=== PATIENT | male | born 1985 | race Caucasian/White ===

== ENCOUNTER 2016-09-17 16:21 | Inpatient (IN) | payer OTHER ==
[2016-09-17] MEDS ORDERED: VANCOMYCIN HCL/NORMAL SALINE 250 ML IV ONE ×2 (18:03→22:00)
[2016-09-17] MEDS ORDERED: MICAFUNGIN NA 100 MG in NS 100 ML IV ONE (18:10)
[2016-09-17 18:12] LABS: % IMMATURE GRANULYOCYTES 0.8 % (0.0-1.1); ABSOLUTE IMMATURE GRANULOCYTES 0.12 10^3/uL (0.00-0.10); ADD DIFF? NO; ADD MORPH? NO; ADD SCAN? NO; ATYPICAL LYMPHOCYTE FLAG 0 (0-99); FRAGMENT RBC FLAG 0 (0-99); HEMATOCRIT 44.4 % (40.0-51.0); HEMOGLOBIN 14.7 g/dL (13.7-17.5); LEFT SHIFT FLG 10 (0-99); LIPEMIA HEMOLYSIS FLAG 80 (0-99); MEAN CELL HEMOGLOBIN 29.1 pg (27.9-34.1); MEAN CELL HEMOGLOBIN CONCENTR. 33.1 g/dL (32.4-36.7); MEAN CELL VOLUME 87.9 fL (81.5-99.8); MEAN PLATELET VOLUME 9.8 fL (8.7-11.7); PLATELET CLUMPS FLAG 0 (0-99); PLATELET COUNT 392 10^3/uL (150-400); RED BLOOD CELL COUNT 5.05 10^6/uL (4.40-6.38); RED CELL DISTRIBUTION WIDTH 12.9 % (11.5-15.2)
[2016-09-17] MEDS ORDERED: GADOBUTROL 10 ML VIAL IVP ONE (18:25)
[2016-09-17 18:27] LABS: ANION GAP 16 mEq/L (8-16); CALCIUM 9.6 mg/dL (8.5-10.4); CARBON DIOXIDE 20 mEq/l (22-31); CHLORIDE 100 mEq/L (97-110); GLOMERULAR FILTRATION RATE > 60; GLUCOSE 87 mg/dL (70-100); POTASSIUM 4.5 mEq/L (3.5-5.2); SODIUM 136 mEq/L (134-144)
[2016-09-17] MEDS ORDERED: NS 1,000 ML IV SCH (19:00)
[2016-09-17 19:09] LABS: ALBUMIN 4.1 g/dL (3.5-5.0); BILIRUBIN,TOTAL 0.8 mg/dL (0.1-1.4); BILIRUBIN-CONJUGATED 0.7 mg/dL (0.0-0.5); BILIRUBIN-UNCONJUGATED 0.1 mg/dL (0.0-1.1); TOTAL PROTEIN 6.9 g/dL (6.3-8.2)
[2016-09-17] MEDS ORDERED: DIAZEPAM 5 MG TAB PO PRN (20:43)
[2016-09-17] MEDS ORDERED: oxyCODONE IR 5 MG TAB PO PRN (20:43)
[2016-09-17] MEDS ORDERED: POLYETHYLENE GLYCOL 3350 17 GM PKT PO PRN (20:44)
[2016-09-17] MEDS ORDERED: BISACODYL 10 MG SUPP PR PRN (20:44)
[2016-09-17 21:12] LABS: SEDIMENTATION RATE 25 MM/HR (0-15)
--- NOTE | 2016-09-17 21:45 | GCON ---
[f rep st] CONSULTATION TIME OF DAY OF CONSULTATION: In the emergency room is 5 p.m. on 09/17/2016. HOSPITAL COURSE/HISTORY/MAJOR MEDICAL FINDINGS: The patient is a 30-year-old gentleman, who on July 10, 2016, underwent a bilateral hemilaminotomy and diskectomy by Dr. Ellis. He initially did okay postoperatively but then developed acute leg pain and back pain approximately 1 month ago. He came to [place] emergency room, underwent MRI, which demonstrated edema and possible infectious changes at the L4-5 disk space. He was taken to the operating room by Dr. Ellis last week for redo decompression and washout. There was some free fluid there and some vancomycin powder was placed at that time. Initial Gram stain was negative. However, over the weekend his cultures came back positive for Aspergillus. Because of that, Infectious Disease with Dr. Gibbons was remotely consulted. As his cultures came back positive with Aspergillus, voriconazole was called in for him and the patient has started this medication p.o. The patient contacted our office over the weekend because he was having worsening hip pain. He then called our office again today because his hip pain was becoming acute. He was unable to bear weight on his leg and his knee was starting to hurt. When he left the hospital, from [facility], he was on Tylenol only and ambulating well. Because of this acute change, we recommended that he come to [facility] emergency room for further evaluation and treatment. Upon examining the patient in the emergency room today, he states that his greatest pain is over his right hip, on the side and the back, and the center in his groin. His , who is with him, states that they had recently gone camping about 3 or 4 weeks ago, and of note, prior to surgery he did have a yeasty rash in his groin. He denies any loss of function or weakness in his legs and denies any loss of bowel or bladder control. PAST MEDICAL HISTORY: Is significant for the recent diskectomy with redo decompression last week at the L4-5 disk space. SOCIAL HISTORY: The patient is here with his . She is . He does not drink any alcohol, smoke, or do illicit drugs. FAMILY HISTORY: Noncontributory. ALLERGIES: No known drug allergies. HOME MEDICATIONS: Include Tylenol as well as the voriconazole. PHYSICAL EXAM: VITALS: BP is 133/87, heart rate is 115, respiratory rate is 18 , he is 96% on room air, temp is 36.5. GENERAL: The patient is in no acute distress. He is alert and oriented x3, answers all questions appropriately. His affect is appropriate for given situation. NEUROLOGIC: Cranial nerves 2- 12 grossly intact. EOMI, PERRLA. The patient is a 5/5 and equal in his bilateral upper and bilateral lower extremities, including his deltoids, triceps , biceps, wrist flexors, extensors, interossei, intrinsic medical billing specialist, iliopsoas, hamstrings, quadriceps, plantar flexion, dorsiflexion, EHL. Sensation is intact in bilateral upper and bilateral lower extremities. Incision is clean, dry, intact without any swelling, erythema, or discharge. ASSESSMENT AND PLAN: The patient is a 30-year-old gentleman, who recently underwent an L4-5 microdiskectomy with washout. Cultures came back positive for Aspergillus and he was started on voriconazole. He has had worsening pain in his hip and his knee in the last 48 hours. At this point in time, we have asked the ER to repeat imaging of the lumbar spine as well as to get a new MRI of the hip and an x-ray of the lungs, given his recent diagnosis. We will have him admitted to Medicine for full workup as well as Infectious Disease consulted. Would recommend q.4 hour neuro checks. Optimization of pain management. If the patient has any change in neurologic or motor exam, please notify Neurosurgery. The patient was seen in the ER with Dr Ellis and he also discussed the plan with the patient and his , who were in agreement with the plan. /[id number]/MODL MTDD
--- NOTE | 2016-09-17 22:00 | GHP ---
[f rep st] HISTORY AND PHYSICAL DATE OF ADMISSION: 09/17/2016 CHIEF COMPLAINT: Back pain. Aspergillus back infection. HISTORY OF PRESENT ILLNESS: The patient is a pleasant 30-year-old male with history of lumbar back pain who underwent L4-5 micro diskectomy on July [address] Teo Wood. Reason for procedure was progressive back pain and inability to ambulate normally and increased "nerve pain in his left leg". Back pain initially started in 2013 as spasms without overt trauma or injury. Six weeks after his surgery he started physical therapy and developed increased pain and twitching in lumbar region. He then had "spasm attack" and went to ER in [place] and was treated for pain and discharged home. Last week, the pain became so bad that he went went back to [place] and underwent decompression and washout. He worked with PT on Saturday and was discharged on Keflex. Cultures resulted 09/15/16 positive for Aspergillus and ID prescribed Voriconazole. At home that night, he could not get ouf of bed or apply any pressure on his legs. The pain in back had radiated to right hip before, but has progressed this weekend without redness or warmth; pain worse with standing. Has had intermittent chills and subjective fevers. No nausea, vomiting, or diarrhea; has been constipated. Pain controlled with minimal narcotics at home. Denies recurrent GI, respiratory infections a child. No prior joint infections. Has asthma and would have "yearly URI" due to that. Camped in [place] for 3 nights in August, [place] in July and stayed in hotel. Lives in a town home built in the that has been renovated in [place]. His neighbors recently gutted their home to rebuild. Denies any IV drug use. Has been on prednisone recently, but for only 10 days. REVIEW OF SYSTEMS: SKIN: complained of small blisters along the edge of his fingers recently in which his PCP called eczema blisters. I completed a 10-point review of systems, negative except as noted in HPI. PAST MEDICAL HISTORY: Lumbar back pain. PAST SURGICAL HISTORY: 1. [place] teeth. 2. Microdiskectomy July 10 and then recent washout and decompression. FAMILY HISTORY: Father with heart disease. Paternal grandmother with diabetes , asthma SOCIAL HISTORY: Lives in [place] with his who is with their first child. A cigar 1-2 times a year. Rare alcohol. No IV drug use. ALLERGIES: Cats. HOME MEDICATIONS: See medication reconciliation. PHYSICAL EXAMINATION: VITAL SIGNS: Temperature 37.4 blood pressure 128/74, heart rate 80s respiration 18, 96% on room air. GENERAL: Patient is lying in bed in no acute distress. Very pleasant. HEENT: PERRLA. EOMI. Oropharynx is clear. No exudate or lesions. CV: Regular rate and rhythm. No murmurs, gallops, or rubs. LUNGS: Clear to auscultation bilaterally. ABDOMEN: Soft, nontender, nondistended. Positive bowel sounds. : No suprapubic tenderness. Mild inguinal rash which appears to be a mild heat rash. MUSCULOSKELETAL: 5/5 upper extremity strength bilaterally. Right hip joint with no reproducible pain, no overlying erythema or warmth. ABDOMEN: Decreased plantar dorsiflexion bilateral lower extremities. No point tenderness over the spine. His surgical incision is clean, dry, intact. No surrounding erythema or signs of infection. NEURO: Normal sensation to touch. PSYCH: Alert and oriented x3 next. LABS: WBC 14, hemoglobin 14, hematocrit 44, platelets 392. Sodium 136, potassium 4.5, carbon dioxide 100, chloride 100, carbon dioxide 20, BUN 20, creatinine 1, glucose 87, calcium 9.6, total bilirubin 0.6, AST 32, ALT 47. CRP is 64. Total protein is 6.9, albumin is 4.1. Immunoglobulin and complement levels are pending. HIV is negative. Chest x-ray, reviewed by me, no opacity or cavitary lesions. Lumbar spine MRI: Postoperative changes at L4-L5 with residual abnormal signal intensity in the disk space as well as continuous endplates of L4-L5 consistent with a history of Aspergillus infection. There has been a posterior decompression laminectomy L4-L5. Soft tissue component eccentric toward the left of the operative level showed an enhancement that may reflect postoperative inflammatory tissue. Lower extremity MRI is pending. ASSESSMENT AND PLAN: 1. Aspergillus lumbar discitis: Unclear etiology; not known to be immunocompromised. HIV negative. Check immunoglobulins and complement levels. Denies any recurrent infections as a child. I spoke with Dr. Luz with Infectious Disease and will treat with Micafungin and Vancomycin. NSGY evaluated and recommended repeat lumbar and hip MRI. Blood cultures pending. Obtain [place] records. 2. Right hip pain: not completely new for him. MRI is pending; if any evidence of fluid, sampling would be warranted. 3. Leukocytosis: Likely secondary to #1 versus stress response. Afebrile currently. Blood cultures are pending. Chest x-ray is negative. 4. Acute on chronic back pain: pain controlled on minimal oxycodone and Valium. 5. Constipation:bowel regimen. 6. Mild acute kidney injury: Cr is 1. IVFs 7. DVT prophylaxis. Lovenox. DISPOSITION: Patient warrants inpatient admission given Aspergillus infection warranting IV antifungal and antibiotics and ID evaluation. /[id number]/MODL MTDD
[2016-09-17] MEDS: SENNOSIDES/DOCUSATE SODIUM TAB PO SCH (22:39)
[2016-09-17] MEDS: ACETAMINOPHEN 325 MG TAB PO PRN (22:41)
--- NOTE | 2016-09-17 23:33 | EDPHY ---
H & P Stated Complaint: Laminectomy , increased pain to right leg Time Seen by Provider: 09/17/16 16:37 HPI/ROS: CHIEF COMPLAINT: Back and left leg pain HISTORY OF PRESENT ILLNESS: This is a 30-year-old immunocompetent male who underwent bilateral hemilaminotomy and diskectomy at L4-5 on July 10 of this year. This surgery was performed by Dr. Ellis (at [facility]). His initial postoperative course was unremarkable but toward the end of July he developed back and leg pain. An MRI scan performed at that time showed changes at the L4- 5 disc space suggestive of infection. On Saturday of last week he return to the operating room for repeat decompression and washout. Cultures obtained during that surgery are positive for Aspergillus. In consultation with Infectious Disease, Dr. Gibbons, he was started on voriconazole. He has taken 3 voriconazole pills. He was discharged from the hospital on Saturday, 3 days ago, and has had progressively worsening hip and leg pain since returning home. He has been unable to bear weight because of pain. He feels as if his muscles are not engaging. He has been using a walker for the last few days. Both legs feel weak. He has not had bowel or bladder changes but does report constipation (not new). REVIEW OF SYSTEMS: A ten point review of systems was performed and is negative with the exception of the items mentioned in the HPI. He states that he has had a groin rash for the past few months. He describes bumps bilateral groin area. No drainage, no fever. Source: Patient, Family, Old records Exam Limitations: No limitations - Personal History Current Tetanus Diphtheria and Acellular Pertussis (TDAP): Yes - Medical/Surgical History PMH: 1. L4-5 bilateral hemilaminotomy and diskectomy on July 10, 2016 2. September 12, 2016 repeat lumbar decompression with washout 3. Environmental asthma Hx Asthma: Yes Hx Chronic Respiratory Disease: No Hx Diabetes: No Hx Cardiac Disease: No Hx Renal Disease: No Hx Cirrhosis: No Hx Alcoholism: No Hx HIV/AIDS: No Hx Splenectomy or Spleen Trauma: No - Social History Smoking Status: Never smoked Additional Social History: He works as a software engineer intern. He is ; he and his are expecting their 1st child later this summer. He he occasionally smokes a cigar. He drinks alcohol socially. No illicit drugs. - Physical Exam Exam: General Appearance: Alert. Vital signs reviewed. Blood pressure 133/87, heart rate 115 at triage. Eyes: Pupils equal and round, no conjunctival injection, no discharge. Anicteric. ENT, Mouth: Mucous membranes are moist, no oropharyngeal erythema or edema. Neck: No lymphadenopathy, supple. Respiratory: Lungs are clear to auscultation; no wheezes, rales, or rhonchi. Cardiovascular: Tachycardic; no murmur, rub, or gallop. Gastrointestinal: Abdomen is soft and nontender, no masses or organomegaly, bowel sounds normal. Groin: Papular rash in the inguinal creases bilaterally. No surrounding erythema. No purulence. Skin: Warm and dry, no rashes on exposed skin, normal color. Back: Surgical incision is clean and dry. No drainage. Extremities: No lower extremity edema, no calf tenderness or swelling. Full active and passive range of motion of his left hip, knee, and ankle. Neurological: Alert and oriented. Moving all four extremities easily and equally. Lower extremity strength is 5/5 with testing of major motor groups. Sensation is intact to light touch over both lower extremities. Deep tendon reflexes are 2+ in the knees, 1+ in the ankles. There are 2 beats of clonus bilaterally. Psychiatric: Normal affect. Constitutional: Initial Vital Signs Temperature (C) 36.5 C 09/17/16 16:22 Heart Rate 115 H 09/17/16 16:22 Respiratory Rate 18 09/17/16 16:22 Blood Pressure 133/87 H 09/17/16 16:22 O2 Sat (%) 96 09/17/16 16:22 O2 Delivery Mode Room Air Allergies/Adverse Reactions: No Known Allergies Allergy (Verified 09/17/16 20:07) Home Medications: Medication Instructions Recorded Baclofen [Baclofen 10 mg (*)] 10 mg PO Q8H PRN 09/17/16 Cephalexin [Keflex (*)] 500 mg PO QID 09/17/16 Diazepam [Valium 5 MG (*)] 5 mg PO DAILY PRN 09/17/16 Lactulose 5 - 10 ml PO Q6H 09/17/16 Omeprazole 40 mg PO DAILY 09/17/16 Voriconazole 200 mg PO BID 09/17/16 oxyCODONE IR [Oxycodone Ir (*)] 5 - 10 mg PO Q4H PRN 09/17/16 Medical Decision Making - Diagnostics Imaging Results: Imaging Impressions Lumbar Spine MRI 09/17/16 17:27 Impression: 1. Postoperative changes at L4-L5, with residual abnormal signal intensity in the disk space as well as the contiguous endplates of L4 and L5, consistent with the history of Aspergillus infection. 2. There has been a posterior decompressive laminectomy at L4-L5. There is an element of central canal stenosis and possible arachnoiditis at the L4-L5 level. 3. Soft tissue component eccentrically towards the left at the operative level showing enhancement that may reflect postoperative/inflammatory tissue. 4. See above report for additional findings. Chest X-Ray 09/17/16 17:33 Impression: Chest negative for acute disease. ED Course/Re-evaluation: 30-year-old male with an apparent fungal infection following lumbar diskectomy. He has had oral antifungal medication. He presents with worsening pain, making it difficult for him to weightbear. He was seen in the emergency department by the neurosurgical service. Infectious Disease has been consulted. He is being admitted to the hospitalist service. MRI of the lumbar spine and the left hip ordered. Chest x-ray also ordered to rule out infection involving the chest cavity. I reviewed his labs. White blood cell count is elevated at almost 15,000. CRP and sed rate are also elevated. Does not appear septic. HIV pending. Micofungin and vancomycin ordered as per Infectious Disease recommendation. Differential Diagnosis: Likely post operative fungal infection but possibility of bacterial infection also exists. Other possibilities include recurrent disc herniation, epidural hematoma, postoperative pain. - Data Points Medications Given: Discontinued Medications Micafungin Sodium 100 mg/ (Sodium Chloride) 100 mls @ 100 mls/hr IV EDNOW ONE Stop: 09/17/16 19:09 Last Admin: 09/17/16 20:07 Dose: 100 mls Vancomycin/Sodium Chloride (Vancomycin 1 Gm (Premix)) 250 mls @ 250 mls/hr IV EDNOW ONE PRN Reason: Protocol Stop: 09/17/16 22:59 Last Admin: 09/17/16 22:04 Dose: 250 mls Departure - Departure Disposition: [facility] Inpatient Acute Clinical Impression: Fungal infection lumbar Condition: Good
[2016-09-18] MEDS: ONDANSETRON 4 MG/2 ML VIAL IVP PRN (04:59)
[2016-09-18 05:04] LABS: % IMMATURE GRANULYOCYTES 0.9 % (0.0-1.1); ABSOLUTE IMMATURE GRANULOCYTES 0.11 10^3/uL (0.00-0.10); ADD DIFF? NO; ADD MORPH? NO; ADD SCAN? NO; ATYPICAL LYMPHOCYTE FLAG 0 (0-99); FRAGMENT RBC FLAG 0 (0-99); HEMATOCRIT 41.7 % (40.0-51.0); LEFT SHIFT FLG 10 (0-99); LIPEMIA HEMOLYSIS FLAG 80 (0-99); MEAN CELL HEMOGLOBIN 28.8 pg (27.9-34.1); MEAN CELL HEMOGLOBIN CONCENTR. 33.6 g/dL (32.4-36.7); MEAN CELL VOLUME 85.8 fL (81.5-99.8); MEAN PLATELET VOLUME 9.4 fL (8.7-11.7); PLATELET CLUMPS FLAG 0 (0-99); PLATELET COUNT 376 10^3/uL (150-400); RED BLOOD CELL COUNT 4.86 10^6/uL (4.40-6.38); RED CELL DISTRIBUTION WIDTH 12.6 % (11.5-15.2)
[2016-09-18 05:32] LABS: ANION GAP 12 mEq/L (8-16); CALCIUM 9.6 mg/dL (8.5-10.4); CARBON DIOXIDE 21 mEq/l (22-31); CHLORIDE 104 mEq/L (97-110); CREATININE 0.9 mg/dL (0.7-1.3); GLOMERULAR FILTRATION RATE > 60; GLUCOSE 99 mg/dL (70-100); POTASSIUM 4.9 mEq/L (3.5-5.2); SODIUM 137 mEq/L (134-144)
--- NOTE | 2016-09-18 07:30 | NEUSURGPN ---
Assessment/Plan: 30y/o male with s/p L4/5 microdiscetomy/decmpression in June 2016 and then redo decompression adn washout on 09/12/16 at [facility] found to Aspergillios infection - will consult IR for percutaneous drain placement today -Hip MRI results pending -Optimize pain management -Appreciate ID recommendations and consultation -Please notify NS with any change in neuro/motor exam Subjective: Hip and low back pain Objective: NAD A&Ox3 MAEx4 5/5 and equal in BUE and BLE. Incision c/d/i - Physician Patient Seen by : [facility] Physical Exam - Vitals, I&O, Labs I and O 09/17/16 09/18/16 09/19/16 05:59 05:59 05:59 Intake Total 400 Output Total 725 Balance -325 Weight 86.183 kg Intake: Oral (ml) 400 Output: Urine (ml) 725 Urinal 725 Other: Number of Voids Urinal 2 Vital Signs Temp Pulse Resp BP Pulse Ox 36.7 C 86 16 119/73 95 09/18/16 04:23 09/18/16 04:23 09/18/16 04:23 09/18/16 04:23 09/18/16 04:23 Laboratory Results 09/18/16 04:55 09/18/16 04:55 ICD10 Worksheet Patient Problems: Problems Problem Status Onset Lumbar back pain Acute - ICD10 Problem Qualifiers (1) Lumbar back pain Qualifiers: Chronicity: C Back pain laterality: B Sciatica presence: S Sciatica laterality: S
[2016-09-18] MEDS: ENOXAPARIN 40 MG/0.4 ML SYR SC SCH (07:49)
[2016-09-18] MEDS ORDERED: PANTOPRAZOLE SODIUM 40 MG TAB PO SCH (09:00)
[2016-09-18] MEDS: MICAFUNGIN NA 100 MG in NS 100 ML IV SCH (09:05)
--- NOTE | 2016-09-18 10:00 | HOSPPROG ---
Hospitalist Progress Note Assessment/Plan: Patient is a 30-year-old male with a history of lumbar back pain who had a L4-5 microdiskectomy in June. Last week the pain became so bad he went to [place] and underwent a decompression and washout. He was discharged on Keflex. Cultures were obtained on 09/15/2016 which were positive for Aspergillus. At that time infections Disease prescribed for voriconazole. He presented to the emergency room with worsening back pain. Today is my 1st encounter with the patient. Chart reviewed. Discussed his care with Dr. Morrison. 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 on Micafungin & Voriconazole has interactions w Valium, oxy & Protonix/ will dc these and start iv Dilaudid pharmacy to evaluate other antispasmodic medications offered patient a PROOF CLERK if needed/ he wants to hold off for now *right hip pain MRI shows nothing acute suspect it is referred pain *Leukocytosis due to the above, will follow *Acute on chronic back pain will add prn Dilaudid *constipation bowel protocol *dvt prophylaxis: hold any medical treatment/ patient to get drain in, should be able to mobilize *Plan: increase fluids while NPO, start bowel regimen/ hasn't had a bowel movement in multiple days/ start iv Dilaudid Subjective: Devin is feeling his back is starting to have spasms. Objective: Vital Signs Temp Pulse Resp BP Pulse Ox 36.6 C 95 16 121/74 H 95 09/18/16 07:44 09/18/16 07:44 09/18/16 07:44 09/18/16 07:44 09/18/16 07:44 Laboratory Results 09/18/16 04:55 09/18/16 04:55 09/17/16 09/18/16 09/19/16 05:59 05:59 05:59 Intake Total 400 Output Total 725 250 Balance -325 -250 - Physical Exam Constitutional: appears nourished, uncomfortable, No not in pain Eyes: PERRL Ears, Nose, Mouth, Throat: hearing normal Cardiovascular: regular rate and rhythym Respiratory: no respiratory distress Gastrointestinal: normoactive bowel sounds Skin: warm, normal color Musculoskeletal: generalized weakness Neurologic: AAOx3, sensation intact bilaterally Psychiatric: interacting appropriately, not anxious ICD10 Worksheet Patient Problems: Problems Problem Status Onset Lumbar back pain Acute
[2016-09-18] MEDS: HYDROmorphONE/DILAUDID 1 MG/ML SYR IVP PRN ×3 (10:42→18:14)
[2016-09-18] MEDS: BACLOFEN 10 MG TAB PO PRN ×2 (10:58→20:32)
[2016-09-18] MEDS: VORICONAZOLE IV SCH ×2 (11:04→20:36)
[2016-09-18] MEDS: D5W IV SCH ×2 (11:04→20:36)
[2016-09-18] MEDS ORDERED: fentaNYL 100 MCG/2 ML INJ ONE (14:01)
[2016-09-18] MEDS ORDERED: MIDAZOLAM 2 MG/2 ML VIAL ONE (14:02)
--- NOTE | 2016-09-18 14:47 | POSTOPPROG ---
Post Op Note Date of Operation: 09/18/16 Surgeon: Ro Long Anesthesia: IV Sedation (fentanyl and versed) Pre-op Diagnosis: back pain Post-op Diagnosis: same Indication: post op fluid collection Procedure: lumbar drain placement Findings: 15cc of pus aspirated at L4-5 Inf/Abcess present in the surg proc area at time of surgery?: Yes Depth: Superfical (Skin SQ) EBL: Minimal Complications: none Drains: Other (8Fr pigtail)
[2016-09-18] MEDS ORDERED: HYDROmorphONE/DILAUDID 1 MG/ML SYR ONE (15:33)
--- NOTE | 2016-09-18 15:37 | GCON ---
[f rep st] CONSULTATION INFECTIOUS DISEASE CONSULTATION DATE OF CONSULTATION: 09/18/2016 REFERRING PHYSICIAN: Eder Ellis MD REASON FOR CONSULTATION: Postoperative lumbar back infection. CHIEF COMPLAINT: Worsening back pain and hip pain. HISTORY OF PRESENT ILLNESS: This is a 30-year-old male, with a past medical history significant for asthma and spinal stenosis, who underwent bilateral hemilaminotomy and microdiskectomy on July 10, 2016. This was done at [facility]. He states that he did well postoperatively without pain or drainage from his operative site. Just about 6 weeks after his surgery he started physical therapy about 1-2 times a week. After the first therapy, he did feel soreness in his back, which did not resolve, and with each continued therapy he had increasing back pain. He does state that he had a steroid epidural injection shot done about a month prior to his initial surgery, which did not alleviate his pain, thus the decision was made to proceed with surgery. Around August 25, he states that he did go camping, where he was sleeping in a tent in a sleeping bag. It had intermittently rained during that trip, but he states that within his tent and sleeping bag area it was not damp or wet. He states that about a week or so prior to his redo surgery and recent washout, he did get injections to the back with lidocaine, he thinks, by his primary care doctor. Due to ongoing increasing pain, he was [facility] and was taken to surgery on the 12 of September, where he underwent L4-L5 epidural mass resection plus abscess evacuation with a redo L4-L5 diskectomy. This surgery was done at [facility]. It is unclear as to whether they have had any ongoing construction work at either of these hospital. Operative note was reviewed and there appeared to be cloudy fluid collections and loculations involving the disk space. Operative cultures were reviewed on [facility] and 1 out of 3 sets of cultures showed growth of Aspergillus fumigatus in the regular cultures as well as the fungal culture. In that particular specimen, there were 5-10 PMNs with no organisms seen on the Gram stain. The other 2 sets of cultures with greater than 25 PMNs had no growth, and a third culture with less than 5 PMNs had no growth as well. The patient was placed on vancomycin while he was in [place] last week, and then was discharged on Keflex on the 14 of September. Operative cultures then grew out Aspergillus on Saturday, the . Dr. Gibbons, was contacted via phone over the weekend and she started him on voriconazole, and he is supposed to see her for the first time tomorrow for formal consult. Due to increasing back pain and hip pain, he came in yesterday for further evaluation. He underwent a lumbar spine MRI which showed postoperative changes at L4-L5, with residual abnormal signal intensity of the disk space, as well as contiguous endplates of L4-L5. Hip MRI is pending. Chest x-ray showed no evidence of pneumonia. Blood cultures x2 sets are pending and he was started on micafungin IV last night. Today, he states that he has increasing pain with headache today. He states that he has taken 3 doses of oral voriconazole and had some blurring of vision. Other related potential exposures over the past couple of months: He lives in a townhouse that was built in the 1970s and was remodeled prior to he and his moving into it. However, over the last couple of months his next unit over to him, which is attached by an adjoining wall, has undergone significant construction and remodeling. He states that occasionally when they were painting the unit he could smell the paint fumes from his ventilation system. REVIEW OF SYSTEMS: GENERAL: Only had low-grade fevers and mild chills this past 7-10 days prior to his recent surgery. HEENT: Head: Has a headache this morning. No blurring of vision today or pain in the eyes. MOUTH: No sore throat difficulty with swallowing. No ear pain or ear drainage. CARDIOVASCULAR : No chest pain, but did have some rapid heartbeats a couple of days ago. RESPIRATORY: Denies any shortness of breath, cough, or sputum production. ABDOMEN: No vomiting or abdominal pain. He is constipated. He has some mild nausea. No diarrhea. BACK: Ongoing lower back pain with some radiation to the hips, interestingly to the right hip as of the last couple of days. Denies any shooting pain down the legs or numbness and tingling down the legs. NEURO: Denies any shooting pain down the legs or numbness or tingling in the legs. : No dysuria. MUSCULOSKELETAL: Other than what is described above, denies any other joint pains. SKIN: No recent rashes. Rest of 10-point review of systems essentially negative except as above. PAST MEDICAL HISTORY: Significant for asthma and spinal stenosis. PAST SURGICAL HISTORY: Significant for recent bilateral hemilaminotomy and microdiskectomy on July 10, 2016, with a redo L4-L5 diskectomy and L4-L5 epidural mass resection and abscess evacuation on September 12, 2016. Other surgeries would be wisdom tooth removal. ALLERGIES: No known drug allergies. SOCIAL HISTORY: He does smoke cigarettes 1-2 times a year. Nonsmoker. Drinks alcohol socially. No illicit drugs. 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 His is with their first child. He has no pets. Travel to [place] in July, where he was staying in a hotel. As mentioned above, camping trip on August 25 for 3 nights in [place]. FAMILY HISTORY: Significant for father with heart disease, grandmother with diabetes. PHYSICAL EXAMINATION: VITAL SIGNS: Temperature current 36.7, blood pressure 119/73, pulse is 86, respiratory rate is 16, saturation 95% on room air. GENERAL: Patient is resting in bed flat on his back. Appears to be in pain. Eyes are sensitive to the light. HEENT: Head is normocephalic. Eyes with mild conjunctival injection and without petechia. Pupils are reactive to light , sensitive to the light as well. Oropharynx: Mild posterior pharyngeal erythema without evidence of oral candidiasis or oral ulcers. CARDIOVASCULAR: S1, S2. Regular rate and rhythm. No murmurs appreciated. RESPIRATORY: Clear to auscultate bilaterally. No obvious rhonchi appreciated, although this is a limited anterior exam. ABDOMEN: Positive bowel sounds in all 4 quadrants. Soft, not obviously distended, although has mild pain on palpation related to bloating. No hepatosplenomegaly appreciated. EXTREMITIES: No lower extremity edema. MUSCULOSKELETAL: No obvious joint effusions or pain on palpation of the joints, particularly of the knees or hips. BACK: Lower lumbar incision site is intact without significant acute erythema noted. There are some mild pigmentation changes noted. No significant tenderness on palpation. No obvious drainage. Motor strength in the lower extremities 4/5 bilaterally, and no loss of sensation. LABORATORY DATA: White blood cell count of 12.1, hemoglobin 14.0, platelets are 376, neutrophil count is 60%, ESR 25. Sodium 137, potassium 4.9, chloride 74, bicarb 21, BUN is 18, creatinine 0.9. LFTs checked yesterday; total bilirubin 0.8, AST 33, ALT 47, alk phos 83, C-reactive protein 64.9. Immunoglobins G, A, and M are pending. Complements C3, C4, CH50 are pending. HIV 1 and 2 antibody negative. Blood cultures x2 sets pending. Imaging results have all been reviewed by me and are stated above. 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 PLAN: The patient is to undergo drain placement today, which I agree with. Will recheck cultures with that. Continue with micafungin for now. We will also start him on voriconazole given extensive nature of infection. Recommend dual therapy for now. Side effects of the medications were discussed with the patient, including the visual side effects which are usually transient and usually improve with ongoing therapy. Reviewed potential durg drug interactions with his current medications and have coordinated care with hospitalist team to discontinue and find alternatives. Also discussed with the patient that this will be a prolonged course of therapy, likely in the order of around 8-12 weeks, if not longer. Check voriconazole trough in 5-7 days. Immunological workup is in progress, and we will continue to follow. I have also contacted [facility] department/[facility] department for help in potential source evaluations as outlined above. Recommend Ct chest to further evaluate for evidence of pulmonary disease,nodules,consolidation etc. Records reviewed in [facility] from [facility]. Time spent, >110 minutes in coordination of care with hospitalist team, [facility], record review and discussion with patient and care coordination with nursing staff. Thank you very much for allowing us to participate in the care of your patient in consultation. /[id number]/MODL MTDD
[2016-09-18] MEDS: METHOCARBAMOL 750 MG TAB PO PRN (17:29)
[2016-09-18] MEDS: MAGNESIUM HYDROXIDE 30 ML UDCUP PO PRN (17:29)
[2016-09-18 19:12] LABS: IMMUNOGLOBULIN A 193 mg/dL (61 - 356); IMMUNOGLOBULIN G 910 mg/dL (767 - 1590); IMMUNOGLOBULIN M 108 mg/dL (37 - 286)
[2016-09-18] MEDS: SENNOSIDES/DOCUSATE SODIUM TAB PO SCH (20:32)
[2016-09-18] MEDS: ACETAMINOPHEN 325 MG TAB PO PRN (23:45)
[2016-09-19] MEDS: METHOCARBAMOL 750 MG TAB PO PRN ×2 (02:04→20:04)
[2016-09-19] MEDS: HYDROmorphONE/DILAUDID 1 MG/ML SYR IVP PRN ×2 (04:29→04:55)
[2016-09-19] MEDS: BACLOFEN 10 MG TAB PO PRN ×2 (04:29→12:15)
--- NOTE | 2016-09-19 08:16 | NEUSURGPN ---
Date of Surgery: 09/12/16 Post Op Day: 7 Assessment/Plan: 30y/o male with s/p L4/5 microdiscetomy/decmpression in June 2016 and then redo decompression and washout on 09/12/16 at [facility] found to Aspergillios infection -IR perc drainage 09/18, cultures pending -Hip MRI normal, suggestive of diskitis and osteomyelitis L4-5 -Optimize pain management, will order oral Dilaudid -Appreciate ID recommendations and consultation -Please notify NS with any change in neuro/motor exam Subjective: Patient complains of lower back spasms Objective: NAD A&Ox3 MAEx4 07/27 and equal in BUE and BLE Incision c/d/i Neuro Check Frequency: per routine Urinary Catheter in Place: No Neurosurgery Physical Exam - Vitals, I&O, Labs I and O 09/18/16 09/19/16 09/20/16 05:59 05:59 05:59 Intake Total 400 900 Output Total 725 2090 Balance -325 -1190 Weight 86.183 kg Intake: Oral (ml) 400 800 IV Infused (ml) 100 Voriconazole 500 mg In 100 D5w 100 ml @ Per Protocol IV Q12HRS [facility] Rx#: [id number] Output: Urine (ml) 725 2000 Urinal 725 2000 MARQUISE Drain Output (ml) 90 Back 90 Other: Number of Voids Urinal 2 3 Microbiology 09/18/16 14:30 Gram Stain - Final Back - Aspirate Vital Signs Temp Pulse Resp BP Pulse Ox 37.2 C 75 14 118/73 95 09/19/16 07:44 09/19/16 07:44 09/19/16 07:44 09/19/16 07:44 09/19/16 07:44 Laboratory Results 09/18/16 04:55 09/18/16 04:55 ICD10 Worksheet Patient Problems: Problems Problem Status Onset Lumbar back pain Acute
[2016-09-19] MEDS: ENOXAPARIN 40 MG/0.4 ML SYR SC SCH (08:28)
[2016-09-19] MEDS: MICAFUNGIN NA 100 MG in NS 100 ML IV SCH (08:28)
[2016-09-19] MEDS: POLYETHYLENE GLYCOL 3350 17 GM PKT PO SCH (08:28)
--- NOTE | 2016-09-19 08:51 | HOSPPROG ---
Hospitalist Progress Note Assessment/Plan: Patient is a 30-year-old male with a history of lumbar back pain who had a L4-5 microdiskectomy in June. Last week the pain became so bad he went to [place] and underwent a decompression and washout. He was discharged on Keflex. Cultures were obtained on 09/15/2016 which were positive for Aspergillus. At that time infections Disease prescribed for voriconazole. He presented to the emergency room with worsening back pain. 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 on Micafungin & Voriconazole has interactions w Valium, oxy & Protonix/ will dc these and start iv Dilaudid s/p drain placement in lumbar area 09/18 *right hip pain MRI shows nothing acute suspect it is referred pain *Leukocytosis due to the above, will follow *Acute on chronic back pain will add prn Dilaudid *constipation bowel protocol *dvt prophylaxis: hold any medical treatment/ patient to get drain in, should be able to mobilize *Plan: i Objective: Vital Signs Temp Pulse Resp BP Pulse Ox 37.2 C 75 14 118/73 95 09/19/16 07:44 09/19/16 07:44 09/19/16 07:44 09/19/16 07:44 09/19/16 07:44 Microbiology 09/18/16 14:30 Gram Stain - Final Back - Aspirate Laboratory Results 09/18/16 04:55 09/18/16 04:55 09/18/16 09/19/16 09/20/16 05:59 05:59 05:59 Intake Total 400 900 Output Total 921 3351 Balance -325 1190 ICD10 Worksheet Patient Problems: Problems Problem Status Onset Lumbar back pain Acute
[2016-09-19] MEDS ORDERED: IOPAMIDOL (ISOVUE-300) 100 ML BTL ONE (09:10)
[2016-09-19 09:46] LABS: % IMMATURE GRANULYOCYTES 0.7 % (0.0-1.1); ABSOLUTE IMMATURE GRANULOCYTES 0.09 10^3/uL (0.00-0.10); ADD DIFF? NO; ADD MORPH? NO; ADD SCAN? NO; ATYPICAL LYMPHOCYTE FLAG 0 (0-99); FRAGMENT RBC FLAG 0 (0-99); HEMATOCRIT 43.2 % (40.0-51.0); HEMOGLOBIN 14.6 g/dL (13.7-17.5); LEFT SHIFT FLG 0 (0-99); LIPEMIA HEMOLYSIS FLAG 90 (0-99); MEAN CELL HEMOGLOBIN CONCENTR. 33.8 g/dL (32.4-36.7); MEAN CELL VOLUME 85.9 fL (81.5-99.8); MEAN PLATELET VOLUME 9.5 fL (8.7-11.7); PLATELET CLUMPS FLAG 0 (0-99); PLATELET COUNT 345 10^3/uL (150-400); RED BLOOD CELL COUNT 5.03 10^6/uL (4.40-6.38); RED CELL DISTRIBUTION WIDTH 12.7 % (11.5-15.2)
[2016-09-19] MEDS ORDERED: D5W IV SCH (10:00)
[2016-09-19] MEDS ORDERED: VORICONAZOLE IV SCH (10:00)
[2016-09-19 10:21] LABS: ALANINE AMINOTRANSFERASE 54 IU/L (21-72); ALKALINE PHOSPHATASE 90 IU/L (38-126); ANION GAP 15 mEq/L (8-16); ASPARTATE AMINOTRANSFERASE 37 IU/L (17-59); BILIRUBIN,TOTAL 0.8 mg/dL (0.1-1.4); CALCIUM 9.8 mg/dL (8.5-10.4); CARBON DIOXIDE 22 mEq/l (22-31); CHLORIDE 101 mEq/L (97-110); GLOMERULAR FILTRATION RATE > 60; GLUCOSE 123 mg/dL (70-100); POTASSIUM 4.6 mEq/L (3.5-5.2); SODIUM 138 mEq/L (134-144)
[2016-09-19] MEDS: HYDROmorphONE/DILAUDID 2 MG TAB PO PRN ×4 (13:40→21:05)
--- NOTE | 2016-09-19 15:59 | HOSPPROG ---
Hospitalist Progress Note Assessment/Plan: Patient is a 30-year-old male with a history of lumbar back pain who had a L4-5 microdiskectomy in June. Last week the pain became so bad he went to [place] and underwent a decompression and washout. He was discharged on Keflex. Cultures were obtained on 09/15/2016 which were positive for Aspergillus. At that time infections Disease prescribed for voriconazole. He presented to the emergency room with worsening back pain. Reviewed his care with Dr Luz. 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 on Micafungin & Voriconazole the Voriconazole has many interactions with other medications (Valium, Protonix, oxy)/ Dr Luz dc'd the Vori patient having severe spasms/ can not start the Valium until tomorrow at 10 a.m. s/p drain placement in lumbar area 09/18 *right hip pain MRI shows nothing acute suspect it is referred pain will order Lidoderm patch *Leukocytosis due to the above, will follow *Acute on chronic back pain will add prn Dilaudid *constipation bowel protocol *dvt prophylaxis: LMWH *Plan: start valium tomorrow at 10 a.m./ trial of lidoderm patch, needs aggressive bowel therapy, but can be addressed once back spasms are under control Subjective: Bob is c/o severe spasms/ pain tony in right hip area. Objective: Vital Signs Temp Pulse Resp BP Pulse Ox 36.6 C 78 14 121/80 H 92 09/19/16 11:44 09/19/16 11:44 09/19/16 11:44 09/19/16 11:44 09/19/16 11:44 Microbiology 09/18/16 14:30 Gram Stain - Final Back - Aspirate Laboratory Results 09/19/16 09:29 09/19/16 09:29 09/18/16 09/19/16 09/20/16 05:59 05:59 05:59 Intake Total 400 900 Output Total 725 2090 580 Balance -325 -4052 -580 - Physical Exam Constitutional: uncomfortable, No not in pain Eyes: PERRL Ears, Nose, Mouth, Throat: hearing normal Cardiovascular: regular rate and rhythym Respiratory: no respiratory distress Gastrointestinal: normoactive bowel sounds, No tenderness, No guarding, No rebound Skin: warm Musculoskeletal: muscular tenderness Neurologic: AAOx3 Psychiatric: interacting appropriately ICD10 Worksheet Patient Problems: Problems Problem Status Onset Lumbar back pain Acute
[2016-09-19 16:41] LABS: C3 COMPLEMENT COMPONENT 169 mg/dL (75 - 175); C4 COMPLEMENT COMPONENT 37 mg/dL (14 - 40)
[2016-09-19] MEDS: LIDOCAINE 5% 1 EA PATCH TD SCH (17:15)
--- NOTE | 2016-09-19 17:15 | PCMIDPN ---
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 Patient is currently on both micafungin and voriconazole. He is having some vision changes on voriconazole which is tolerable however given the interactions that voriconazole has with a variety of other medications he is unable to receive muscle relaxers, sedatives and some pain medications. Given this restriction we will discontinue the voriconazole and continue with micafungin monotherapy. The value of dual coverage in Aspergillus is seen in immunocompromised patients with pulmonary disease and some disseminated disease. Plan: 1. Discontinue voriconazole. 2. Continue micafungin 3. Follow most recent drainage cultures and his clinical course. 09/19/16 18:40 Subjective: Patient is resting in his hospital bed. Complains of severe muscle spasms around his drain site. Pain is not well controlled. No fevers or chills. Objective: Voriconazole # 1 Micafungin # 2 Vital Signs Temp Pulse Resp BP Pulse Ox 37.2 C 84 14 125/80 H 97 09/19/16 15:55 09/19/16 15:55 09/19/16 15:55 09/19/16 15:55 09/19/16 15:55 Microbiology 09/18/16 14:30 Gram Stain - Final Back - Aspirate Laboratory Results 09/19/16 09:29 09/19/16 09:29 09/18/16 09/19/16 09/20/16 05:59 05:59 05:59 Intake Total 400 900 Output Total 725 2090 730 Balance -325 -1190 -730 ESR 25 MM/HR (0-15) H 09/17/16 17:55 C-Reactive Protein 64.9 mg/L (<10.0) H 09/17/16 Unknown - Physical Exam General Appearance: WD/WN, alert, apparent distress (Secondary to back pain), non-toxic Respiratory: lungs clear, normal breath sounds, No respiratory distress Cardiac/Chest: regular rate, rhythm, No tachycardia Back: other (Drain in place) Skin: normal color, warm/dry, No rash Neuro/Psych: alert, normal mood/affect, oriented x 3 ICD10 Worksheet Patient Problems: Problems Problem Status Onset Lumbar back pain Acute
[2016-09-19] MEDS: SENNOSIDES/DOCUSATE SODIUM TAB PO SCH (20:04)
[2016-09-19] MEDS: MAGNESIUM HYDROXIDE 30 ML UDCUP PO PRN (20:10)
[2016-09-19] MEDS: PATCH REMOVAL 1 EA PATCH TD SCH (20:54)
[2016-09-20] MEDS: HYDROmorphONE/DILAUDID 2 MG TAB PO PRN ×2 (01:07→04:11)
[2016-09-20] MEDS: METHOCARBAMOL 750 MG TAB PO PRN (04:11)
--- NOTE | 2016-09-20 07:47 | NEUSURGPN ---
Date of Surgery: 09/12/16 Post Op Day: 8 Assessment/Plan: 30y/o male with s/p L4/5 microdiscetomy/decmpression in June 2016 and then redo decompression and washout on 09/12/16 at [facility] found to Aspergillios infection -IR perc drainage 09/18, cultures pending -Hip MRI normal, suggestive of diskitis and osteomyelitis L4-5 -Pain control improved today -Will add Valium for spasms when working with PT -Start gabapentin today to help with right leg radiculopathy -Leave MARQUISE in today -Consult for rehab, try to get to rehab today or tomorrow per PT/OT rec -Appreciate ID recommendations and consultation, will need recommendations for out-pt medications-rehab -Please notify NS with any change in neuro/motor exam Subjective: low back pain, right lateral thigh pain, feels improved from yesterday Objective: NAD A&Ox3 MAEx4 07/27 and equal in BUE and BLE Incision c/d/i MARQUISE in place Neuro Check Frequency: per routine Urinary Catheter in Place: No - Physician Discussed Patient with DrNorma: Rhonda Neurosurgery Physical Exam - Vitals, I&O, Labs I and O 09/19/16 09/20/16 09/21/16 05:59 05:59 05:59 Intake Total 900 450 Output Total 0 1225 Balance -1190 -775 Intake: Oral (ml) 800 350 IV Infused (ml) 100 100 Voriconazole 500 mg In 100 100 D5w 100 ml @ Per Protocol IV Q12HRS [facility]CLUDES [facility] Rx#: [id number] Output: Urine (ml) 1999 1180 Urinal 1999 1180 MARQUISE Drain Output (ml) 90 45 Back 90 45 Other: Number of Voids Urinal 3 1 Microbiology 09/18/16 14:30 Mycobacterial Smear (LIZBET) - Final Back - Aspirate 09/18/16 14:30 Gram Stain - Final Back - Aspirate Vital Signs Temp Pulse Resp BP Pulse Ox 37.1 C 89 18 122/75 H 93 09/19/16 23:41 09/19/16 23:41 09/19/16 23:41 09/19/16 23:41 09/19/16 23:41 Laboratory Results 09/19/16 09:29 09/19/16 09:29 ICD10 Worksheet Patient Problems: Problems Problem Status Onset Lumbar back pain Acute
[2016-09-20] MEDS: POLYETHYLENE GLYCOL 3350 17 GM PKT PO SCH (09:18)
[2016-09-20] MEDS: ACETAMINOPHEN 325 MG TAB PO PRN ×3 (09:18→20:22)
[2016-09-20] MEDS: ENOXAPARIN 40 MG/0.4 ML SYR SC SCH (09:18)
[2016-09-20] MEDS: LIDOCAINE 5% 1 EA PATCH TD SCH (09:18)
[2016-09-20] MEDS: MICAFUNGIN NA 100 MG in NS 100 ML IV SCH (09:19)
[2016-09-20] MEDS: DIAZEPAM 2 MG TAB PO PRN ×3 (10:59→23:07)
--- NOTE | 2016-09-20 15:07 | PCMIDPN ---
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 No evidence of pulmonary Aspergillus. 09/12/2016 patient under went washout down to epidural space with redo L4-L5 laminectomy. Epidural cultures are negative to date but tissue cultures are positive. Patient underwent repeat MRI with residual abnormal signal in the disc space and continuous end plates L4-L5 consistent with osteomyelitis/diskitis and abscess in the more superficial tissues. He underwent IR drainage 09/18/2016 and cultures already demonstrate Aspergillus, although he only received 2-3 days of antifungal prior --continue with micafungin, no evidence that dual therapy is needed --due to side effect of voriconazole, i.e. visual changes, if choose to change to p.o. therapy could use posaconazole --would recommend 8 weeks of therapy at minimum following last surgical intervention --reviewed need for PICC line placement for IV micafungin, likely need for additional debridement due to nature of infection from Aspergillus, reviewed negative CT scan, negative immunologic workup and negative HIV testing. Also showed patient abnormal MRI Subjective: Patient was initially started on voriconazole with significant visual changes including flashes and color change. This has resolved since voriconazole has been discontinued. In addition this allowed him to get appropriate muscle relaxers for his back pain. His pain is much improved today and he is able to ambulate with assistance. Objective: Vital Signs Temp Pulse Resp BP Pulse Ox 36.6 C 78 12 134/78 H 96 09/20/16 08:11 09/20/16 08:11 09/20/16 08:11 09/20/16 08:11 09/20/16 08:11 Microbiology 09/18/16 14:30 Gram Stain - Final Back - Aspirate 09/18/16 14:30 Mycobacterial Smear (LIZBET) - Final Back - Aspirate Laboratory Results 09/19/16 09:29 09/19/16 09:29 09/19/16 09/20/16 09/21/16 05:59 05:59 05:59 Intake Total 900 450 440 Output Total 2090 1225 600 Balance -1190 -775 -160 ESR 25 MM/HR (0-15) H 09/17/16 17:55 C-Reactive Protein 64.9 mg/L (<10.0) H 09/17/16 Unknown - Physical Exam General Appearance: alert, no apparent distress Respiratory: lungs clear, No accessory muscle use Neck: supple Cardiac/Chest: regular rate, rhythm Abdomen: non-tender, soft Neuro/Psych: no motor/sensory deficits, alert, normal mood/affect, oriented x 3 - Time Spent With Patient Time Spent with Patient: greater than 35 minutes Time Spent with Patient: Greater than 35 minutes spent on this patients care, greater than 50% of time spent counseling, educating, and coordinating care regarding the above mentioned plan. ICD10 Worksheet Patient Problems: Problems Problem Status Onset Lumbar back pain Acute
[2016-09-20] MEDS ORDERED: ALTEPLASE 2 MG VIAL IVP PRN (15:10)
--- NOTE | 2016-09-20 15:12 | HOSPPROG ---
Hospitalist Progress Note Assessment/Plan: Patient is a 30-year-old male with a history of lumbar back pain who had a L4-5 microdiskectomy in June. Last week the pain became so bad he went to [place] and underwent a decompression and washout. He was discharged on Keflex. Cultures were obtained on 09/15/2016 which were positive for Aspergillus. At that time infections Disease prescribed for voriconazole. He presented to the emergency room with worsening back pain. Reviewed his care with Dr Kinsey. 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 on Micafungin/Voriconazole dc on 09/19 s/p drain placement in lumbar area 09/18 pain is much improved with the valium/ was having significant spasms yesterday will likely need 6 weeks of abx *right hip pain/possibly piriformis area/more gluteal MRI shows nothing acute suspect it is referred pain will order Lidoderm patch *Leukocytosis due to the above, will follow *Acute on chronic back pain better today *constipation bowel protocol *dvt prophylaxis: LMWH Subjective: Bob said his back spasms are much better/ he's hungry. Objective: Vital Signs Temp Pulse Resp BP Pulse Ox 36.6 C 78 12 134/78 H 96 09/20/16 08:11 09/20/16 08:11 09/20/16 08:11 09/20/16 08:11 09/20/16 08:11 Microbiology 09/18/16 14:30 Gram Stain - Final Back - Aspirate 09/18/16 14:30 Mycobacterial Smear (LIZBET) - Final Back - Aspirate Laboratory Results 09/19/16 09:29 09/19/16 09:29 09/19/16 09/20/16 09/21/16 05:59 05:59 05:59 Intake Total 900 450 440 Output Total 2090 1225 600 Balance -1190 -775 -160 - Physical Exam Constitutional: no apparent distress, appears nourished Eyes: PERRL Ears, Nose, Mouth, Throat: hearing normal Respiratory: no respiratory distress Skin: warm Musculoskeletal: muscular tenderness, generalized weakness Neurologic: AAOx3 Psychiatric: interacting appropriately, not anxious ICD10 Worksheet Patient Problems: Problems Problem Status Onset Lumbar back pain Acute
[2016-09-20] MEDS: GABAPENTIN 100 MG CAP PO SCH (20:21)
[2016-09-20] MEDS: SENNOSIDES/DOCUSATE SODIUM TAB PO SCH (20:22)
[2016-09-20] MEDS: PATCH REMOVAL 1 EA PATCH TD SCH (20:23)
[2016-09-21] MEDS: ACETAMINOPHEN 325 MG TAB PO PRN ×4 (04:10→16:36)
[2016-09-21] MEDS: DIAZEPAM 2 MG TAB PO PRN ×4 (04:59→20:51)
[2016-09-21] MEDS: POLYETHYLENE GLYCOL 3350 17 GM PKT PO SCH (08:50)
[2016-09-21] MEDS: GABAPENTIN 100 MG CAP PO SCH (08:51)
[2016-09-21] MEDS: ENOXAPARIN 40 MG/0.4 ML SYR SC SCH (08:53)
[2016-09-21] MEDS: MAGNESIUM HYDROXIDE 30 ML UDCUP PO PRN (08:54)
[2016-09-21] MEDS: MICAFUNGIN NA 100 MG in NS 100 ML IV SCH (08:55)
[2016-09-21] MEDS: LACTULOSE 20 GM/30 ML UDCUP PO PRN (09:06)
--- NOTE | 2016-09-21 09:43 | NEUSURGPN ---
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 -Pain control improved with Valium -Leave MARQUISE in for now -Consult for rehab -Will continue to monitor patient over the weekend -Plan for new MRI lumbar spine with/without Saturday -If patients symptoms increase, will take to OR for another I&D with Dr Ellis -Please notify NS with any change in neuro/motor exam Subjective: Pain improved with Valium Objective: NAD A&Ox3 MAEx4 07/27 and equal in BUE and BLE Incision c/d/i MARQUISE in place Neuro Check Frequency: per routine Urinary Catheter in Place: No - Physician Discussed Patient with : Rhonda Neurosurgery Physical Exam - Vitals, I&O, Labs I and O 09/20/16 09/21/16 09/22/16 05:59 05:59 05:59 Intake Total 450 2240 Output Total 1225 2000 Balance -775 240 Intake: Oral (ml) 350 2140 IV Infused (ml) 100 100 Micafungin Na 100 mg In 100 Ns 100 ml @ 100 mls/hr IV DAILY [facility] Rx#:[id number] Voriconazole 500 mg In 100 D5w 100 ml @ Per Protocol IV Q12HRS [facility] Rx#: [id number] Output: Urine (ml) 1180 2000 Urinal 1180 2000 MARQUISE Drain Output (ml) 45 Back 45 Other: Intake Quantity Yes Sufficient Number of Voids Urinal 1 2 Microbiology 09/18/16 14:30 Gram Stain - Final Back - Aspirate Vital Signs Temp Pulse Resp BP Pulse Ox 36.7 C 71 16 109/60 94 09/21/16 08:00 09/21/16 08:00 09/21/16 08:00 09/21/16 08:00 09/21/16 08:00 Laboratory Results 09/19/16 09:29 09/19/16 09:29 ICD10 Worksheet Patient Problems: Problems Problem Status Onset Lumbar back pain Acute
--- NOTE | 2016-09-21 10:49 | PCMIDPN ---
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 No evidence of pulmonary Aspergillus or immune dysfunction. 09/12/2016 patient under went washout down to epidural space with redo L4-L5 laminectomy. Epidural cultures are negative to date but tissue cultures are positive. Concern that patient will need repeat debridement as MRI with residual abnormal signal in the disc space and continuous end plates L4-L5 consistent with osteomyelitis/diskitis and abscess in the more superficial tissues and IR drainage 09/18/2016cultures already demonstrate Aspergillus - although he only received 2-3 days of antifungal prior. MARQUISE with minimal output total is 135cc purulent material but non recorded today so far Recommendations: --continue with micafungin, no evidence that dual therapy is needed, discussed with mycoses expert at [facility] --due to side effect of voriconazole, i.e. visual changes, if choose to change to p.o. therapy at some point could use posaconazole --would recommend 8 weeks of therapy at minimum following last surgical intervention --PICC line placement --plan repeat MRI Saturday or Saturday for reassessment of need for repeat debridement or earlier if back symptoms worsen . Based on prior experience with past similar cases typically requires multiple debridements --CBC in AM --will check aspergillus An, if positive, could monitor serially to confirm response to therapy --CD4/CD8 levels pending medications Micafungin 100 mg IV daily, #4 Care was coordinated with Dr Ellis Subjective: patient with a bit of back discomfort but relates to increased activity yesterday Objective: Vital Signs Temp Pulse Resp BP Pulse Ox 36.7 C 71 16 109/60 94 09/21/16 08:00 09/21/16 08:00 09/21/16 08:00 09/21/16 08:00 09/21/16 08:00 Microbiology 09/18/16 14:30 Gram Stain - Final Back - Aspirate Laboratory Results 09/19/16 09:29 09/19/16 09:29 09/20/16 09/21/16 09/22/16 05:59 05:59 05:59 Intake Total 450 2240 Output Total 1225 2000 Balance -775 240 ESR 25 MM/HR (0-15) H 09/17/16 17:55 C-Reactive Protein 64.9 mg/L (<10.0) H 09/17/16 Unknown - Physical Exam General Appearance: alert, no apparent distress Respiratory: lungs clear, No accessory muscle use Neck: supple Cardiac/Chest: regular rate, rhythm Extremities: No pedal edema Abdomen: non-tender, soft Male Genitalia: No morales Skin: No rash Neuro/Psych: no motor/sensory deficits, alert, normal mood/affect, oriented x 3 - Time Spent With Patient Time Spent with Patient: greater than 35 minutes Time Spent with Patient: Greater than 35 minutes spent on this patients care, greater than 50% of time spent counseling, educating, and coordinating care regarding the above mentioned plan. ICD10 Worksheet Patient Problems: Problems Problem Status Onset Lumbar back pain Acute
--- NOTE | 2016-09-21 11:20 | HOSPPROG ---
Hospitalist Progress Note Assessment/Plan: Patient is a 30-year-old male with a history of lumbar back pain who had a L4-5 microdiskectomy in June. Last week the pain became so bad he went to [place] and underwent a decompression and washout. He was discharged on Keflex. Cultures were obtained on 09/15/2016 which were positive for Aspergillus. At that time infections Disease prescribed for voriconazole. He presented to the emergency room with worsening back pain. Reviewed his care with Dr Kinsey. 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 on Micafungin 100mg daily #4/ Voriconazole dc on 09/19 (dual therapy is not needed) s/p drain placement in lumbar area 09/18 pain is much improved with the Valium/ was having significant spasms yesterday will likely need 8 weeks of abx repeat MRI on Saturday or Saturday/ may need further debridement to get PICC line *right hip pain/possibly piriformis area/more gluteal MRI shows nothing acute suspect it is referred pain Lidoderm patch *Leukocytosis due to the above, will follow *Acute on chronic back pain better today *constipation bowel protocol resolved *dvt prophylaxis: LMWH Subjective: Bob is feeling better today/ concerned about when he gets discharged and has many steps in his home. Objective: Vital Signs Temp Pulse Resp BP Pulse Ox 36.7 C 71 16 109/60 94 09/21/16 08:00 09/21/16 08:00 09/21/16 08:00 09/21/16 08:00 09/21/16 08:00 Microbiology 09/18/16 14:30 Gram Stain - Final Back - Aspirate Laboratory Results 09/19/16 09:29 09/19/16 09:29 09/20/16 09/21/16 09/22/16 05:59 05:59 05:59 Intake Total 450 2240 Output Total 1225 2000 Balance -775 240 - Physical Exam Constitutional: uncomfortable Eyes: PERRL, other (wears glasses) Ears, Nose, Mouth, Throat: hearing normal Cardiovascular: regular rate and rhythym Respiratory: no respiratory distress Gastrointestinal: normoactive bowel sounds Skin: warm Musculoskeletal: muscular tenderness, generalized weakness Neurologic: AAOx3, sensation intact bilaterally Psychiatric: interacting appropriately, not anxious ICD10 Worksheet Patient Problems: Problems Problem Status Onset Lumbar back pain Acute
[2016-09-21] MEDS: LIDOCAINE 5% 1 EA PATCH TD SCH (12:26)
[2016-09-21] MEDS: PATCH REMOVAL 1 EA PATCH TD SCH (20:52)
[2016-09-21] MEDS: SENNOSIDES/DOCUSATE SODIUM TAB PO SCH (20:52)
[2016-09-21] MEDS: traMADol 50 MG TAB PO PRN (21:58)
[2016-09-22] MEDS: DIAZEPAM 2 MG TAB PO PRN ×5 (00:16→20:32)
[2016-09-22] MEDS: ACETAMINOPHEN 325 MG TAB PO PRN (00:16)
[2016-09-22 04:37] LABS: % IMMATURE GRANULYOCYTES 0.4 % (0.0-1.1); ABSOLUTE IMMATURE GRANULOCYTES 0.04 10^3/uL (0.00-0.10); ADD DIFF? NO; ADD MORPH? NO; ADD SCAN? NO; ATYPICAL LYMPHOCYTE FLAG 10 (0-99); FRAGMENT RBC FLAG 0 (0-99); HEMATOCRIT 41.3 % (40.0-51.0); HEMOGLOBIN 13.8 g/dL (13.7-17.5); LEFT SHIFT FLG 0 (0-99); LIPEMIA HEMOLYSIS FLAG 80 (0-99); MEAN CELL HEMOGLOBIN 29.1 pg (27.9-34.1); MEAN CELL HEMOGLOBIN CONCENTR. 33.4 g/dL (32.4-36.7); MEAN CELL VOLUME 86.9 fL (81.5-99.8); MEAN PLATELET VOLUME 9.4 fL (8.7-11.7); PLATELET CLUMPS FLAG 0 (0-99); PLATELET COUNT 388 10^3/uL (150-400); RED BLOOD CELL COUNT 4.75 10^6/uL (4.40-6.38); RED CELL DISTRIBUTION WIDTH 12.5 % (11.5-15.2)
[2016-09-22] MEDS: HYDROmorphONE/DILAUDID 2 MG TAB PO PRN (05:36)
[2016-09-22] MEDS: MICAFUNGIN NA 100 MG in NS 100 ML IV SCH (09:05)
[2016-09-22] MEDS: ENOXAPARIN 40 MG/0.4 ML SYR SC SCH (09:12)
[2016-09-22] MEDS: GABAPENTIN 100 MG CAP PO SCH ×3 (09:14→21:49)
[2016-09-22] MEDS: POLYETHYLENE GLYCOL 3350 17 GM PKT PO SCH (09:17)
[2016-09-22] MEDS ORDERED: ACETAMINOPHEN 500 MG TAB PO PRN (09:40)
--- NOTE | 2016-09-22 09:46 | NEUSURGPN ---
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 I have asked them to discuss these further with ID rounding physician Subjective: low back pain, right hip, lateral leg pain 05/04. Increased after increased activity yesterday Objective: NAD A&Ox3 MAEx4 07/27 and equal in BUE and BLE. Incision c/d/i. MARQUISE drain output pink tinged. - Physician Discussed Patient with Dr.: Ellis Neurosurgery Physical Exam - Vitals, I&O, Labs I and O 09/21/16 09/22/16 09/23/16 05:59 05:59 05:59 Intake Total 2240 1250 Output Total 2000 645 Balance 240 605 Intake: Oral (ml) 2140 1250 IV Infused (ml) 100 Micafungin Na 100 mg In 100 Ns 100 ml @ 100 mls/hr IV DAILY [facility] Rx#:[id number] Output: Urine (ml) 2000 600 Toilet 600 Urinal 2000 MARQIUSE Drain Output (ml) 45 Back 45 Other: Intake Quantity Yes Yes Sufficient Number of Voids Toilet 1 Urinal 2 2 Number of Stools Urinal 2 Microbiology 09/18/16 14:30 Gram Stain - Final Back - Aspirate Vital Signs Temp Pulse Resp BP Pulse Ox 36.2 C 98 16 126/81 H 93 09/22/16 08:00 09/22/16 08:00 09/22/16 08:00 09/22/16 08:00 09/22/16 08:00 Laboratory Results 09/22/16 04:30 09/19/16 09:29 ICD10 Worksheet Patient Problems: Problems Problem Status Onset Lumbar back pain Acute - ICD10 Problem Qualifiers (1) Lumbar back pain Qualifiers: Chronicity: C Back pain laterality: B Sciatica presence: S Sciatica laterality: S
[2016-09-22] MEDS: traMADol 50 MG TAB PO PRN (12:35)
[2016-09-22] MEDS: LIDOCAINE 5% 1 EA PATCH TD SCH (12:35)
--- NOTE | 2016-09-22 15:23 | HOSPPROG ---
Hospitalist Progress Note Assessment/Plan: Patient is a 30-year-old male with a history of lumbar back pain who had a L4-5 microdiskectomy in June. Last week the pain became so bad he went to [place] and underwent a decompression and washout. He was discharged on Keflex. Cultures were obtained on 09/15/2016 which were positive for Aspergillus. At that time infections Disease prescribed for voriconazole. He presented to the emergency room with worsening back pain. Reviewed his care with Dr Morrison. 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 on Micafungin 100mg daily #5/ Voriconazole dc on 09/19 (dual therapy is not needed) s/p drain placement in lumbar area 09/18 will likely need 8 weeks of abx repeat MRI on Saturday or Saturday/ may need further debridement/explained this to Bob and his to get PICC line *right hip pain/possibly piriformis area/more gluteal/ radiculopathy type pain in addition MRI shows nothing acute suspect it is referred pain Lidoderm patch scheduled Tylenol, prn Robaxin, increased gabapentin dose *Leukocytosis due to the above, will follow *Acute on chronic back pain better today *constipation bowel protocol resolved *dvt prophylaxis: LMWH Subjective: Bob is teary eyed about being in the hospital/ cont to have spasms at his left gluteal area radiating down his r leg. Objective: Vital Signs Temp Pulse Resp BP Pulse Ox 36.2 C 98 16 126/81 H 93 09/22/16 08:00 09/22/16 08:00 09/22/16 08:00 09/22/16 08:00 09/22/16 08:00 Microbiology 09/18/16 14:30 Gram Stain - Final Back - Aspirate Laboratory Results 09/22/16 04:30 09/19/16 09:29 09/21/16 09/22/16 09/23/16 05:59 05:59 05:59 Intake Total 2240 1250 Output Total 1999 645 100 Balance 240 605 -100 - Physical Exam Constitutional: uncomfortable Eyes: PERRL Ears, Nose, Mouth, Throat: hearing normal Cardiovascular: regular rate and rhythym Respiratory: no respiratory distress Gastrointestinal: normoactive bowel sounds Skin: warm, No normal color (pale) Musculoskeletal: muscular tenderness Neurologic: AAOx3 Psychiatric: interacting appropriately ICD10 Worksheet Patient Problems: Problems Problem Status Onset Lumbar back pain Acute
[2016-09-22] MEDS: ACETAMINOPHEN 500 MG TAB PO SCH ×2 (16:14→21:49)
--- NOTE | 2016-09-22 16:26 | PCMIDPN ---
Assessment/Plan: Assessment/Plan: 1. Postoperative back infection with possible L4/5 diskitis/osteomyelitis secondary to Asperigillus: - Hx of micro diskectomy and bilateral hemilaminotomy on 07/10/2016. On 2016 patient under went washout down to epidural space with redo L4-L5 laminectomy. - s/p drain placement on 09/18/16--- Cx with Aspergillus. iniital positive cx from [facility] on 09/12/16 - Currenlty on Micafungin therapy. -pain management per primary team -Recheck crp tomorrow. - Aspergillus Ag and CD4/8 profile pending -Consider MRI tomorrow if still having significant amount pain - Long discussion with patient, , mother at bedside. discussed plan of care , lab review, mri, principles behind additional wash outs/debridment to aid with response to medical therapy, Aspergillus in general, etc. -care coordinated with hospitalist team and RN. Medyvette micafungin 100mg daily- Subjective: afebrile. still in pain in the back and right hip. is having some pain involving the right testes and inguinal area intermittently as well. denies sob , sputum production, abd pian. had several loose stools yestrday, none today. was receiving laxatives yesterday. denies numbness/tingling down extremities. walking around and working with PT. drain in place with more clear to slightly yellow tinged fluid. per patient this is different than previous day.s it is thin appearing. not drinking much fluids today. urine dark Objective: Vital Signs Temp Pulse Resp BP Pulse Ox 36.2 C 98 16 126/81 H 93 09/22/16 08:00 09/22/16 08:00 09/22/16 08:00 09/22/16 08:00 09/22/16 08:00 Microbiology 09/18/16 14:30 Gram Stain - Final Back - Aspirate Laboratory Results 09/22/16 04:30 09/19/16 09:29 09/21/16 09/22/16 09/23/16 05:59 05:59 05:59 Intake Total 2240 1250 Output Total 2000 645 100 Balance 240 605 -100 ESR 25 MM/HR (0-15) H 09/17/16 17:55 C-Reactive Protein 64.9 mg/L (<10.0) H 09/17/16 Unknown - Physical Exam General Appearance: alert, other (uncomfortable) EENT: other (geographic tongue.), No thrush Respiratory: lungs clear Cardiac/Chest: regular rate, rhythm, No systolic murmur Extremities: No swelling Abdomen: normal bowel sounds, non-tender, soft, No distended Male Genitalia: other (mild tenderness on right testes.no swelling,no erythema, or induration noted.), No scrotal edema Skin: No erythema - Time Spent With Patient Time Spent with Patient: greater than 35 minutes Time Spent with Patient: Greater than 35 minutes spent on this patients care, greater than 50% of time spent counseling, educating, and coordinating care regarding the above mentioned plan. ICD10 Worksheet Patient Problems: Problems Problem Status Onset Lumbar back pain Acute
[2016-09-22] MEDS: SENNOSIDES/DOCUSATE SODIUM TAB PO SCH (20:32)
[2016-09-22] MEDS: METHOCARBAMOL 750 MG TAB PO PRN (21:49)
[2016-09-22] MEDS: PATCH REMOVAL 1 EA PATCH TD SCH (21:58)
[2016-09-22] MEDS ORDERED: ACETAMINOPHEN 500 MG TAB PO SCH (22:00)
[2016-09-23] MEDS: DIAZEPAM 2 MG TAB PO PRN ×5 (00:45→18:36)
[2016-09-23] MEDS: traMADol 50 MG TAB PO PRN ×3 (02:43→16:36)
[2016-09-23 05:23] LABS: % IMMATURE GRANULYOCYTES 0.6 % (0.0-1.1); ABSOLUTE IMMATURE GRANULOCYTES 0.06 10^3/uL (0.00-0.10); ADD DIFF? NO; ADD MORPH? NO; ADD SCAN? NO; ANION GAP 13 mEq/L (8-16); ATYPICAL LYMPHOCYTE FLAG 10 (0-99); C-REACTIVE PROTEIN 60.7 mg/L (<10.0); CALCIUM 9.8 mg/dL (8.5-10.4); CARBON DIOXIDE 25 mEq/l (22-31); CHLORIDE 102 mEq/L (97-110); CREATININE 0.9 mg/dL (0.7-1.3); FRAGMENT RBC FLAG 0 (0-99); GLOMERULAR FILTRATION RATE > 60; GLUCOSE 98 mg/dL (70-100); HEMATOCRIT 41.5 % (40.0-51.0); HEMOGLOBIN 13.6 g/dL (13.7-17.5); LEFT SHIFT FLG 0 (0-99); LIPEMIA HEMOLYSIS FLAG 80 (0-99); MEAN CELL HEMOGLOBIN 28.5 pg (27.9-34.1); MEAN CELL HEMOGLOBIN CONCENTR. 32.8 g/dL (32.4-36.7); MEAN CELL VOLUME 86.8 fL (81.5-99.8); MEAN PLATELET VOLUME 9.9 fL (8.7-11.7); PLATELET CLUMPS FLAG 0 (0-99); PLATELET COUNT 407 10^3/uL (150-400); POTASSIUM 4.5 mEq/L (3.5-5.2); RED BLOOD CELL COUNT 4.78 10^6/uL (4.40-6.38); RED CELL DISTRIBUTION WIDTH 12.5 % (11.5-15.2); SODIUM 140 mEq/L (134-144)
[2016-09-23] MEDS: ACETAMINOPHEN 500 MG TAB PO SCH ×2 (06:05→12:56)
--- NOTE | 2016-09-23 09:41 | PCMIDPN ---
Assessment/Plan: Assessment/Plan: 1. Postoperative back infection with possible L4/5 diskitis/osteomyelitis secondary to Asperigillus: - Hx of micro diskectomy and bilateral hemilaminotomy on 07/10/2016. On 2016 patient under went washout down to epidural space with redo L4-L5 laminectomy. - s/p drain placement on 09/18/16--- Cx with Aspergillus. initial positive cx from [facility] on 09/12/16 - Currently on Micafungin therapy. -pain management per primary team -Crp slightly trending down. Reviewed today's labs with patient/. Slight trend up but may be reactive to yesterday and recruiting internship events. - Aspergillus Ag and CD4/8 profile pending -MRI scheduled for Saturday morning. If pain worsens, has fever, clinically changes, then would check MRI today. - Reviewed plan of care with patient, . Meds micafungin 100mg daily- 09/17/16 Subjective: Afebrile. more comfortable at present. did have another period of intense spasms early this morning around 2am. Wasn't able to get back to sleep until around 4am. Blood drawn aound 4;30am. Pt notes more drainage from drain site that is slightly blood tinged but mostly serous. Denies numbness/tingling down extremities. Less pain into right testicle today. working on taking deep breaths and using IS. no diarrhea. Objective: Vital Signs Temp Pulse Resp BP Pulse Ox 36.6 C 86 16 112/71 93 09/23/16 07:42 09/23/16 07:42 09/23/16 07:42 09/23/16 07:42 09/23/16 07:42 Microbiology 09/17/16 19:55 Blood Culture - Final Blood 09/17/16 19:55 Blood Culture - Final Blood 09/18/16 14:30 Gram Stain - Final Back - Aspirate Laboratory Results 09/23/16 04:30 09/23/16 04:30 09/22/16 09/23/16 09/24/16 05:59 05:59 05:59 Intake Total 1250 1000 Output Total 645 1060 Balance 605 -60 ESR 25 MM/HR (0-15) H 09/17/16 17:55 C-Reactive Protein 60.7 mg/L (<10.0) H 09/23/16 04:30 - Physical Exam General Appearance: alert, no apparent distress Respiratory: lungs clear Cardiac/Chest: regular rate, rhythm, No systolic murmur Extremities: other (no pain on palpation of thighs or right hip.), No swelling Abdomen: normal bowel sounds, non-tender, soft, No distended Back: other (drain ) Skin: No erythema ICD10 Worksheet Patient Problems: Problems Problem Status Onset Lumbar back pain Acute
[2016-09-23] MEDS: POLYETHYLENE GLYCOL 3350 17 GM PKT PO SCH (10:00)
[2016-09-23] MEDS: ENOXAPARIN 40 MG/0.4 ML SYR SC SCH (10:00)
[2016-09-23] MEDS: GABAPENTIN 100 MG CAP PO SCH ×2 (10:01→14:40)
[2016-09-23] MEDS: LIDOCAINE 5% 1 EA PATCH TD SCH ×3 (10:04→18:11)
[2016-09-23] MEDS: MICAFUNGIN NA 100 MG in NS 100 ML IV SCH (10:06)
--- NOTE | 2016-09-23 11:33 | NEUSURGPN ---
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 Some increased pain after PT but patient is feeling overall stable -Leave MARQUISE in for now -Will continue to monitor patient over the weekend -Plan for new MRI lumbar spine with/without tomorrow -If patients symptoms increase, will take to OR for another I&D with Dr Ellis -Please notify NS with any change in neuro/motor exam -Discussed with Dr. Ellis Subjective: Hip pain slightly increased after working with PT. Objective: NAD A&Ox3 MAEx4 5/ and equal in BUE and BLE. - Physician Discussed Patient with Dr.: Ellis Neurosurgery Physical Exam - Vitals, I&O, Labs I and O 09/22/16 09/23/16 09/24/16 05:59 05:59 05:59 Intake Total 1250 1000 Output Total 645 1060 Balance 605 -60 Intake: Oral (ml) 1250 1000 Output: Urine (ml) 600 675 Toilet 600 Urinal 675 MARQUISE Drain Output (ml) 45 385 Back 45 385 Other: Intake Quantity Yes Sufficient Number of Voids Toilet 1 Urinal 2 1 Number of Stools Urinal 2 Microbiology 09/17/16 19:55 Blood Culture - Final Blood 09/17/16 19:55 Blood Culture - Final Blood 09/18/16 14:30 Gram Stain - Final Back - Aspirate Vital Signs Temp Pulse Resp BP Pulse Ox 36.6 C 86 16 112/71 93 09/23/16 07:42 09/23/16 07:42 09/23/16 07:42 09/23/16 07:42 09/23/16 07:42 Laboratory Results 09/23/16 04:30 09/23/16 04:30 ICD10 Worksheet Patient Problems: Problems Problem Status Onset Lumbar back pain Acute - ICD10 Problem Qualifiers (1) Lumbar back pain Qualifiers: Chronicity: C Back pain laterality: B Sciatica presence: S Sciatica laterality: S
--- NOTE | 2016-09-23 12:57 | HOSPPROG ---
Hospitalist Progress Note Assessment/Plan: Patient is a 30-year-old male with a history of lumbar back pain who had a L4-5 microdiskectomy in June. Last week the pain became so bad he went to [place] and underwent a decompression and washout. He was discharged on Keflex. Cultures were obtained on 09/15/2016 which were positive for Aspergillus. At that time infections Disease prescribed for voriconazole. He presented to the emergency room with worsening back pain. Reviewed his care with Dr Morrison. This is my first encounter, chart reviewed. 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 on Micafungin 100mg daily #6/ Voriconazole dc on 09/19 (dual therapy is not needed) s/p drain placement in lumbar area 09/18 will likely need 8 weeks of abx repeat MRI on Saturday/ may need further debridement/ to get PICC line *right hip pain/possibly piriformis area/more gluteal/ radiculopathy type pain in addition MRI shows nothing acute suspect it is referred pain Lidoderm patch scheduled Tylenol, prn Robaxin, increased gabapentin dose *Leukocytosis due to the above, will follow *Acute on chronic back pain better today *constipation bowel protocol resolved *dvt prophylaxis: LMWH Subjective: Still having some spasm. No specific concerns. Objective: Vital Signs Temp Pulse Resp BP Pulse Ox 36.6 C 86 16 112/71 93 09/23/16 07:42 09/23/16 07:42 09/23/16 07:42 09/23/16 07:42 09/23/16 07:42 Microbiology 09/17/16 19:55 Blood Culture - Final Blood 09/17/16 19:55 Blood Culture - Final Blood 09/18/16 14:30 Gram Stain - Final Back - Aspirate Laboratory Results 09/23/16 04:30 09/23/16 04:30 09/22/16 09/23/16 09/24/16 05:59 05:59 05:59 Intake Total 1250 1000 Output Total 645 1060 Balance 605 -60 - Physical Exam Constitutional: no apparent distress, appears nourished, uncomfortable Eyes: PERRL, anicteric sclera, EOMI Ears, Nose, Mouth, Throat: moist mucous membranes, hearing normal, ears appear normal Cardiovascular: regular rate and rhythym, No JVD, No edema Respiratory: no respiratory distress, no rales or rhonchi, reduced air movement Gastrointestinal: normoactive bowel sounds, soft, non-tender abdomen, No ascites Skin: warm, normal color, No erythema Musculoskeletal: pain with ROM, muscular tenderness, generalized weakness Neurologic: AAOx3 Psychiatric: interacting appropriately, not anxious, not encephalopathic ICD10 Worksheet Patient Problems: Problems Problem Status Onset Lumbar back pain Acute
[2016-09-23] MEDS: HYDROmorphONE/DILAUDID 2 MG TAB PO PRN ×2 (18:38→20:01)
[2016-09-23] MEDS: ONDANSETRON 4 MG/2 ML VIAL IVP PRN (20:01)
[2016-09-23] MEDS ORDERED: DIAZEPAM 10 MG/2 ML SYR IVP ONE (20:45)
[2016-09-23] MEDS ORDERED: GADOBUTROL 10 ML VIAL IVP ONE (21:10)
[2016-09-23] MEDS ORDERED: THROMBIN (BOVINE) 5,000 UNIT VIAL TP ONE (21:19)
[2016-09-23] MEDS ORDERED: BUPIVACAINE 0.25% 30 ML SDV ONE (21:19)
[2016-09-23] MEDS ORDERED: BUPIVACAINE/EPI 0.25% 30 ML SDV ONE (21:20)
[2016-09-23] MEDS ORDERED: BACITRACIN 50,000 UNITS/10 ML SYR IRR ONE (21:20)
[2016-09-23] MEDS ORDERED: AVITENE POWDER 1 GM JAR TP ONE (21:21)
[2016-09-23] MEDS ORDERED: ceFAZolin 2 GM/DEXTROSE 100 ML IV ONE (21:46)
[2016-09-23] MEDS ORDERED: CEFAZOLIN 2 GM/DEXTROSE/100 ML BAG IV ONE (21:47)
[2016-09-23] MEDS ORDERED: fentaNYL 100 MCG/2 ML INJ ONE ×5 (21:49→23:21)
[2016-09-23] MEDS ORDERED: PROPOFOL/EMULSION 500 MG/50 ML BOTTLE IV ONE (21:51)
[2016-09-23] MEDS ORDERED: DIAZEPAM 2 MG TAB PO PRN (21:52)
--- NOTE | 2016-09-23 22:15 | PDANEPAE ---
ANE History of Present Illness here for lumbar I and D. new neuro changes, emergent case per surgery ANE Past Medical History - Cardiovascular History Hx Hypertension: No Hx Arrhythmias: No Hx Chest Pain: No Hx Coronary Artery / Peripheral Vascular Disease: No Hx Palpitations: No - Pulmonary History Hx COPD: No Hx Asthma/Reactive Airway Disease: Yes Hx Recent Upper Respiratory Infection: No Hx Oxygen in Use at Home: No Hx Sleep Apnea: No - Endocrine History Hx Diabetes: No Hypothyroid: No Hyperthyroid: No - Renal History Hx Renal Disorders: No - Neurological & Psychiatric Hx Hx Neurological and Psychiatric Disorders: No - Cancer History Hx Cancer: No - Congenital Disorder History Hx Congenital Disorders: No - GI History Hx Gastrointestinal Disorders: No - Surgical History Prior Surgeries: lumbar spine ANE Patient History - Allergies Allergies/Adverse Reactions: No Known Allergies Allergy (Verified 09/17/16 20:07) - Home Medications Home medications: home medication list seen and reviewed Home Medications: Baclofen [Baclofen 10 mg (*)] 10 mg PO Q8H PRN 09/17/16 [Last Taken Unknown] Cephalexin [Keflex (*)] 500 mg PO QID 09/17/16 [Last Taken 09/17/16 2 CAPS] Diazepam [Valium 5 MG (*)] 5 mg PO DAILY PRN 09/17/16 [Last Taken Unknown] Lactulose 5 - 10 ml PO Q6H 09/17/16 [Last Taken 09/17/16] Omeprazole 40 mg PO DAILY 09/17/16 [Last Taken 09/17/16] Voriconazole 200 mg PO BID 09/17/16 [Last Taken 09/17/16 1 TAB] oxyCODONE IR [Oxycodone Ir (*)] 5 - 10 mg PO Q4H PRN 09/17/16 [Last Taken Unknown] - NPO status NPO Since - Solids (Date): 09/23/16 NPO Since - Solids (Time): 04:00 - Anes Hx Anes Hx: no prior problems - Smoking Hx Smoking Status: Never smoked ANE Labs/Vital Signs - Labs Result Diagrams: 09/23/16 04:30 09/23/16 04:30 - Vital Signs Blood Pressure: 128/80 Heart Rate: 88 Respiratory Rate: 16 O2 Sat (%): 93 Height: 175.26 cm Weight: 86.183 kg ANE Physical Exam - Airway Neck exam: FROM Mallampati Score: Class 1 Mouth exam: normal dental/mouth exam - Cardiovascular Cardiovascular: regular rate and rhythym - ASA Status ASA Status: II, E ANE Anesthesia Plan Anesthesia Plan: general endotracheal anesthesia (RSI) Urgent/Emergent Case: Ifeoma barry completed preop but documented later for safe timely pt care
[2016-09-23] MEDS ORDERED: PROMETHAZINE HCL 25 MG/ML INJ IVP PRN (22:17)
[2016-09-23] MEDS ORDERED: NALOXONE HCL 0.4 MG/ML INJ IVP PRN (22:17)
[2016-09-23] MEDS ORDERED: VANCOMYCIN 1 GM VIAL ONE (22:19)
[2016-09-23] MEDS ORDERED: FLUCONAZOLE/NaCl 200 ML IV ONE (22:30)
--- NOTE | 2016-09-23 23:02 | POSTOPPROG ---
Post Op Note Date of Operation: 09/23/16 Surgeon: Oneil Roy Logistics Lead: SEAN Martin PAC Anesthesia: GET(General Endotracheal) Pre-op Diagnosis: Aspergillosis discitis, worsen low back pain, increase in purlence of drain Post-op Diagnosis: Aspergillosis discitis, worsen low back pain, increase in purlence of drain Indication: Aspergillosis discitis, worsen low back pain, increase in purlence of drain Procedure: Aspergillosis discitis, worsen low back pain, increase in purlence of drain Inf/Abcess present in the surg proc area at time of surgery?: Yes Depth: Deep Incisional (Fascial) EBL: 5cc Drains: Basilio CALABRESE Addendum - Addendum .: S: Resting comfortably O: NAD A&Ox3 MAEx4 A/P 30y/o male with L4/5 Aspergillosis discitis, worsen low back pain, increase in purlence of drain. now s/p lumbar spine washout -New MARQUISE drain to thumb print suction -Flat x3 days due to patulous appearance of the dura -Optimize pain management -Advance diet as tolerated -DVT prophx: Okay to resume evening of 09/24 -Please notify NS with any change in neuro/motor exam
--- NOTE | 2016-09-23 23:05 | POSTANESTH ---
Post Anesthetic Evaluation Cardiovascular Status: Normal, Stable Respiratory Status: Normal, Stable Level of Consciousness/Mental Status: Can Participate in Eval Pain Control: Adequate, Prn Tx Ordered Nausea/Vomiting Control: Adequate, Prn Tx Ordered Complications Possibly Related to Anesthesia: None Noted
[2016-09-23] MEDS ORDERED: HYDROmorphONE/DILAUDID 1 MG/ML SYR ONE (23:11)
[2016-09-23] MEDS: fentaNYL 100 MCG/2 ML INJ IVP PRN ×4 (23:12→23:39)
[2016-09-23] MEDS: HYDROmorphONE/DILAUDID 1 MG/ML SYR IVP PRN ×3 (23:13→23:35)
[2016-09-23] MEDS ORDERED: PROMETHAZINE HCL 25 MG/ML INJ ONE (23:57)
[2016-09-24] MEDS: ACETAMINOPHEN 500 MG TAB PO SCH ×4 (00:58→22:14)
[2016-09-24] MEDS: GABAPENTIN 100 MG CAP PO SCH ×4 (00:59→22:14)
[2016-09-24] MEDS: PATCH REMOVAL 1 EA PATCH TD SCH ×2 (01:03→22:18)
[2016-09-24] MEDS: SENNOSIDES/DOCUSATE SODIUM TAB PO SCH ×2 (01:03→22:15)
[2016-09-24] MEDS: DIAZEPAM 5 MG TAB PO PRN ×5 (01:48→22:15)
[2016-09-24] MEDS: HYDROmorphONE/DILAUDID 1 MG/ML SYR IVP PRN ×2 (01:49→04:26)
[2016-09-24] MEDS: HYDROmorphONE/DILAUDID 2 MG TAB PO PRN ×4 (01:49→22:13)
[2016-09-24] MEDS: traMADol 50 MG TAB PO PRN (06:16)
--- NOTE | 2016-09-24 08:07 | SOAPPROG ---
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 Plan: neuro: stable, leg pain improved today thin dura, keep HOB flat/bedrest for 3 days scd/abbey/lovenox for dvt prophylaxis aspergillosis infection, on micofungin per ID please call with neuro changes discussed with Dr Ellis 09/24/16 07:59 Subjective: continued incisional pain, no leg pain, right leg feels generally weak. no headaches. Objective: Vital Signs Temp Pulse Resp BP Pulse Ox 36.9 C 74 16 123/70 H 95 09/24/16 07:42 09/24/16 07:42 09/24/16 07:42 09/24/16 07:42 09/24/16 07:42 Microbiology 09/17/16 19:55 Blood Culture - Final Blood 09/17/16 19:55 Blood Culture - Final Blood Laboratory Results 09/23/16 04:30 09/23/16 04:30 09/23/16 09/24/16 09/25/16 05:59 05:59 05:59 Intake Total 1000 1160 Output Total 1060 1100 150 Balance -60 60 -150 AAOX4, +FC PERRL, EOMI, no facial droop 5/5 + light touch C/D/I ICD10 Worksheet Patient Problems: Problems Problem Status Onset Lumbar back pain Acute
[2016-09-24] MEDS: POLYETHYLENE GLYCOL 3350 17 GM PKT PO SCH (08:45)
[2016-09-24] MEDS: LIDOCAINE 5% 1 EA PATCH TD SCH (08:46)
[2016-09-24] MEDS: MICAFUNGIN NA 100 MG in NS 100 ML IV SCH (08:47)
--- NOTE | 2016-09-24 12:24 | HOSPPROG ---
Hospitalist Progress Note Assessment/Plan: Patient is a 30-year-old male with a history of lumbar back pain who had a L4-5 microdiskectomy in June. Last week the pain became so bad he went to [place] and underwent a decompression and washout. He was discharged on Keflex. Cultures were obtained on 09/15/2016 which were positive for Aspergillus. At that time infections Disease prescribed for voriconazole. He presented to the emergency room with worsening back pain. 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 #1 wash out on Micafungin 100mg daily #7/ Voriconazole dc on 09/19 (dual therapy is not needed) s/p drain placement in lumbar area 09/18 will likely need 8 weeks of abx *right hip pain/possibly piriformis area/more gluteal/ radiculopathy type pain in addition MRI shows nothing acute suspect it is referred pain Lidoderm patch scheduled Tylenol, prn Robaxin, increased gabapentin dose muscle twitching conts *Leukocytosis due to the above, will follow *Acute on chronic back pain better today *constipation bowel protocol resolved *dvt prophylaxis: LMWH lay flat for 3 days Subjective: Very tired today. Questions answered. Still having muscle spasm. Pain controlled. Objective: Vital Signs Temp Pulse Resp BP Pulse Ox 36.9 C 74 16 123/70 H 95 09/24/16 07:42 09/24/16 07:42 09/24/16 07:42 09/24/16 07:42 09/24/16 07:42 Microbiology 09/17/16 19:55 Blood Culture - Final Blood 09/17/16 19:55 Blood Culture - Final Blood Laboratory Results 09/23/16 04:30 09/23/16 04:30 09/23/16 09/24/16 09/25/16 05:59 05:59 05:59 Intake Total 1000 1160 Output Total 1060 1100 150 Balance -60 60 -150 - Physical Exam Constitutional: appears nourished, uncomfortable Eyes: PERRL, anicteric sclera Ears, Nose, Mouth, Throat: moist mucous membranes, hearing normal Cardiovascular: No JVD, No edema Respiratory: no respiratory distress, reduced air movement Gastrointestinal: No tenderness, No ascites Skin: warm, normal color Musculoskeletal: normal joint ROM, muscular tenderness, generalized weakness Neurologic: AAOx3, weakness Psychiatric: interacting appropriately, not anxious, not encephalopathic ICD10 Worksheet Patient Problems: Problems Problem Status Onset Lumbar back pain Acute
--- NOTE | 2016-09-24 16:04 | PCMIDPN ---
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 Patient is currently on monotherapy with micafungin. In general he feels better than a few days ago. Had his most recent debridement yesterday. Drain continues to collect serosanguineous fluid. Plan: 1. Continue micafungin. Suspect 8 week total course of treatment. 2. Follow output from MARQUISE drain. Follow neuro surgical plan for repeat debridement if needed. Subjective: Patient is resting in his hospital bed. In general his pain is close to 0 at baseline but the muscle spasms around the operative area are excruciating when they do occur. He has no fevers or chills. Tolerating micafungin without issue. Objective: Micafungin # 7 Vital Signs Temp Pulse Resp BP Pulse Ox 36.9 C 74 16 123/70 H 95 09/24/16 07:42 09/24/16 07:42 09/24/16 07:42 09/24/16 07:42 09/24/16 07:42 Laboratory Results 09/23/16 04:30 09/23/16 04:30 09/23/16 09/24/16 09/25/16 05:59 05:59 05:59 Intake Total 1000 1160 Output Total 1060 1100 150 Balance -60 60 -150 ESR 25 MM/HR (0-15) H 09/17/16 17:55 C-Reactive Protein 60.7 mg/L (<10.0) H 09/23/16 04:30 - Physical Exam General Appearance: WD/WN, alert, no apparent distress, non-toxic Respiratory: lungs clear, normal breath sounds, No respiratory distress Cardiac/Chest: regular rate, rhythm, No tachycardia Extremities: non-tender, normal inspection Back: spine tenderness, No normal inspection (MARQUISE drain from lower thoracic area. Serosanguineous fluid. Bulb not to suction per Neurosurgery.) Neuro/Psych: alert, normal mood/affect, oriented x 3 ICD10 Worksheet Patient Problems: Problems Problem Status Onset Lumbar back pain Acute
[2016-09-24 18:17] LABS: LYMPHOCYTES, ABSOLUTE 1700 /uL (850-3900)
[2016-09-24 18:18] LABS: ABSOLUTE CD4 521 /uL (490-1740); CD4/CD8 RATIO 1.8 RATIO (0.86-5.00)
[2016-09-24] MEDS ORDERED: ALBUTEROL 3 ML DEYVIAL IH PRN (20:10)
[2016-09-24] MEDS: METHOCARBAMOL 750 MG TAB PO PRN (22:15)
[2016-09-24] MEDS: ENOXAPARIN 40 MG/0.4 ML SYR SC SCH (22:35)
[2016-09-25] MEDS: HYDROmorphONE/DILAUDID 2 MG TAB PO PRN ×3 (02:02→19:57)
[2016-09-25] MEDS: DIAZEPAM 5 MG TAB PO PRN ×7 (02:02→23:36)
--- NOTE | 2016-09-25 08:56 | NEUSURGPN ---
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 Plan: neuro: stable, leg pain improved today with addition of gabapentin thin dura- was flat- may start to rais HOB by 10 degrees per hour starting at 0900. STOP and lay flat if develops headache scd/abbey/lovenox for dvt prophylaxis aspergillosis infection, on micofungin per ID please call with neuro changes discussed with Dr Ellis and seen by Dr. Ellis this morning as well S: Patient states that he is doing ok. Pain is well controlled on medications and right leg pain better today. Has mostly tight spasms in back near operative site. Denies fever, chills. Objective: NAD, VSS BLE 5/5= Sensation intact to lt touch Arvin X 1- no suction- minimal blood in bulb incision c/d/i - Physician Discussed Patient with Dr.: Ellis Patient Seen by Dr.: Ellis Neurosurgery Physical Exam - Vitals, I&O, Labs I and O 09/24/16 09/25/16 09/26/16 05:59 05:59 05:59 Intake Total 1160 450 Output Total 1100 1460 Balance 60 -1010 Weight 86.183 kg Intake: Oral (ml) 310 350 IV Intake (ml) 850 IV Infused (ml) 100 Micafungin Na 100 mg In 100 Ns 100 ml @ 100 mls/hr IV DAILY [facility] Rx#:[id number] Output: Urine (ml) 900 1450 Toilet 800 Urinal 100 1450 Estimated Blood Loss (ml) 10 Emesis (ml) 0 ARVIN Drain Output (ml) 190 10 Back 110 Back Basilio Quiñonez 80 10 Other: Intake Quantity Yes Yes Sufficient Output Comment Urinal in pre-op before surgery Number of Voids Toilet 1 Urinal 1 1 Microbiology 09/18/16 14:30 Gram Stain - Final Back - Aspirate 09/18/16 14:30 Mycobacterial Smear (LIZBET) - Final Back - Aspirate Vital Signs Temp Pulse Resp BP Pulse Ox 37.0 C 87 14 111/67 93 09/25/16 08:14 09/25/16 08:14 09/25/16 08:14 09/25/16 08:14 09/25/16 08:14 Laboratory Results 09/23/16 04:30 09/23/16 04:30 ICD10 Worksheet Patient Problems: Problems Problem Status Onset Lumbar back pain Acute <Eder Ellis - Last Filed: 09/25/16 09:23> Assessment/Plan: I met with the patient and his this morning. He denies any headaches and is having back spasms/pain at the incision site. Will try to raise his HOB slowly today and watch for any spinal headaches. If he tolerates being upright , then we can get his activity ad nai. Discussed clinical course with both and answered all questions. No surgical or imaging plans indicated at this time and will defer to ID and Medicine on course of treatment Appreciate their management in this very difficult case. Neurosurgery Physical Exam - Vitals, I&O, Labs I and O 09/24/16 09/25/16 09/26/16 05:59 05:59 05:59 Intake Total 1160 450 Output Total 1100 1460 Balance 60 -1010 Weight 86.183 kg Intake: Oral (ml) 310 350 IV Intake (ml) 850 IV Infused (ml) 100 Micafungin Na 100 mg In 100 Ns 100 ml @ 100 mls/hr IV DAILY [facility] Rx#:[id number] Output: Urine (ml) 900 1450 Toilet 800 Urinal 100 1450 Estimated Blood Loss (ml) 10 Emesis (ml) 0 ARVIN Drain Output (ml) 190 10 Back 110 Back Basilio Quiñonez 80 10 Other: Intake Quantity Yes Yes Sufficient Output Comment Urinal in pre-op before surgery Number of Voids Toilet 1 Urinal 1 1 Microbiology 09/18/16 14:30 Gram Stain - Final Back - Aspirate 09/18/16 14:30 Mycobacterial Smear (LIZBET) - Final Back - Aspirate Vital Signs Temp Pulse Resp BP Pulse Ox 37.0 C 87 14 111/67 93 09/25/16 08:14 09/25/16 08:14 09/25/16 08:14 09/25/16 08:14 09/25/16 08:14 Laboratory Results 09/23/16 04:30 09/23/16 04:30
[2016-09-25] MEDS: ACETAMINOPHEN 500 MG TAB PO SCH ×3 (09:13→22:07)
[2016-09-25] MEDS: METHOCARBAMOL 750 MG TAB PO PRN (09:13)
[2016-09-25] MEDS: POLYETHYLENE GLYCOL 3350 17 GM PKT PO SCH (09:14)
[2016-09-25] MEDS: LIDOCAINE 5% 1 EA PATCH TD SCH (09:14)
[2016-09-25] MEDS: GABAPENTIN 100 MG CAP PO SCH ×3 (09:14→22:07)
[2016-09-25] MEDS: ENOXAPARIN 40 MG/0.4 ML SYR SC SCH (09:14)
[2016-09-25] MEDS: MICAFUNGIN NA 100 MG in NS 100 ML IV SCH (09:23)
--- NOTE | 2016-09-25 10:37 | PCMIDPN ---
Assessment/Plan: Assessment/Plan: 1. Postoperative back infection with possible L4/5 diskitis/osteomyelitis secondary to Aspergillus: - Hx of micro diskectomy and bilateral hemilaminotomy on 07/10/2016. -On 09/12/2016 patient under went washout down to epidural space with redo L4-L5 laminectomy. - s/p drain placement on 09/18/16--- Cx with Aspergillus. initial positive cx from [facility] on 09/12/16 - Currently on Micafungin therapy. - s/p f/u mri on 09/23/16 noted with subsequent wash out also on 09/23/16. -pain management per primary team -Crp slightly trending down. - Aspergillus Ag negative. and CD4/8 noted -Recheck labs in Am to follow. - Reviewed plan of care with patient, . -Questions answered. Meds micafungin 100mg daily- 09/17/16 Subjective: Afebrile. Had more pain last night but is better today so far. Less radiating pain down right leg and into groin comparatively. Continue with pain around the back. Drain in place. Denies sob or diarrhea. Objective: Vital Signs Temp Pulse Resp BP Pulse Ox 37.0 C 87 14 111/67 93 09/25/16 08:14 09/25/16 08:14 09/25/16 08:14 09/25/16 08:14 09/25/16 08:14 Microbiology 09/18/16 14:30 Gram Stain - Final Back - Aspirate 09/18/16 14:30 Mycobacterial Smear (LIZBET) - Final Back - Aspirate Laboratory Results 09/23/16 04:30 09/23/16 04:30 09/24/16 09/25/16 09/26/16 05:59 05:59 05:59 Intake Total 1160 450 Output Total 1100 1460 Balance 60 -1010 ESR 25 MM/HR (0-15) H 09/17/16 17:55 C-Reactive Protein 60.7 mg/L (<10.0) H 09/23/16 04:30 - Physical Exam General Appearance: alert Respiratory: lungs clear Cardiac/Chest: regular rate, rhythm Extremities: No swelling Abdomen: normal bowel sounds, non-tender, soft, No distended Back: other (drain) Skin: No erythema - Time Spent With Patient Time Spent with Patient: greater than 35 minutes Time Spent with Patient: Greater than 35 minutes spent on this patients care, greater than 50% of time spent counseling, educating, and coordinating care regarding the above mentioned plan. ICD10 Worksheet Patient Problems: Problems Problem Status Onset Lumbar back pain Acute
--- NOTE | 2016-09-25 13:35 | HOSPPROG ---
Hospitalist Progress Note Assessment/Plan: Patient is a 30-year-old male with a history of lumbar back pain who had a L4-5 microdiskectomy in June. Last week the pain became so bad he went to [place] and underwent a decompression and washout. He was discharged on Keflex. Cultures were obtained on 09/15/2016 which were positive for Aspergillus. At that time infections Disease prescribed for voriconazole. He presented to the emergency room with worsening back pain. 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 #2 wash out on Micafungin 100mg daily #8/ Voriconazole dc on 09/19 (dual therapy is not needed) s/p drain placement in lumbar area 09/18 will likely need 8 weeks of abx *right hip pain/possibly piriformis area/more gluteal/ radiculopathy type pain in addition MRI shows nothing acute suspect it is referred pain Lidoderm patch scheduled Tylenol, prn Robaxin, increased gabapentin dose muscle twitching conts *Leukocytosis due to the above, will follow *Acute on chronic back pain better today *constipation bowel protocol resolved *dvt prophylaxis: LMWH lay flat for 3 days dural tear Subjective: Feeling tired today. Still some pain. No other concerns. Objective: Vital Signs Temp Pulse Resp BP Pulse Ox 37.0 C 87 14 111/67 93 09/25/16 08:14 09/25/16 08:14 09/25/16 08:14 09/25/16 08:14 09/25/16 08:14 Microbiology 09/18/16 14:30 Gram Stain - Final Back - Aspirate 09/18/16 14:30 Mycobacterial Smear (LIZBET) - Final Back - Aspirate Laboratory Results 09/23/16 04:30 09/23/16 04:30 09/24/16 09/25/16 09/26/16 05:59 05:59 05:59 Intake Total 1160 450 Output Total 1100 1460 Balance 60 -1010 - Physical Exam Constitutional: appears nourished, uncomfortable Eyes: PERRL, anicteric sclera Ears, Nose, Mouth, Throat: moist mucous membranes, hearing normal Cardiovascular: regular rate and rhythym, diastolic murmur, No JVD Respiratory: no respiratory distress, reduced air movement Gastrointestinal: normoactive bowel sounds, No ascites Skin: warm, normal color Musculoskeletal: no joint effusions, generalized weakness Neurologic: AAOx3, weakness Psychiatric: interacting appropriately, not anxious, not encephalopathic ICD10 Worksheet Patient Problems: Problems Problem Status Onset Lumbar back pain Acute
[2016-09-25] MEDS: traMADol 50 MG TAB PO PRN ×2 (15:58→23:36)
[2016-09-25] MEDS ORDERED: ALBUTEROL IH PRN (16:56)
[2016-09-25] MEDS ORDERED: MDI IH PRN (16:56)
[2016-09-25] MEDS: SENNOSIDES/DOCUSATE SODIUM TAB PO SCH (19:43)
[2016-09-25] MEDS: PATCH REMOVAL 1 EA PATCH TD SCH (19:44)
[2016-09-26] MEDS: HYDROmorphONE/DILAUDID 2 MG TAB PO PRN ×2 (02:41→14:16)
[2016-09-26 03:18] LABS: % IMMATURE GRANULYOCYTES 0.5 % (0.0-1.1); ABSOLUTE IMMATURE GRANULOCYTES 0.04 10^3/uL (0.00-0.10); ADD DIFF? NO; ADD MORPH? NO; ADD SCAN? NO; ATYPICAL LYMPHOCYTE FLAG 30 (0-99); FRAGMENT RBC FLAG 0 (0-99); HEMATOCRIT 38.5 % (40.0-51.0); HEMOGLOBIN 12.7 g/dL (13.7-17.5); LEFT SHIFT FLG 0 (0-99); LIPEMIA HEMOLYSIS FLAG 80 (0-99); MEAN CELL HEMOGLOBIN 28.9 pg (27.9-34.1); MEAN CELL VOLUME 87.5 fL (81.5-99.8); MEAN PLATELET VOLUME 9.3 fL (8.7-11.7); PLATELET CLUMPS FLAG 10 (0-99); PLATELET COUNT 355 10^3/uL (150-400); RED CELL DISTRIBUTION WIDTH 12.2 % (11.5-15.2)
[2016-09-26 03:40] LABS: ALANINE AMINOTRANSFERASE 113 IU/L (21-72); ALBUMIN 3.4 g/dL (3.5-5.0); ALKALINE PHOSPHATASE 111 IU/L (38-126); ANION GAP 10 mEq/L (8-16); ASPARTATE AMINOTRANSFERASE 66 IU/L (17-59); BILIRUBIN,TOTAL 0.8 mg/dL (0.1-1.4); CALCIUM 9.5 mg/dL (8.5-10.4); CARBON DIOXIDE 27 mEq/l (22-31); CHLORIDE 101 mEq/L (97-110); CREATININE 0.9 mg/dL (0.7-1.3); GLOMERULAR FILTRATION RATE > 60; GLUCOSE 100 mg/dL (70-100); POTASSIUM 4.7 mEq/L (3.5-5.2); SODIUM 138 mEq/L (134-144); TOTAL PROTEIN 6.5 g/dL (6.3-8.2)
[2016-09-26] MEDS: DIAZEPAM 5 MG TAB PO PRN ×2 (04:14→08:16)
[2016-09-26] MEDS: METHOCARBAMOL 750 MG TAB PO PRN (06:28)
[2016-09-26] MEDS: HYDROmorphONE/DILAUDID 1 MG/ML SYR IVP PRN (06:28)
[2016-09-26] MEDS ORDERED: oxyCODONE IR 5 MG TAB PO PRN (08:00)
[2016-09-26] MEDS: ACETAMINOPHEN 500 MG TAB PO SCH ×3 (08:15→21:52)
--- NOTE | 2016-09-26 08:15 | NEUSURGPN ---
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 Plan: neuro: stable, increased right lower back, right quad/ham/groin pain this am will add long acting oxycontin to help with pain control thin dura- was flat- may start to raise HOB by 10 degrees per hour to 50 degrees , then may get oob if tolerates with no headache hob raised to 17 degrees yesterday without headache but patient had increased low back pain with elevation scd/abbey/lovenox for dvt prophylaxis aspergillosis infection, on micofungin per ID please call with neuro changes discussed with Dr Ellis Subjective: patient complaining of increased right lower back spasm and right leg spasm Objective: NAD, VSS BLE 5/5= Sensation intact to lt touch Marquise X 1- no suction- minimal blood in bulb incision c/d/i Neuro Check Frequency: per routine Urinary Catheter in Place: No - Physician Discussed Patient with Dr.: Ellis Neurosurgery Physical Exam - Vitals, I&O, Labs I and O 09/25/16 09/26/16 09/27/16 05:59 05:59 05:59 Intake Total 450 1000 Output Total 1460 550 Balance -1010 450 Intake: Oral (ml) 350 1000 IV Infused (ml) 100 Micafungin Na 100 mg In 100 Ns 100 ml @ 100 mls/hr IV DAILY [facility] Rx#:[id number] Output: Urine (ml) 1450 550 Toilet 250 Urinal 1450 300 MARQUISE Drain Output (ml) 10 Back Basilio Quiñonez 10 Other: Intake Quantity Yes Yes Sufficient Number of Voids Urinal 1 1 Microbiology 09/18/16 14:30 Gram Stain - Final Back - Aspirate Vital Signs Temp Pulse Resp BP Pulse Ox 37.0 C 92 16 111/68 93 09/26/16 00:00 09/26/16 00:00 09/26/16 00:00 09/26/16 00:00 09/26/16 00:00 Laboratory Results 09/26/16 02:50 09/26/16 02:50 ICD10 Worksheet Patient Problems: Problems Problem Status Onset Lumbar back pain Acute
[2016-09-26] MEDS: GABAPENTIN 100 MG CAP PO SCH ×3 (08:16→21:53)
[2016-09-26] MEDS: ENOXAPARIN 40 MG/0.4 ML SYR SC SCH (08:18)
[2016-09-26] MEDS: MICAFUNGIN NA 100 MG in NS 100 ML IV SCH (08:21)
[2016-09-26] MEDS: POLYETHYLENE GLYCOL 3350 17 GM PKT PO SCH (08:22)
--- NOTE | 2016-09-26 08:31 | HOSPPROG ---
Hospitalist Progress Note Assessment/Plan: Patient is a 30-year-old male with a history of lumbar back pain who had a L4-5 microdiskectomy in June. Last week the pain became so bad he went to [place] and underwent a decompression and washout. He was discharged on Keflex. Cultures were obtained on 09/15/2016 which were positive for Aspergillus. At that time infections Disease prescribed for voriconazole. He presented to the emergency room with worsening back pain. 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 #2 on Micafungin 100mg daily #9/ Voriconazole dc on 09/19 (dual therapy is not needed) s/p drain placement in lumbar area 09/18 will likely need 8 weeks of abx *poss dural tear hob up slowly, no headaches neurosurgery having nursing advance HOB up slowly *right hip pain/possibly piriformis area/more gluteal/ radiculopathy type pain w associated spasms MRI shows nothing acute suspect it is referred pain Lidoderm patch scheduled Tylenol, scheduled Robaxin, Gabapentin, and added iv Valium for spasms muscle twitching conts *Leukocytosis due to the above, will follow *Acute on chronic back pain *constipation bowel protocol resolved *dvt prophylaxis: LMWH *Plan: Increased Valium IV and scheduled Robaxin Subjective: Bob is c/o spasms at right hip area. Pain is well managed. Objective: Vital Signs Temp Pulse Resp BP Pulse Ox 37.0 C 92 16 111/68 93 09/26/16 00:00 09/26/16 00:00 09/26/16 00:00 09/26/16 00:00 09/26/16 00:00 Microbiology 09/18/16 14:30 Gram Stain - Final Back - Aspirate Laboratory Results 09/26/16 02:50 09/26/16 02:50 09/25/16 09/26/16 09/27/16 05:59 05:59 05:59 Intake Total 450 1000 Output Total 1460 550 Balance -1010 450 - Physical Exam Constitutional: uncomfortable Eyes: PERRL, other (glasses) Ears, Nose, Mouth, Throat: hearing normal Cardiovascular: regular rate and rhythym Respiratory: no respiratory distress Gastrointestinal: normoactive bowel sounds, distension (slight) Skin: warm Musculoskeletal: muscular tenderness, generalized weakness Neurologic: AAOx3 Psychiatric: interacting appropriately ICD10 Worksheet Patient Problems: Problems Problem Status Onset Lumbar back pain Acute
[2016-09-26] MEDS: LIDOCAINE 5% 1 EA PATCH TD SCH (09:42)
[2016-09-26] MEDS ORDERED: DIAZEPAM 10 MG/2 ML SYR IVP PRN (10:21)
[2016-09-26] MEDS: DIAZEPAM 10 MG/2 ML SYR IVP PRN ×2 (13:48→14:17)
--- NOTE | 2016-09-26 14:45 | PCMIDPN ---
Assessment/Plan: # Aspergillus wound infection and possible L4-L5 osteomyelitis/diskitis following micro diskectomy and bilateral hemilaminotomy on 07/10/2016. No evidence of pulmonary Aspergillus or immune dysfunction. CD4 on lower side of normal likely due to infection. Washout 09/12/2016 & 09/23/16. Last MRI showed improvement but had R leg symptoms . WBC normal today. --report with intra-op findings not available --no cx from OR, will collect cx from MARQUISE bulb --continue micafungin --sensi's on aspergillus ordered today # Elevated LFTs --micafungin elevates LFTs at rate 5% --re-check LFTs medications Micafungin 100 mg IV daily, #9 Care was coordinated with Dr Ellis Subjective: back spasms severe today still with R leg Objective: Vital Signs Temp Pulse Resp BP Pulse Ox 37.3 C 88 16 125/74 H 95 09/26/16 08:34 09/26/16 08:34 09/26/16 08:34 09/26/16 08:34 09/26/16 08:34 Microbiology 09/18/16 14:30 Gram Stain - Final Back - Aspirate 09/18/16 14:30 Mycobacterial Smear (LIZBET) - Final Back - Aspirate Laboratory Results 09/26/16 02:50 09/26/16 02:50 09/25/16 09/26/16 09/27/16 05:59 05:59 05:59 Intake Total 450 1000 Output Total 1460 550 375 Balance -1010 450 -375 ESR 25 MM/HR (0-15) H 09/17/16 17:55 C-Reactive Protein 60.7 mg/L (<10.0) H 09/23/16 04:30 - Physical Exam General Appearance: alert, no apparent distress EENT: No scleral icterus Respiratory: No accessory muscle use Neck: supple Back: other (MARQUISE drain with blood ) Neuro/Psych: other (sleepy s/p valium but answers questions appropriately) - Line/s RUE PICC Lines: No drainage, No erythema - Time Spent With Patient Time Spent with Patient: greater than 25 minutes Time Spent with Patient: Greater than 25 minutes spent on this patients care, greater than 50% of time spent counseling, educating, and coordinating care regarding the above mentioned plan. ICD10 Worksheet Patient Problems: Problems Problem Status Onset Lumbar back pain Acute
[2016-09-26] MEDS: METHOCARBAMOL 750 MG TAB PO SCH ×2 (16:18→21:52)
[2016-09-26] MEDS: SENNOSIDES/DOCUSATE SODIUM TAB PO SCH (21:53)
[2016-09-27] MEDS: HYDROmorphONE/DILAUDID 2 MG TAB PO PRN ×2 (03:18→12:23)
[2016-09-27 04:18] LABS: ALBUMIN 3.5 g/dL (3.5-5.0); BILIRUBIN,TOTAL 0.7 mg/dL (0.1-1.4); BILIRUBIN-CONJUGATED 0.5 mg/dL (0.0-0.5); BILIRUBIN-UNCONJUGATED 0.2 mg/dL (0.0-1.1); TOTAL PROTEIN 6.4 g/dL (6.3-8.2)
[2016-09-27] MEDS: DIAZEPAM 10 MG/2 ML SYR IVP PRN ×3 (04:51→22:21)
--- NOTE | 2016-09-27 08:17 | NEUSURGPN ---
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 Plan: neuro: stable, right flank "spasm", right leg pain improved patient sat at edge of bed yesterday without headache, fit with lumbar brace encourage ambulation with PT/OT today scd/abbey/lovenox for dvt prophylaxis aspergillosis infection, on micofungin per ID please call with neuro changes discussed with Dr Ellis Subjective: patient complains of right flank spasm, feels pain has improved with starting oxycontin yesterday Objective: NAD, VSS BLE 5/5= Sensation intact to lt touch Arvin X 1- no suction- minimal blood in bulb incision c/d/i Neuro Check Frequency: per routine Urinary Catheter in Place: No - Physician Discussed Patient with Dr.: Ellis Neurosurgery Physical Exam - Vitals, I&O, Labs I and O 09/26/16 09/27/16 09/28/16 05:59 05:59 05:59 Intake Total 1000 2100 Output Total 550 2285 175 Balance 450 -185 -175 Intake: Oral (ml) 1000 2000 IV Infused (ml) 100 Micafungin Na 100 mg In 100 Ns 100 ml @ 100 mls/hr IV DAILY [facility] Rx#:[id number] Output: Urine (ml) 550 2275 175 Toilet 250 Urinal 300 2275 175 ARVIN Drain Output (ml) 10 Back Basilio Quiñonez 10 Other: Intake Quantity Yes Yes Sufficient Number of Voids Urinal 1 1 Microbiology 09/26/16 16:35 Gram Stain - Final Back - Aspirate 09/18/16 14:30 Gram Stain - Final Back - Aspirate 09/18/16 14:30 Mycobacterial Smear (LIZBET) - Final Back - Aspirate Vital Signs Temp Pulse Resp BP Pulse Ox 37.1 C 80 16 119/80 90 L 09/27/16 07:30 09/27/16 07:30 09/27/16 07:30 09/27/16 07:30 09/27/16 07:30 Laboratory Results 09/26/16 02:50 09/26/16 02:50 ICD10 Worksheet Patient Problems: Problems Problem Status Onset Lumbar back pain Acute
[2016-09-27] MEDS: ACETAMINOPHEN 500 MG TAB PO SCH ×3 (09:18→21:09)
[2016-09-27] MEDS: METHOCARBAMOL 750 MG TAB PO SCH ×3 (09:19→21:11)
[2016-09-27] MEDS: GABAPENTIN 100 MG CAP PO SCH ×3 (09:19→21:11)
[2016-09-27] MEDS: MICAFUNGIN NA 100 MG in NS 100 ML IV SCH (09:20)
[2016-09-27] MEDS: POLYETHYLENE GLYCOL 3350 17 GM PKT PO SCH (09:21)
--- NOTE | 2016-09-27 10:14 | HOSPPROG ---
Hospitalist Progress Note Assessment/Plan: Patient is a 30-year-old male with a history of lumbar back pain who had a L4-5 microdiskectomy in June. Last week the pain became so bad he went to [place] and underwent a decompression and washout. He was discharged on Keflex. Cultures were obtained on 09/15/2016 which were positive for Aspergillus. At that time infections Disease prescribed for voriconazole. He presented to the emergency room with worsening back pain. 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 #2 on Micafungin 100mg daily #10/ Voriconazole dc on 09/19 (dual therapy is not needed) s/p drain placement in lumbar area 09/18 will likely need 8 weeks of abx *poss dural tear tolerating sitting up *right hip pain/possibly piriformis area/more gluteal/ radiculopathy type pain w associated spasms MRI shows nothing acute suspect it is referred pain Lidoderm patch dc /patient said it didn't help at all scheduled Tylenol, scheduled Robaxin, Gabapentin, and added iv Valium for spasms muscle twitching better *Leukocytosis due to the above, will follow *Acute on chronic back pain *constipation bowel protocol resolved *dvt prophylaxis: LMWH *Plan:explained to BOB he needs to get oob tid for all of his meals/ concerned he is getting too weak being in bed. Subjective: Bob is very anxious about getting OOB/ says spasms are better. Objective: Vital Signs Temp Pulse Resp BP Pulse Ox 37.1 C 80 16 119/80 90 L 09/27/16 07:30 09/27/16 07:30 09/27/16 07:30 09/27/16 07:30 09/27/16 07:30 Microbiology 09/18/16 14:30 Gram Stain - Final Back - Aspirate 09/26/16 16:35 Gram Stain - Final Back - Aspirate 09/18/16 14:30 Mycobacterial Smear (LIZBET) - Final Back - Aspirate Laboratory Results 09/26/16 02:50 09/26/16 02:50 09/26/16 09/27/16 09/28/16 05:59 05:59 05:59 Intake Total 1000 2100 Output Total 550 2285 175 Balance 450 -185 -175 - Physical Exam Constitutional: uncomfortable Eyes: PERRL Ears, Nose, Mouth, Throat: hearing normal Cardiovascular: regular rate and rhythym Respiratory: no respiratory distress Gastrointestinal: normoactive bowel sounds Skin: warm Musculoskeletal: muscular tenderness, generalized weakness Neurologic: AAOx3 Psychiatric: depressed ICD10 Worksheet Patient Problems: Problems Problem Status Onset Lumbar back pain Acute
[2016-09-27] MEDS: ENOXAPARIN 40 MG/0.4 ML SYR SC SCH (11:00)
--- NOTE | 2016-09-27 17:48 | PCMIDPN ---
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 Patient is currently on monotherapy with micafungin. continues to generally improve. sensitivities to antifungals sent to microbiology. Plan: 1. Continue micafungin. Suspect 8 week total course of treatment. 2. Follow output from MARQUISE drain. Follow neuro surgical plan for repeat debridement if needed. 09/27/16 19:02 Subjective: Patient is resting in his hospital bed trying to start PT therapy today. No fevers or chills. States that his pain is much better today than it has been the last couple of days. Objective: Micafungin # 10 Vital Signs Temp Pulse Resp BP Pulse Ox 37.0 C 96 16 131/79 H 94 09/27/16 16:00 09/27/16 16:00 09/27/16 16:00 09/27/16 16:00 09/27/16 16:00 Microbiology 09/26/16 16:35 Gram Stain - Final Back - Aspirate 09/18/16 14:30 Gram Stain - Final Back - Aspirate 09/18/16 14:30 Mycobacterial Smear (LIZBET) - Final Back - Aspirate Laboratory Results 09/26/16 02:50 09/26/16 02:50 09/26/16 09/27/16 09/28/16 05:59 05:59 05:59 Intake Total 1000 2100 1600 Output Total 550 2285 1525 Balance 450 -185 75 ESR 25 MM/HR (0-15) H 09/17/16 17:55 C-Reactive Protein 60.7 mg/L (<10.0) H 09/23/16 04:30 - Physical Exam General Appearance: WD/WN, alert, no apparent distress, non-toxic Respiratory: lungs clear, normal breath sounds, No respiratory distress Cardiac/Chest: regular rate, rhythm, No tachycardia Skin: normal color, warm/dry, No rash Neuro/Psych: alert, normal mood/affect, oriented x 3 ICD10 Worksheet Patient Problems: Problems Problem Status Onset Lumbar back pain Acute
--- NOTE | 2016-09-27 20:55 | GOP ---
[f rep st] OPERATIVE REPORT DATE OF OPERATION: 09/23/2016 SURGEON: Oneil Roy MD CUFF TURNER: Pablo Bateman PA-C ANESTHESIA: GETA. 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 PROCEDURE PERFORMED: Complex lumbar wound washout for A fungal infection. FINDINGS: Transparent and very thinned dura mater of the lumbar thecal sac with concerns for occult spinal fluid leak. SPECIMENS: None. ESTIMATED BLOOD LOSS: 50 cc. DESCRIPTION OF PROCEDURE: The patient was brought into the operating room and sign-in was performed. He was induced under general anesthesia and intubated without difficulty. Appropriate IV access was obtained. SCDs were placed to prevent DVT. Gram-positive antibiotic prophylaxis was administered IV. The patient was turned from the supine to prone position on an open Basilio table, and pressure points were padded. His lower back was washed with chlorhexidine shampoo and alcohol and then was allowed to dry. The wound was well healed. His pigtail drainage catheter was removed. ChloraPrep was used to sterilize the skin, and this was allowed to dry. A sterile field was created with blue towels, Ioban, and a sterile surgical drape. Prior to beginning the procedure, a time-in was performed where all members of surgery, anesthesia, and nursing went over the necessary check list items and agreed to proceed as one. 10 cc of 0.25% Marcaine with 1:200,000 parts of epinephrine was injected along both sides of the incision for hemostatic purposes. A #10 scalpel was used to incise the old incision and fascial layer. Muscle was opened by using Metzenbaum scissors and pickups to cut out all the old Vicryl sutures which were discarded. Once the incision was opened, placed a retractor and began gentle debridement and washout with antifungal irrigation, specifically normal saline with fluconazole mixture. We took a look at the dura as we were wanting to retract the dura so we could take a look at the L4-5 interspace and see if we could wash out some of that disk space with the antifungal-impregnated irrigation; however, the dura was paper thin, essentially completely transparent and looked almost like just a veil of arachnoid mater. The appearance was quite concerning, and I was quite worried that if we manipulated the dura too much we would create a durotomy and a CSF leak. I was not sure if there was already actually a small durotomy and CSF egress. I could not pinpoint a durotomy; however, the tissues were quite liquidy, and it was hard to tell if it was just venous/arterial oozing and serous fluid exuding from the tissues or if, in fact, there was a small amount of spinal fluid leak. Regardless, we decided not to manipulate the dura to prevent a larger durotomy should there already be a small one. We completed our debridement and irrigation, placed a #10 MARQUISE drain in the space, and tunneled it out the skin. It was hooked up to a drainage catheter to thumbprint suction only. The muscle and fascia were closed with 0 Vicryl suture in an interrupted fashion. The suprafascial compartment was irrigated once more. The dermis was closed with interrupted inverted 2-0 Vicryl suture. The skin approximated well. We ran 3- 0 nylon to close it. The skin was cleaned with a wet and dry sponge, and a sterile dressing was placed. Sterile drapes were removed, and the patient was returned from his prone supine position on a gurney, reversed from anesthesia, and extubated. All counts were correct, and there were no immediate surgical or anesthetic complications. Patient was taken to the recovery area and was found to be in stable medical and neurologic condition, with orders for flat bed rest overnight, and no more than thumbprint suction to his MARQUISE. I called his and gave her the updates. She was appreciative of the call. I also discussed the case before and after with my partner, Dr. Ellis. He was in favor of a washout, and since I was the on-call physician, ultimately it was my responsibility. He was appreciative of the team effort. IMPLANTS: None. COMPLICATIONS: None. INDICATIONS FOR PROCEDURE: The patient is a very unfortunate 30-year-old male, who was primarily under the care of my partner, Dr. Eder Ellis. He had diskectomy some months ago at L4-5 for radiculopathy and re-presented recently with worsening of his back and leg pain. Was found to have a ventral epidural fluid collection and an MRI concerning for diskitis osteomyelitis, as well as elevated inflammatory markers, and was taken back by my partner, Dr. Ellis several days at [facility]. He was found to have an L4-5 fungal diskitis with cultures consistent with aspergillosis. He was discharged and then readmitted to [facility] for an additional fluid collection. Drain was placed by IR. The infectious disease team has been following along. He has been on antifungal medication, and it is our understanding that this is a tenacious organism and often needs multiple washouts. The plan has been to repeat his imaging and return to the operating room for a washout should he have any change in his neurologic status or his neurologic exam. Earlier this evening he began complaining of 7/10 pain, whereas for the past several days pain has been quite well controlled at 2/10. An MRI was done, which showed some improvement, but the quality of his drainage output was particulate and quite concerning appearing; so we decided to take him back to surgery for a quick wound washout. /[id number]/MODL MTDD
[2016-09-27] MEDS: morphINE SR 15 MG TAB PO SCH (21:11)
[2016-09-27] MEDS: SENNOSIDES/DOCUSATE SODIUM TAB PO SCH (21:12)
[2016-09-28] MEDS: HYDROmorphONE/DILAUDID 2 MG TAB PO PRN ×2 (04:52→14:22)
--- NOTE | 2016-09-28 07:14 | NEUSURGPN ---
Date of Surgery: 09/23/16 Post Op Day: 5 Assessment/Plan: Assessment: 30 yo M POD #5 washout of L4/5 aspergillosis infection after previous L4/5 microdiscectomy. Plan: neuro: stable, right flank "spasm", right leg pain improved patient fit with brace, still not ambulating much due to back spasm encourage ambulation with PT/OT today scd/abbey/lovenox for dvt prophylaxis aspergillosis infection, on micofungin per ID please call with neuro changes will try to wean off long acting narcotics to help with ambulation and getting out of bed may try heat pack on right side for spasm ok for massage if available per Dr Ellis remove dressing 09/28/[address] Ellis Subjective: patient still having back spasms Objective: NAD, VSS BLE 5/5= Sensation intact to lt touch Arvin X 1- no suction- minimal blood in bulb incision c/d/i Neuro Check Frequency: per routine Urinary Catheter in Place: No - Physician Discussed Patient with Dr.: Ellis Neurosurgery Physical Exam - Vitals, I&O, Labs I and O 09/27/16 09/28/16 09/29/16 05:59 05:59 05:59 Intake Total 2100 1600 Output Total 2285 2175 Balance -185 -575 Intake: Oral (ml) 2000 1500 IV Infused (ml) 100 100 Micafungin Na 100 mg In 100 100 Ns 100 ml @ 100 mls/hr IV DAILY [facility] Rx#:[id number] Output: Urine (ml) 2275 2175 Toilet 300 Urinal 2275 1875 ARVIN Drain Output (ml) 10 Back Basilio Quiñonez 10 Other: Intake Quantity Yes Yes Sufficient Number of Voids Toilet 1 Urinal 1 2 Microbiology 09/18/16 14:30 Gram Stain - Final Back - Aspirate 09/26/16 16:35 Gram Stain - Final Back - Aspirate 09/18/16 14:30 Mycobacterial Smear (LIZBET) - Final Back - Aspirate Vital Signs Temp Pulse Resp BP Pulse Ox 37.5 C 91 16 120/78 94 09/27/16 23:25 09/27/16 23:25 09/27/16 23:25 09/27/16 23:25 09/27/16 23:25 Laboratory Results 09/26/16 02:50 09/26/16 02:50 ICD10 Worksheet Patient Problems: Problems Problem Status Onset Lumbar back pain Acute
[2016-09-28] MEDS: METHOCARBAMOL 750 MG TAB PO SCH ×3 (08:08→22:08)
[2016-09-28] MEDS: ACETAMINOPHEN 500 MG TAB PO SCH ×3 (08:08→22:06)
[2016-09-28] MEDS: GABAPENTIN 100 MG CAP PO SCH (08:08)
[2016-09-28] MEDS: morphINE SR 15 MG TAB PO SCH ×2 (08:08→22:08)
[2016-09-28] MEDS: ENOXAPARIN 40 MG/0.4 ML SYR SC SCH (08:09)
[2016-09-28] MEDS: POLYETHYLENE GLYCOL 3350 17 GM PKT PO SCH (08:09)
[2016-09-28] MEDS ORDERED: DIAZEPAM 5 MG TAB PO PRN (08:10)
[2016-09-28] MEDS ORDERED: HYDROmorphONE/DILAUDID 2 MG TAB PO PRN (08:11)
[2016-09-28] MEDS: MICAFUNGIN NA 100 MG in NS 100 ML IV SCH (09:26)
[2016-09-28] MEDS ORDERED: GABAPENTIN 100 MG CAP PO SCH (09:37)
--- NOTE | 2016-09-28 09:45 | HOSPPROG ---
Hospitalist Progress Note Assessment/Plan: Patient is a 30-year-old male with a history of lumbar back pain who had a L4-5 microdiskectomy in June. Last week the pain became so bad he went to [place] and underwent a decompression and washout. He was discharged on Keflex. Cultures were obtained on 09/15/2016 which were positive for Aspergillus. At that time infections Disease prescribed for voriconazole. He presented to the emergency room with worsening back pain. 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 #2 on Micafungin 100mg daily #11/ Voriconazole dc on 09/19 (dual therapy is not needed) s/p drain placement in lumbar area 09/18 will likely need 8 weeks of abx *poss dural tear tolerating sitting up *right hip pain/possibly piriformis area/more gluteal/ radiculopathy type pain w associated spasms MRI shows nothing acute suspect it is referred pain scheduled Tylenol, scheduled Robaxin, Gabapentin increased to 300 mg tid cutting back on oral Dilaudid/ long acting morphine has been added by neurosurgical team *Leukocytosis due to the above, will follow *Acute on chronic back pain *constipation bowel protocol resolved *dvt prophylaxis: LMWH *Plan: cont to need to get OOB minimal 3 x day/ Bob agrees that he gets very anxious about having pain and wants to be pre-medicated when getting oob/ this will be continued. He is agreeable to getting up and trying to cut back slowly on the narcotics. Spoke with Dr Kinsey to look at his MARQUISE drain output/ looks possibly more purulent. Subjective: Bob is not having any pain or spasms Objective: Vital Signs Temp Pulse Resp BP Pulse Ox 37.2 C 77 16 125/76 H 92 09/28/16 07:49 09/28/16 07:49 09/27/16 23:25 09/28/16 07:49 09/28/16 07:49 Microbiology 09/18/16 14:30 Gram Stain - Final Back - Aspirate 09/26/16 16:35 Gram Stain - Final Back - Aspirate 09/18/16 14:30 Mycobacterial Smear (LIZBET) - Final Back - Aspirate Laboratory Results 09/26/16 02:50 09/26/16 02:50 09/27/16 09/28/16 09/29/16 05:59 05:59 05:59 Intake Total 2100 1600 Output Total 3926 2802 Balance -185 -557 - Physical Exam Constitutional: no apparent distress, appears nourished Eyes: PERRL, other (glasses) Ears, Nose, Mouth, Throat: hearing normal Respiratory: no respiratory distress Skin: warm, other (drain with some bloody, brown colored drainage) Musculoskeletal: generalized weakness Neurologic: AAOx3 Psychiatric: interacting appropriately ICD10 Worksheet Patient Problems: Problems Problem Status Onset Lumbar back pain Acute
[2016-09-28] MEDS: BACLOFEN 10 MG TAB PO PRN (12:41)
[2016-09-28] MEDS: GABAPENTIN 300 MG CAP PO SCH ×3 (12:41→22:07)
[2016-09-28] MEDS: DIAZEPAM 5 MG TAB PO PRN (12:41)
--- NOTE | 2016-09-28 15:47 | PCMIDPN ---
Assessment/Plan: # Aspergillus wound infection and possible L4-L5 osteomyelitis/diskitis following micro diskectomy and bilateral hemilaminotomy on 07/10/2016 - NOT due to pulmonary infection or immune dysfunction. Washout 09/12/2016 & 09/23/16. Still will significant back spasm. MARQUISE drainage a bit more cloudy today, but primarily is bloody. --no cx sent from washout 09/23 so sent cx from MARQUISE 09/26. Did not want standard bacterial cx, so results should be ignored. Only meaningful results will be if cx grows aspergillus -- aspergillus sent for sensi's --1 colony of enterococcus not likely pertinent --monitor MARQUISE output # Elevated LFTs: better yesterday medications Micafungin 100 mg IV daily, #11 microbiology 09/18 IR drain: aspergillus and 1 colony enterococcus 09/26 Fungal Cx from MARQUISE drain Subjective: severe back spasms after worked with PT; R hip and R leg pain Objective: Vital Signs Temp Pulse Resp BP Pulse Ox 37.2 C 77 16 125/76 H 92 09/28/16 07:49 09/28/16 07:49 09/27/16 23:25 09/28/16 07:49 09/28/16 07:49 Microbiology 09/18/16 14:30 Gram Stain - Final Back - Aspirate 09/26/16 16:35 Gram Stain - Final Back - Aspirate 09/18/16 14:30 Mycobacterial Smear (LIZBET) - Final Back - Aspirate Laboratory Results 09/26/16 02:50 09/26/16 02:50 09/27/16 09/28/16 09/29/16 05:59 05:59 05:59 Intake Total 2100 1600 Output Total 2285 2485 Balance -185 -885 ESR 25 MM/HR (0-15) H 09/17/16 17:55 C-Reactive Protein 60.7 mg/L (<10.0) H 09/23/16 04:30 - Physical Exam General Appearance: apparent distress (secondary to pain) Respiratory: No accessory muscle use Extremities: No pedal edema Male Genitalia: No morales Back: other (MARQUISE drain with bloody, slightly cloudy output, 10cc/day) Skin: No rash Neuro/Psych: no motor/sensory deficits, alert, oriented x 3 - Line/s RUE PICC Lines: No drainage, No erythema ICD10 Worksheet Patient Problems: Problems Problem Status Onset Lumbar back pain Acute
[2016-09-28] MEDS: SENNOSIDES/DOCUSATE SODIUM TAB PO SCH (22:08)
[2016-09-29] MEDS: POLYETHYLENE GLYCOL 3350 17 GM PKT PO SCH (08:55)
[2016-09-29] MEDS: ENOXAPARIN 40 MG/0.4 ML SYR SC SCH (08:55)
[2016-09-29] MEDS: GABAPENTIN 300 MG CAP PO SCH ×3 (08:56→21:17)
[2016-09-29] MEDS: morphINE SR 15 MG TAB PO SCH ×2 (08:56→21:18)
[2016-09-29] MEDS: ACETAMINOPHEN 500 MG TAB PO SCH ×4 (08:56→21:16)
[2016-09-29] MEDS: METHOCARBAMOL 750 MG TAB PO SCH ×3 (08:56→21:18)
--- NOTE | 2016-09-29 09:13 | HOSPPROG ---
Hospitalist Progress Note Assessment/Plan: Patient is a 30-year-old male with a history of lumbar back pain who had a L4-5 microdiskectomy in June. Last week the pain became so bad he went to [place] and underwent a decompression and washout. He was discharged on Keflex. Cultures were obtained on 09/15/2016 which were positive for Aspergillus. At that time infections Disease prescribed for voriconazole. He presented to the emergency room with worsening back pain. 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 #2 on Micafungin 100mg daily #12/ Voriconazole dc on 09/19 (dual therapy is not needed) s/p drain placement in lumbar area 09/18 will likely need 8 weeks of abx *poss dural tear resolved *right hip pain/possibly piriformis area/more gluteal/ radiculopathy type pain w associated spasms MRI shows nothing acute suspect it is referred pain scheduled Tylenol, scheduled Robaxin, Gabapentin increased to 300 mg tid cutting back on oral Dilaudid/ long acting morphine has been added by neurosurgical team has no pain this morning the integrative team helped his pain significantly/appreciate their involvement *Leukocytosis resolved *Acute on chronic back pain see the above interventions *constipation bowel protocol resolved *dvt prophylaxis: LMWH *Plan:oob tid, Bob and I had a good discussion about the importance of getting oob/ he slept well. Will start weaning off Valium. Subjective: Bob has no c/o pain, slept all night/ realizes he is getting mentally down which is affecting him. Objective: Vital Signs Temp Pulse Resp BP Pulse Ox 36.9 C 93 16 127/82 H 91 L 09/28/16 22:56 09/28/16 22:56 09/28/16 22:56 09/28/16 22:56 09/28/16 22:56 Microbiology 09/26/16 16:35 Gram Stain - Final Back - Aspirate 09/18/16 14:30 Gram Stain - Final Back - Aspirate Laboratory Results 09/26/16 02:50 09/26/16 02:50 09/28/16 09/29/16 09/30/16 05:59 05:59 05:59 Intake Total 1600 400 Output Total 2485 1315 250 Balance -885 -915 -250 - Physical Exam Constitutional: no apparent distress, appears nourished, not in pain Eyes: PERRL Ears, Nose, Mouth, Throat: hearing normal Respiratory: no respiratory distress Skin: warm, other (drain with cloudy, min bloody drainage) Musculoskeletal: generalized weakness Neurologic: AAOx3 Psychiatric: interacting appropriately, depressed ICD10 Worksheet Patient Problems: Problems Problem Status Onset Lumbar back pain Acute
[2016-09-29] MEDS: MICAFUNGIN NA 100 MG in NS 100 ML IV SCH (11:00)
--- NOTE | 2016-09-29 11:41 | NEUSURGPN ---
Assessment/Plan: Assessment: 30 yo M POD #6 washout of L4/5 aspergillosis infection after previous L4/5 microdiscectomy. Plan: neuro: stable, right flank "spasm", right leg pain improved patient fit with brace, still not ambulating much due to back spasm but did get up more yesterday. Mostly has concerns about first getting up from lying down then better with walking encourage ambulation with PT/OT today scd/abbey/lovenox for dvt prophylaxis aspergillosis infection, on micofungin per ID please call with neuro changes will try to wean off long acting narcotics to help with ambulation and getting out of bed may try heat pack on right side for spasm Leave Arvin until bone dry discussed with Dr Ellis Subjective: patient feels somewhat better this morning. Did get up to chair and minimal walking yesterday that felt good but still worries about initial pain when getting up to side of bed. Objective: NAD, VSS BLE 5/5= Sensation intact to lt touch Arvin X 1- no suction- minimal blood in bulb incision c/d/i - Physician Discussed Patient with : Rhonda Neurosurgery Physical Exam - Vitals, I&O, Labs I and O 09/28/16 09/29/16 09/30/16 05:59 05:59 05:59 Intake Total 1600 400 Output Total 2485 1315 425 Balance -887 -918 -425 Intake: Oral (ml) 1500 400 IV Infused (ml) 100 Micafungin Na 100 mg In 100 Ns 100 ml @ 100 mls/hr IV DAILY [facility] Rx#:[id number] Output: Urine (ml) 2475 1300 425 Toilet 300 400 Urinal 2175 900 425 ARVIN Drain Output (ml) 10 15 Back Basilio Quiñonez 10 15 Other: Intake Quantity Yes Sufficient Number of Voids Toilet 1 2 Urinal 1 1 1 Microbiology 09/26/16 16:35 Gram Stain - Final Back - Aspirate 09/18/16 14:30 Gram Stain - Final Back - Aspirate Vital Signs Temp Pulse Resp BP Pulse Ox 37.0 C 81 13 118/61 94 09/29/16 08:00 09/29/16 08:00 09/29/16 08:00 09/29/16 08:00 09/29/16 08:00 Laboratory Results 09/26/16 02:50 09/26/16 02:50 ICD10 Worksheet Patient Problems: Problems Problem Status Onset Lumbar back pain Acute
[2016-09-29] MEDS: traMADol 50 MG TAB PO PRN (14:20)
--- NOTE | 2016-09-29 14:21 | PCMIDPN ---
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 Washout 09/12/2016 & 09/23/16. Generally better today. --no cx sent from washout 09/23 so sent cx from MARQUISE 09/26 and no growth so far --continue micafungin, plan 8 weeks of therapy --discuss timing repeat MRI with neurosurg tomorrow # Elevated LFTs: no new labs for couple days --check LFTs in AM medications Micafungin 100 mg IV daily, #12 microbiology 09/18 IR drain: aspergillus and 1 colony enterococcus (not pertinent) 09/26 Fungal Cx from MARQUISE drain: NGTD Subjective: feeling better today moving around more less back pain and spasm Objective: Vital Signs Temp Pulse Resp BP Pulse Ox 37.0 C 81 13 118/61 94 09/29/16 08:00 09/29/16 08:00 09/29/16 08:00 09/29/16 08:00 09/29/16 08:00 Microbiology 09/26/16 16:35 Gram Stain - Final Back - Aspirate 09/18/16 14:30 Gram Stain - Final Back - Aspirate Laboratory Results 09/26/16 02:50 09/26/16 02:50 09/28/16 09/29/16 09/30/16 05:59 05:59 05:59 Intake Total 1600 400 100 Output Total 2485 1315 975 Balance -885 -915 -875 ESR 25 MM/HR (0-15) H 09/17/16 17:55 C-Reactive Protein 60.7 mg/L (<10.0) H 09/23/16 04:30 - Physical Exam General Appearance: alert, no apparent distress EENT: No thrush Respiratory: lungs clear, No accessory muscle use Neck: supple Cardiac/Chest: regular rate, rhythm Back: other (incision healing well no erythema, no purulence, MARQUISE drain with serosang fluid) Skin: diaphoresis, No rash Neuro/Psych: alert, normal mood/affect, oriented x 3 - Line/s RUE PICC Lines: No drainage, No erythema - Time Spent With Patient Time Spent with Patient: greater than 35 minutes Time Spent with Patient: Greater than 35 minutes spent on this patients care, greater than 50% of time spent counseling, educating, and coordinating care regarding the above mentioned plan. ICD10 Worksheet Patient Problems: Problems Problem Status Onset Lumbar back pain Acute
[2016-09-29] MEDS: SENNOSIDES/DOCUSATE SODIUM TAB PO SCH (21:18)
[2016-09-30] MEDS: HYDROmorphONE/DILAUDID 2 MG TAB PO PRN (02:12)
[2016-09-30 04:48] LABS: % IMMATURE GRANULYOCYTES 0.8 % (0.0-1.1); ABSOLUTE IMMATURE GRANULOCYTES 0.06 10^3/uL (0.00-0.10); ADD DIFF? NO; ADD MORPH? NO; ADD SCAN? NO; ATYPICAL LYMPHOCYTE FLAG 10 (0-99); FRAGMENT RBC FLAG 0 (0-99); HEMATOCRIT 37.4 % (40.0-51.0); HEMOGLOBIN 12.3 g/dL (13.7-17.5); LEFT SHIFT FLG 0 (0-99); LIPEMIA HEMOLYSIS FLAG 80 (0-99); MEAN CELL HEMOGLOBIN 28.8 pg (27.9-34.1); MEAN CELL HEMOGLOBIN CONCENTR. 32.9 g/dL (32.4-36.7); MEAN CELL VOLUME 87.6 fL (81.5-99.8); MEAN PLATELET VOLUME 9.5 fL (8.7-11.7); PLATELET CLUMPS FLAG 0 (0-99); PLATELET COUNT 416 10^3/uL (150-400); RED BLOOD CELL COUNT 4.27 10^6/uL (4.40-6.38); RED CELL DISTRIBUTION WIDTH 12.6 % (11.5-15.2)
[2016-09-30 05:05] LABS: ALANINE AMINOTRANSFERASE 315 IU/L (21-72); ALBUMIN 3.5 g/dL (3.5-5.0); ALKALINE PHOSPHATASE 205 IU/L (38-126); ANION GAP 12 mEq/L (8-16); ASPARTATE AMINOTRANSFERASE 243 IU/L (17-59); BILIRUBIN,TOTAL 0.8 mg/dL (0.1-1.4); CALCIUM 9.5 mg/dL (8.5-10.4); CARBON DIOXIDE 26 mEq/l (22-31); CHLORIDE 102 mEq/L (97-110); CREATININE 0.9 mg/dL (0.7-1.3); GLOMERULAR FILTRATION RATE > 60; GLUCOSE 105 mg/dL (70-100); POTASSIUM 4.5 mEq/L (3.5-5.2); SODIUM 140 mEq/L (134-144); TOTAL PROTEIN 6.4 g/dL (6.3-8.2)
[2016-09-30] MEDS: POLYETHYLENE GLYCOL 3350 17 GM PKT PO SCH (07:57)
[2016-09-30] MEDS: ENOXAPARIN 40 MG/0.4 ML SYR SC SCH (07:58)
[2016-09-30] MEDS: ACETAMINOPHEN 500 MG TAB PO SCH (07:58)
[2016-09-30] MEDS: METHOCARBAMOL 750 MG TAB PO SCH ×3 (07:58→21:39)
[2016-09-30] MEDS: MAGNESIUM HYDROXIDE 30 ML UDCUP PO PRN (07:59)
[2016-09-30] MEDS: morphINE SR 15 MG TAB PO SCH ×2 (07:59→21:23)
[2016-09-30] MEDS: GABAPENTIN 300 MG CAP PO SCH ×3 (07:59→21:24)
--- NOTE | 2016-09-30 12:14 | PCMIDPN ---
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 Washout 09/12/2016 & 09/23/16. continues to be more active and show signs of improvement --tentatively plan liposomal ampho B 5mg/kg (400 mg) for 2-3 days until LFTs improve then transition to Posaconazole 300mg bid x 1 day then 300mg daily with food for the extension of treatment -- extensively reviewed the plan with patient and multiple family members including risks of amphotericin, posaconazole -- discussed plan with physician with additional expertise in treating and Aspergillus as well as pharmacy -- need to discuss timing of repeat MRI with neurosurg # Elevated LFTs: 4x elevated today - no other drugs attributable than micafungin --recheck labs to confirm abnormality then will proceed as above # Patient with intolerable visual changes to voriconazole previously medications Micafungin 100 mg IV daily, #12 (no dose today) microbiology 09/18 IR drain: aspergillus and 1 colony enterococcus (not pertinent) 09/26 Fungal Cx from MARQUISE drain: NGTD Subjective: patient is slowly improving less back pain Objective: Vital Signs Temp Pulse Resp BP Pulse Ox 36.6 C 87 16 125/78 H 92 09/30/16 08:30 09/30/16 08:30 09/30/16 08:30 09/30/16 08:30 09/30/16 08:30 Microbiology 09/26/16 16:35 Gram Stain - Final Back - Aspirate 09/18/16 14:30 Gram Stain - Final Back - Aspirate Laboratory Results 09/30/16 04:40 09/30/16 04:40 09/29/16 09/30/16 10/01/16 05:59 05:59 05:59 Intake Total 400 350 Output Total 1315 1640 350 Balance -915 -1290 -350 ESR 25 MM/HR (0-15) H 09/17/16 17:55 C-Reactive Protein 60.7 mg/L (<10.0) H 09/23/16 04:30 - Physical Exam General Appearance: WD/WN, alert, no apparent distress EENT: pale conjunctiva, No scleral icterus Respiratory: No accessory muscle use Extremities: No pedal edema Abdomen: normal bowel sounds, non-tender, soft, No hepatomegaly, No splenomegaly Back: other (MARQUISE with cloudy blood drainage; 15cc/day) Skin: No rash Neuro/Psych: no motor/sensory deficits, alert, normal mood/affect, oriented x 3 - Time Spent With Patient Time Spent with Patient: greater than 35 minutes (reviewed plan to give amphotericin for 2-3 days followed by posaconazole; reviewed side effects associated with amphotericin including infusion reaction, electrolyte disturbances and renal dysfunction) Time Spent with Patient: Greater than 35 minutes spent on this patients care, greater than 50% of time spent counseling, educating, and coordinating care regarding the above mentioned plan. ICD10 Worksheet Patient Problems: Problems Problem Status Onset Lumbar back pain Acute
[2016-09-30 13:32] LABS: ALBUMIN 3.6 g/dL (3.5-5.0); BILIRUBIN,TOTAL 0.6 mg/dL (0.1-1.4); BILIRUBIN-CONJUGATED 0.4 mg/dL (0.0-0.5); BILIRUBIN-UNCONJUGATED 0.2 mg/dL (0.0-1.1); TOTAL PROTEIN 6.8 g/dL (6.3-8.2)
--- NOTE | 2016-09-30 14:25 | HOSPPROG ---
Hospitalist Progress Note Assessment/Plan: Patient is a 30-year-old male with a history of lumbar back pain who had a L4-5 microdiskectomy in June. Last week the pain became so bad he went to [place] and underwent a decompression and washout. He was discharged on Keflex. Cultures were obtained on 09/15/2016 which were positive for Aspergillus. At that time infections Disease prescribed for voriconazole. He presented to the emergency room with worsening back pain. 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 #2 on Micafungin 100mg daily #12 on hold today due to increase LFT Dr Kinsey will likely start amphotericin s/p drain placement in lumbar area 09/18 will likely need 8 weeks of abx *elevated LFT holding micafungin and Tylenol *poss dural tear resolved *right hip pain/possibly piriformis area/more gluteal/ radiculopathy type pain w associated spasms MRI shows nothing acute suspect it is referred pain scheduled Robaxin, Gabapentin increased to 300 mg tid long acting morphine has been added by neurosurgical team has no pain this morning the integrative team helped his pain significantly/appreciate their involvement *Leukocytosis resolved *Acute on chronic back pain much better *constipation bowel protocol resolved *dvt prophylaxis: LMWH *Plan: dc Tylenol for now, Micafungin on hold/ will get daily labs Subjective: Bob is feeling well/ able to ambulate better today. Objective: Vital Signs Temp Pulse Resp BP Pulse Ox 36.6 C 87 16 125/78 H 92 09/30/16 08:30 09/30/16 08:30 09/30/16 08:30 09/30/16 08:30 09/30/16 08:30 Microbiology 09/26/16 16:35 Gram Stain - Final Back - Aspirate 09/18/16 14:30 Gram Stain - Final Back - Aspirate Laboratory Results 09/30/16 04:40 09/30/16 04:40 09/29/16 09/30/16 10/01/16 05:59 05:59 05:59 Intake Total 400 350 Output Total 1315 1640 350 Balance -915 -7660 -350 - Physical Exam Constitutional: no apparent distress, appears nourished, not in pain Eyes: PERRL Ears, Nose, Mouth, Throat: hearing normal Cardiovascular: regular rate and rhythym Respiratory: no respiratory distress Gastrointestinal: normoactive bowel sounds Skin: warm Musculoskeletal: generalized weakness Neurologic: AAOx3 Psychiatric: interacting appropriately ICD10 Worksheet Patient Problems: Problems Problem Status Onset Lumbar back pain Acute
[2016-09-30] MEDS ORDERED: AMPHOTERICIN B LIPOSOME IV SCH (15:00)
[2016-09-30] MEDS ORDERED: D5W IV SCH (15:00)
[2016-09-30] MEDS: traMADol 50 MG TAB PO PRN ×2 (15:11→21:23)
--- NOTE | 2016-09-30 17:26 | NEUSURGPN ---
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 Plan: neuro: stable, improved pain and ambulation yesterday and today. Still has "tight" muscles along lower back but improving patient with increased ambulation yesterday- up and walking in hallway for 15 minutes at a time encourage ambulation with PT/OT today- Up at least 4 times today 15 minutes walking in hallway scd/abbey/lovenox for dvt prophylaxis aspergillosis infection, on micofungin per ID Spoke with Dr. Kinsey and will obtain mew MRI lumbar tomorrow to evaluate infection please call with neuro changes will try to wean off long acting narcotics to help with ambulation and getting out of bed Leave Arvin until bone dry discussed with Dr Ellis Subjective: patient continues to improve in terms of ambulation. Feeling better in terms of back pain but still has "stretching/pain" along lower back that is worse after walking. Leg pain improved. Objective: NAD, VSS BLE 5/5= Sensation intact to lt touch Arvin X 1- no suction- minimal discharge in bulb this am incision c/d/i - Physician Discussed Patient with : [facility] Physical Exam - Vitals, I&O, Labs I and O 09/29/16 09/30/16 10/01/16 05:59 05:59 05:59 Intake Total 179 655 6735 Output Total 1315 1640 1305 Balance -915 -1290 -305 Intake: Oral (ml) 215 796 3807 IV Intake (ml) 100 Output: Urine (ml) 1300 1625 1300 Toilet 400 650 Urinal 355 000 5583 ARVIN Drain Output (ml) 15 15 5 Back Basilio Quiñonez 15 15 5 Other: Number of Voids Toilet 2 1 1 Urinal 1 1 1 Microbiology 09/26/16 16:35 Gram Stain - Final Back - Aspirate 09/18/16 14:30 Gram Stain - Final Back - Aspirate Vital Signs Temp Pulse Resp BP Pulse Ox 36.6 C 76 16 131/81 H 97 09/30/16 16:00 09/30/16 16:00 09/30/16 16:00 09/30/16 16:00 09/30/16 16:00 Laboratory Results 09/30/16 04:40 09/30/16 04:40 ICD10 Worksheet Patient Problems: Problems Problem Status Onset Lumbar back pain Acute
[2016-09-30] MEDS: DIAZEPAM 5 MG TAB PO PRN (21:23)
[2016-09-30] MEDS: SENNOSIDES/DOCUSATE SODIUM TAB PO SCH (21:24)
[2016-10-01] MEDS: traMADol 50 MG TAB PO PRN (04:47)
[2016-10-01 07:18] LABS: % IMMATURE GRANULYOCYTES 1.7 % (0.0-1.1); ABSOLUTE IMMATURE GRANULOCYTES 0.12 10^3/uL (0.00-0.10); ADD DIFF? NO; ADD MORPH? NO; ADD SCAN? NO; ATYPICAL LYMPHOCYTE FLAG 20 (0-99); FRAGMENT RBC FLAG 0 (0-99); HEMATOCRIT 37.9 % (40.0-51.0); HEMOGLOBIN 12.4 g/dL (13.7-17.5); LEFT SHIFT FLG 10 (0-99); LIPEMIA HEMOLYSIS FLAG 80 (0-99); MEAN CELL HEMOGLOBIN 28.6 pg (27.9-34.1); MEAN CELL HEMOGLOBIN CONCENTR. 32.7 g/dL (32.4-36.7); MEAN CELL VOLUME 87.5 fL (81.5-99.8); MEAN PLATELET VOLUME 9.7 fL (8.7-11.7); PLATELET CLUMPS FLAG 0 (0-99); PLATELET COUNT 443 10^3/uL (150-400); RED BLOOD CELL COUNT 4.33 10^6/uL (4.40-6.38); RED CELL DISTRIBUTION WIDTH 12.6 % (11.5-15.2)
[2016-10-01] MEDS: ONDANSETRON DISINTEGRATING 4 MG TAB PO PRN ×2 (07:25→11:31)
[2016-10-01 07:41] LABS: ALANINE AMINOTRANSFERASE 303 IU/L (21-72); ALBUMIN 3.4 g/dL (3.5-5.0); ALKALINE PHOSPHATASE 205 IU/L (38-126); ANION GAP 12 mEq/L (8-16); ASPARTATE AMINOTRANSFERASE 147 IU/L (17-59); BILIRUBIN,TOTAL 0.6 mg/dL (0.1-1.4); CARBON DIOXIDE 26 mEq/l (22-31); CHLORIDE 101 mEq/L (97-110); CREATININE 1.5 mg/dL (0.7-1.3); GLOMERULAR FILTRATION RATE 54; GLUCOSE 94 mg/dL (70-100); MAGNESIUM 2.3 mg/dL (1.6-2.3); POTASSIUM 4.7 mEq/L (3.5-5.2); SODIUM 139 mEq/L (134-144); TOTAL PROTEIN 6.5 g/dL (6.3-8.2)
--- NOTE | 2016-10-01 08:40 | HOSPPROG ---
Hospitalist Progress Note Assessment/Plan: Patient is a 30-year-old male with a history of lumbar back pain who had a L4-5 microdiskectomy in June. Last week the pain became so bad he went to [place] and underwent a decompression and washout. He was discharged on Keflex. Cultures were obtained on 09/15/2016 which were positive for Aspergillus. At that time infections Disease prescribed for voriconazole. He presented to the emergency room with worsening back pain. 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 #2 on Micafungin 100mg daily #12 on hold today due to increase LFT Dr Kinsey will likely start amphotericin s/p drain placement in lumbar area 09/18 will likely need 8 weeks of abx MRI pending *renal insuff likely r/t amphotericin will hydrate w 250 ml of saline prior to receiving this medication stop any nephrotoxic medications *elevated LFT holding micafungin and Tylenol *poss dural tear resolved *right hip pain/possibly piriformis area/more gluteal/ radiculopathy type pain w associated spasms scheduled Robaxin, Gabapentin increased to 300 mg tid long acting morphine has been added by neurosurgical team the integrative team helped his pain *Leukocytosis resolved *Acute on chronic back pain ongoing/this varies day to day *constipation bowel protocol patient said he hasn't had a bowel movement in multiple days *dvt prophylaxis: LMWH/if creat cont to rise /will need to change to heparin tid *Plan: fluids prior to Amphotericin, ask nursing staff to bladder scan prn/ he feels he may not be emptying his bladder. Spoke with Areli Reeves and she will see Bob today or tomorrow/ I am concerned he is getting depressed. Subjective: Bob is feeling low today/ frustrated that he is having ongoing pain. Objective: Vital Signs Temp Pulse Resp BP Pulse Ox 36.6 C 84 16 128/80 H 94 09/30/16 23:26 09/30/16 23:26 09/30/16 23:26 09/30/16 23:26 09/30/16 23:26 Microbiology 09/26/16 16:35 Gram Stain - Final Back - Aspirate 09/18/16 14:30 Gram Stain - Final Back - Aspirate Laboratory Results 10/01/16 06:40 10/01/16 06:40 0710/01/16 10/02/16 05:59 05:59 05:59 Intake Total 350 1725 Output Total 1640 1640 Balance -1290 85 - Physical Exam Constitutional: uncomfortable Eyes: PERRL Ears, Nose, Mouth, Throat: hearing normal Cardiovascular: regular rate and rhythym Respiratory: no respiratory distress Gastrointestinal: normoactive bowel sounds Skin: warm Musculoskeletal: muscular tenderness, generalized weakness Neurologic: AAOx3 Psychiatric: depressed ICD10 Worksheet Patient Problems: Problems Problem Status Onset Lumbar back pain Acute
[2016-10-01] MEDS: GABAPENTIN 300 MG CAP PO SCH ×3 (09:19→20:57)
[2016-10-01] MEDS: POLYETHYLENE GLYCOL 3350 17 GM PKT PO SCH ×2 (09:19→09:20)
[2016-10-01] MEDS: METHOCARBAMOL 750 MG TAB PO SCH ×3 (09:19→20:58)
[2016-10-01] MEDS: morphINE SR 15 MG TAB PO SCH ×2 (09:19→20:57)
[2016-10-01] MEDS: ENOXAPARIN 40 MG/0.4 ML SYR SC SCH (09:19)
[2016-10-01 10:28] LABS: ANION GAP 16 mEq/L (8-16); CALCIUM 10.1 mg/dL (8.5-10.4); CARBON DIOXIDE 22 mEq/l (22-31); CHLORIDE 100 mEq/L (97-110); CREATININE 1.6 mg/dL (0.7-1.3); GLOMERULAR FILTRATION RATE 50; GLUCOSE 104 mg/dL (70-100); POTASSIUM 4.4 mEq/L (3.5-5.2); SODIUM 138 mEq/L (134-144)
[2016-10-01] MEDS: HYDROmorphONE/DILAUDID 2 MG TAB PO PRN ×2 (11:28→22:20)
[2016-10-01] MEDS ORDERED: GADOBUTROL 10 ML VIAL IVP ONE (11:54)
--- NOTE | 2016-10-01 12:55 | NEUSURGPN ---
Assessment/Plan: 30y/o male with s/p L4/5 microdiscetomy/decompression in June 2016 and then redo decompression and washout on 09/12/16 at [facility] found to Aspergillios infection -Optimize pain management -Leave MARQUISE in for now -Will continue to monitor patient over the weekend -MRI lumbar spine with/without pending -Continue PT/OT, discussed isometric, in chair/bed exercise. Ambulate 3x per day -Please notify NS with any change in neuro/motor exam -Discussed with Dr. Ellis -Dispo planning once cleared by ID and if MRI okay. Subjective: Pain tolerable with medication. LSO brace does help when OOB Objective: NAD A&Ox3 MAEx4 5/5 and equal in BUE and BLE. Incision c/d/i - Physician Discussed Patient with : Rh[facility] Physical Exam - Vitals, I&O, Labs I and O 09/30/16 10/01/16 10/02/16 05:59 05:59 05:59 Intake Total 350 1725 Output Total 1640 1640 Balance -1290 85 Intake: Oral (ml) 250 1400 IV Intake (ml) 100 IV Infused (ml) 325 Amphotericin B Liposome 325 400 mg In D5w 272 ml @ 132.857 mls/hr IV DAILY@ 1500 [facility] Rx#:[id number] Output: Urine (ml) 1625 1625 Toilet 650 Urinal 975 1625 MARQUISE Drain Output (ml) 15 15 Back Basilio Quiñonez 15 15 Other: Number of Voids Toilet 1 1 Urinal 1 1 Microbiology 09/26/16 16:35 Gram Stain - Final Back - Aspirate 09/18/16 14:30 Gram Stain - Final Back - Aspirate Vital Signs Temp Pulse Resp BP Pulse Ox 36.8 C 75 16 120/79 90 L 10/01/16 08:00 10/01/16 08:00 10/01/16 08:00 10/01/16 08:00 10/01/16 08:00 Laboratory Results 10/01/16 06:40 10/01/16 10:00 ICD10 Worksheet Patient Problems: Problems Problem Status Onset Lumbar back pain Acute - ICD10 Problem Qualifiers (1) Lumbar back pain Qualifiers: Chronicity: C Back pain laterality: B Sciatica presence: S Sciatica laterality: S
[2016-10-01] MEDS: LACTULOSE 20 GM/30 ML UDCUP PO PRN (13:24)
[2016-10-01] MEDS ORDERED: NS 250 ML IV SCH ×2 (14:00→14:30)
--- NOTE | 2016-10-01 15:27 | PCMIDPN ---
Assessment/Plan: Assessment/Plan: * Aspergillus wound infection/L4-L5 diskitis with probable osteomyelitis post microdiskectomy status post incision and drainage: Started on liposomal amphotericin B given increase in liver function tests while on micafungin. Creatinine now has increased to 1.6 today after 1st dose of amphotericin B. concerned this will continue to rise with continued amphotericin B. Will hold additional doses pending repeat creatinine in a.m. and follow up of liver function tests in a.m.. If LFTs stable or improved, consider beginning posaconazole versus repeat trial of voriconazole as he feels that he may be able to tolerate visual side effects at this point in his course. 10/01/16 15:19 Subjective: Patient complains of musculoskeletal pain. About to get up and walk. Eager to transition to rehab. Started on liposomal amphotericin B yesterday given increased liver function tests with micafungin. Objective: Vital Signs Temp Pulse Resp BP Pulse Ox 36.8 C 75 16 120/79 90 L 10/01/16 08:00 10/01/16 09:15 10/01/16 08:00 10/01/16 08:00 10/01/16 09:15 Microbiology 09/26/16 16:35 Gram Stain - Final Back - Aspirate 09/18/16 14:30 Gram Stain - Final Back - Aspirate Laboratory Results 10/01/16 06:40 10/01/16 10:00 09/30/16 10/01/16 10/02/16 05:59 05:59 05:59 Intake Total 350 1725 Output Total 1640 1640 Balance -1290 85 ESR 25 MM/HR (0-15) H 09/17/16 17:55 C-Reactive Protein 60.7 mg/L (<10.0) H 09/23/16 04:30 Liposomal amphotericin B #1 - Physical Exam General Appearance: alert, no apparent distress EENT: No scleral icterus Back: other (Back incision intact without erythema or drainage) ICD10 Worksheet Patient Problems: Problems Problem Status Onset Lumbar back pain Acute
[2016-10-01] MEDS: NS 1,000 ML IV SCH (18:20)
[2016-10-01] MEDS: SENNOSIDES/DOCUSATE SODIUM TAB PO SCH (20:57)
[2016-10-01] MEDS: DIAZEPAM 5 MG TAB PO PRN (22:20)
[2016-10-02] MEDS: NS 1,000 ML IV SCH ×2 (03:22→15:14)
[2016-10-02] MEDS: HYDROmorphONE/DILAUDID 2 MG TAB PO PRN ×2 (05:21→22:25)
[2016-10-02 05:43] LABS: % IMMATURE GRANULYOCYTES 1.5 % (0.0-1.1); ABSOLUTE IMMATURE GRANULOCYTES 0.11 10^3/uL (0.00-0.10); ADD DIFF? NO; ADD MORPH? NO; ADD SCAN? NO; ATYPICAL LYMPHOCYTE FLAG 20 (0-99); FRAGMENT RBC FLAG 0 (0-99); HEMATOCRIT 36.9 % (40.0-51.0); HEMOGLOBIN 12.1 g/dL (13.7-17.5); LEFT SHIFT FLG 10 (0-99); LIPEMIA HEMOLYSIS FLAG 80 (0-99); MEAN CELL HEMOGLOBIN 28.6 pg (27.9-34.1); MEAN CELL HEMOGLOBIN CONCENTR. 32.8 g/dL (32.4-36.7); MEAN CELL VOLUME 87.2 fL (81.5-99.8); MEAN PLATELET VOLUME 9.5 fL (8.7-11.7); PLATELET CLUMPS FLAG 0 (0-99); PLATELET COUNT 445 10^3/uL (150-400); RED BLOOD CELL COUNT 4.23 10^6/uL (4.40-6.38); RED CELL DISTRIBUTION WIDTH 12.6 % (11.5-15.2)
[2016-10-02 06:07] LABS: ALANINE AMINOTRANSFERASE 345 IU/L (21-72); ALBUMIN 3.5 g/dL (3.5-5.0); ALKALINE PHOSPHATASE 181 IU/L (38-126); ASPARTATE AMINOTRANSFERASE 171 IU/L (17-59); BILIRUBIN,TOTAL 0.6 mg/dL (0.1-1.4); CALCIUM 9.5 mg/dL (8.5-10.4); CARBON DIOXIDE 23 mEq/l (22-31); CHLORIDE 104 mEq/L (97-110); CREATININE 1.2 mg/dL (0.7-1.3); GLOMERULAR FILTRATION RATE > 60; GLUCOSE 90 mg/dL (70-100); MAGNESIUM 2.3 mg/dL (1.6-2.3); SODIUM 140 mEq/L (134-144); TOTAL PROTEIN 6.4 g/dL (6.3-8.2)
[2016-10-02 06:09] LABS: ANION GAP 13 mEq/L (8-16); POTASSIUM 4.9 mEq/L (3.5-5.2)
[2016-10-02] MEDS: POLYETHYLENE GLYCOL 3350 17 GM PKT PO SCH (08:16)
[2016-10-02] MEDS: GABAPENTIN 300 MG CAP PO SCH ×3 (08:17→20:32)
[2016-10-02] MEDS: morphINE SR 15 MG TAB PO SCH ×2 (08:17→20:32)
[2016-10-02] MEDS: METHOCARBAMOL 750 MG TAB PO SCH ×3 (08:17→20:32)
[2016-10-02] MEDS: ENOXAPARIN 40 MG/0.4 ML SYR SC SCH (08:17)
--- NOTE | 2016-10-02 08:32 | NEUSURGPN ---
Assessment/Plan: 30y/o male with s/p L4/5 microdiscetomy/decompression in June 2016 and then redo decompression and washout on 09/12/16 at [facility] found to Aspergillios infection -Optimize pain management, Okay to use TENs unit from home, discussed as long as it is not over incisional muscles. He is having some low back and right anterior leg spasms. -Leave MARQUISE in for now -Will continue to monitor patient over the weekend -MRI lumbar spine yesterday stable, results discussed patient and . -Continue PT/OT, discussed isometric, in chair/bed exercise. Ambulate 3x per day -Please notify NS with any change in neuro/motor exam -Discussed with Dr. Ellis -Dispo planning once cleared by ID Subjective: New right anterior chin pain with back spasms Objective: NAD A&Ox3 MAEx4 07/27 and equal in BUE and BLE. - Physician Discussed Patient with : Rhonda Neurosurgery Physical Exam - Vitals, I&O, Labs I and O 10/01/16 10/02/16 10/03/16 05:59 05:59 05:59 Intake Total 1725 2304 Output Total 1640 1000 Balance 85 1304 Intake: Oral (ml) 1400 1000 IV Infused (ml) 325 1304 Amphotericin B Liposome 325 400 mg In D5w 272 ml @ 132.857 mls/hr IV DAILY@ 1500 [facility] Rx#:[id number] Ns 1,000 ml @ 125 mls/hr 1304 IV CONT [facility] Rx#: [id number] Output: Urine (ml) 1625 1000 Toilet 700 Urinal 1625 300 MARQUISE Drain Output (ml) 15 Back Basilio Quiñonez 15 Other: Number of Voids Toilet 1 1 Urinal 1 Number of Stools Toilet 1 Microbiology 09/26/16 16:35 Gram Stain - Final Back - Aspirate 09/18/16 14:30 Gram Stain - Final Back - Aspirate Vital Signs Temp Pulse Resp BP Pulse Ox 37.0 C 81 15 126/74 H 91 L 10/02/16 07:52 10/02/16 07:52 10/02/16 07:52 10/02/16 07:52 10/02/16 07:52 Laboratory Results 10/02/16 05:15 10/02/16 05:15 ICD10 Worksheet Patient Problems: Problems Problem Status Onset Lumbar back pain Acute - ICD10 Problem Qualifiers (1) Lumbar back pain Qualifiers: Chronicity: C Back pain laterality: B Sciatica presence: S Sciatica laterality: S
[2016-10-02] MEDS ORDERED: VORICONAZOLE 200 MG TAB PO SCH (13:30)
[2016-10-02] MEDS: LACTULOSE 20 GM/30 ML UDCUP PO PRN (14:06)
--- NOTE | 2016-10-02 15:24 | HOSPPROG ---
Hospitalist Progress Note Assessment/Plan: Amphotericin on hold/ will place him on normal saline @ 125 ml/hour. Original Note: Hospitalist Progress Note Assessment/Plan: Patient is a 30-year-old male with a history of lumbar back pain who had a L4-5 microdiskectomy in June. Last week the pain became so bad he went to [place] and underwent a decompression and washout. He was discharged on Keflex. Cultures were obtained on 09/15/2016 which were positive for Aspergillus. At that time infections Disease prescribed for voriconazole. He presented to the emergency room with worsening back pain. 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 #2 on Micafungin 100mg daily #12 on hold due to increase LFT D/W Dr Kinsey, restart meds s/p drain placement in lumbar area 09/18 will likely need 8 weeks of abx MRI done will get bone bx tomorrow *renal insuff likely r/t amphotericin hydrated w 250 ml of saline prior to receiving this medication stop any nephrotoxic medications better today *elevated LFT holding micafungin and Tylenol *poss dural tear resolved *right hip pain/possibly piriformis area/more gluteal/ radiculopathy type pain w associated spasms scheduled Robaxin, Gabapentin increased to 300 mg tid long acting morphine has been added by neurosurgical team the integrative team helped his pain *Leukocytosis resolved *Acute on chronic back pain ongoing/this varies day to day severe today per pt plan for bone bx *constipation bowel protocol patient said he hasn't had a bowel movement in multiple days *dvt prophylaxis: LMWH/if creat cont to rise /will need to change to heparin tid *Plan: fluids prior to Amphotericin, ask nursing staff to bladder scan prn/ he feels he may not be emptying his bladder. Areli Reeves to see pt/ I am concerned he is getting depressed. Reviewed with CM and Dr Kinsey Subjective: Up in chair. at bedside. Still having significant pain in right leg and alvarado. Objective: Vital Signs Temp Pulse Resp BP Pulse Ox 37.0 C 81 15 126/74 H 91 L 10/02/16 07:52 10/02/16 07:52 10/02/16 07:52 10/02/16 07:52 10/02/16 07:52 Microbiology 09/26/16 16:35 Gram Stain - Final Back - Aspirate 09/18/16 14:30 Gram Stain - Final Back - Aspirate Anaerobic Culture - Final Aspergillus Fumigatus Enterococcus Faecalis 09/18/16 14:30 Mycobacterial Smear (LIZBET) - Final Back - Aspirate Laboratory Results 10/02/16 05:15 10/02/16 05:15 10/01/16 10/02/16 10/03/16 05:59 05:59 05:59 Intake Total 1725 2304 Output Total 1640 1000 15 Balance 85 1304 -15 - Physical Exam Constitutional: appears nourished, chronically ill appearing, uncomfortable Eyes: PERRL, anicteric sclera, EOMI Ears, Nose, Mouth, Throat: moist mucous membranes, hearing normal, ears appear normal Cardiovascular: regular rate and rhythym, No JVD, No edema Respiratory: no respiratory distress, no rales or rhonchi, reduced air movement Gastrointestinal: normoactive bowel sounds, No tenderness, No ascites Skin: warm, normal color, No erythema Musculoskeletal: pain with ROM, muscular tenderness, generalized weakness Neurologic: AAOx3 Psychiatric: not anxious, not encephalopathic, thought process linear, flat affect ICD10 Worksheet Patient Problems: Problems Problem Status Onset Lumbar back pain Acute
--- NOTE | 2016-10-02 16:16 | PCMIDPN ---
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 Washout 09/12/2016 & 09/23/16. still with ongoing back pain intermittent right leg spasms and a fairly inflammatory appearing MRI. Difficult to assess clinical improvement of wound infection. may need definitive back surgery with hardware placement to relieve underlying back disease. Discussed case with Dr. Ellis. -- Plan biopsy of the disc space L4-L5 and paraspinous inflammatory area on to further establish control of infection as difficult to assess clinically # antifungal toxicity:patient with mild acute renal failure following 1 dose of liposomal amphotericin therefore this medicine was discontinued. Unexpectedly patient's LFTs have remained elevated , initial trigger was thought to be micafungin which has a less than 1 day half life which should have cleared by now since his last dose was September 29. certainly liposomal amphotericin can have liver toxicity as well. --Will hold antifungal today and check labs in the a.m. and likely resume voriconazole medications Micafungin 100 mg IV daily, s/p12 day liposomal amphotericin x1 day microbiology 09/18 IR drain: aspergillus and 1 colony enterococcus (not pertinent) 09/26 Fungal Cx from MARQUISE drain: NGTD Subjective: patient complaining of severe right leg spasms ; he is very downtrodden due to the degree of complications ongoing As well as potential need for hardware placement in his back Objective: Vital Signs Temp Pulse Resp BP Pulse Ox 37.0 C 81 15 126/74 H 91 L 10/02/16 07:52 10/02/16 07:52 10/02/16 07:52 10/02/16 07:52 10/02/16 07:52 Microbiology 09/26/16 16:35 Gram Stain - Final Back - Aspirate 09/18/16 14:30 Gram Stain - Final Back - Aspirate Anaerobic Culture - Final Aspergillus Fumigatus Enterococcus Faecalis 09/18/16 14:30 Mycobacterial Smear (LIZBET) - Final Back - Aspirate Laboratory Results 10/02/16 05:15 10/02/16 05:15 10/01/16 10/02/16 10/03/16 05:59 05:59 05:59 Intake Total 1725 2304 Output Total 1640 1000 15 Balance 85 1304 -15 ESR 25 MM/HR (0-15) H 09/17/16 17:55 C-Reactive Protein 60.7 mg/L (<10.0) H 09/23/16 04:30 Gen: emotional distress but non toxic Breathing easy no rashes RUE PICC c/d/i MARQUISE drain with small amount of blood back incision is healed ICD10 Worksheet Patient Problems: Problems Problem Status Onset Lumbar back pain Acute
[2016-10-02] MEDS: SENNOSIDES/DOCUSATE SODIUM TAB PO SCH (20:31)
[2016-10-02] MEDS: DIAZEPAM 5 MG TAB PO PRN (21:11)
[2016-10-03 06:20] LABS: % IMMATURE GRANULYOCYTES 1.3 % (0.0-1.1); ABSOLUTE IMMATURE GRANULOCYTES 0.09 10^3/uL (0.00-0.10); ADD DIFF? NO; ADD MORPH? NO; ADD SCAN? NO; ATYPICAL LYMPHOCYTE FLAG 20 (0-99); FRAGMENT RBC FLAG 0 (0-99); HEMATOCRIT 34.9 % (40.0-51.0); HEMOGLOBIN 11.7 g/dL (13.7-17.5); LEFT SHIFT FLG 10 (0-99); LIPEMIA HEMOLYSIS FLAG 80 (0-99); MEAN CELL HEMOGLOBIN CONCENTR. 33.5 g/dL (32.4-36.7); MEAN CELL VOLUME 86.6 fL (81.5-99.8); MEAN PLATELET VOLUME 8.8 fL (8.7-11.7); PLATELET CLUMPS FLAG 0 (0-99); PLATELET COUNT 406 10^3/uL (150-400); RED BLOOD CELL COUNT 4.03 10^6/uL (4.40-6.38); RED CELL DISTRIBUTION WIDTH 12.8 % (11.5-15.2)
[2016-10-03 06:41] LABS: ALANINE AMINOTRANSFERASE 291 IU/L (21-72); ALBUMIN 3.2 g/dL (3.5-5.0); ALKALINE PHOSPHATASE 151 IU/L (38-126); ANION GAP 10 mEq/L (8-16); ASPARTATE AMINOTRANSFERASE 103 IU/L (17-59); BILIRUBIN,TOTAL 0.6 mg/dL (0.1-1.4); C-REACTIVE PROTEIN 49.8 mg/L (<10.0); CALCIUM 9.5 mg/dL (8.5-10.4); CARBON DIOXIDE 24 mEq/l (22-31); CHLORIDE 105 mEq/L (97-110); CREATININE 0.9 mg/dL (0.7-1.3); GLOMERULAR FILTRATION RATE > 60; GLUCOSE 91 mg/dL (70-100); POTASSIUM 4.4 mEq/L (3.5-5.2); SODIUM 139 mEq/L (134-144); TOTAL PROTEIN 6.2 g/dL (6.3-8.2)
--- NOTE | 2016-10-03 08:12 | NEUSURGPN ---
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 Plan: 30y/o male with s/p L4/5 microdiscetomy/decompression in June 2016 at [facility] and then redo decompression and washout on 09/12/16 at [facility] found to Aspergillios infection 10/03 0800 Greater than 30 minutes spent reviewing MRI and discussing plan from a surgical prospective this morning. Patient feels "blind sided" by yesterday's conversation with Dr Ellis. It has been our hopes that patient would improve without further surgical intervention. Pending patient decision, biopsy of surrounding tissue with IR tomorrow to determine if tissue is sterile vs. active infected, based on those results will decide on surgery from there. Wash out vs. decompression vs. fusion were all discussed. Pending the stability of the spine, fusion may be necessary to achieve proper decompression while maintaining stability. Patient would like to obtain another opinion with a spine surgeon. 10/03 @1300 Dr Ellis has discussed patient with Dr Peguero at [facility]. Dr Peguero will willing to accept the patient as a direct admit and take over care. I spoke with the patient and his mother about the possibility of advancing his care to a higher level academic center. The patient will talk things over with his and let us know what he decides. Patient expressed his gratitude for Dr Ellis and his team and what we have done for him. -Optimize pain management, Okay to use TENs unit from home, discussed as long as it is not over incisional muscles -Most recent 10/01 MRI lumbar spine stable -Continue PT/OT, discussed isometric, in chair/bed exercise. Ambulate 3x per day -Leave MARQUISE in for now -Possible transfer to [place] pending patient decision -Please notify NS with any change in neuro/motor exam -Discussed with Dr. Ellis Subjective: Patient has low back pain, right leg pain/weakness Objective: NAD A&Ox3 MAEx4 5/5 and equal in BUE and BLE aside from Right TA 4/5 Incision CDI, sutures present MARQUISE in place Neuro Check Frequency: per routine Urinary Catheter in Place: No - Physician Discussed Patient with Dr.: Ellis Neurosurgery Physical Exam - Vitals, I&O, Labs I and O 10/02/16 10/03/16 10/04/16 05:59 05:59 05:59 Intake Total 2304 582 Output Total 1000 1890 Balance 1304 -1308 Intake: Oral (ml) 1000 150 IV Infused (ml) 1304 432 Ns 1,000 ml @ 125 mls/hr 1304 432 IV CONT [facility] Rx#: [id number] Output: Urine (ml) 1000 1875 Toilet 700 675 Urinal 300 1200 MARQUISE Drain Output (ml) 15 Back Basilio Quiñonez 15 Other: Number of Voids Toilet 1 2 Number of Stools Toilet 1 1 Microbiology 09/26/16 16:35 Gram Stain - Final Back - Aspirate 09/18/16 14:30 Gram Stain - Final Back - Aspirate Anaerobic Culture - Final Aspergillus Fumigatus Enterococcus Faecalis 09/18/16 14:30 Mycobacterial Smear (LIZBET) - Final Back - Aspirate Vital Signs Temp Pulse Resp BP Pulse Ox 37.0 C 79 14 116/78 91 L 10/03/16 07:30 10/03/16 07:30 10/03/16 07:30 10/03/16 07:30 10/03/16 07:30 Laboratory Results 10/03/16 06:15 10/03/16 06:15 ICD10 Worksheet Patient Problems: Problems Problem Status Onset Lumbar back pain Acute
[2016-10-03] MEDS: GABAPENTIN 300 MG CAP PO SCH ×3 (08:57→20:03)
[2016-10-03] MEDS: METHOCARBAMOL 750 MG TAB PO SCH ×3 (08:57→20:03)
[2016-10-03] MEDS: morphINE SR 15 MG TAB PO SCH ×2 (08:57→20:03)
[2016-10-03] MEDS ORDERED: VORICONAZOLE 200 MG TAB PO SCH (09:00)
[2016-10-03] MEDS: POLYETHYLENE GLYCOL 3350 17 GM PKT PO SCH (09:06)
--- NOTE | 2016-10-03 10:21 | PCMIDPN ---
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 Washout 09/12/2016 & 09/23/16. Patient with toxicity to micafungin with elevated LFTs, finally improving today. In addition patient had elevated creatinine to 1 dose of liposomal amphotericin. -- Plan biopsy of the disc space L4-L5 and paraspinous inflammatory area on 10/04 to further establish control of infection --re-challenge with voriconazole 400mg bid x 2 doses then 200mg PO BID, Interactions with pharmacy reviewed will just put Valium at 2.5-5 mg q.6 hours to assure he is not over sedated --continue daily labs --dc fluids --patient considering # Prior visual changes to voriconazole but co-administration of other meds - will re-introduce today as above # Elevated LFTs to micafungin # ARF to 1.6 after 1 dose of amphotericin 400mg, Cr normal today medications antifungals held 10/01, 10/02 for lab abnormalities Micafungin 100 mg IV daily, s/p 12 day, last dose 09/29/16 liposomal amphotericin x1 day 09/30/16 microbiology 09/18 IR drain: aspergillus and 1 colony enterococcus ; sensi of aspergillus pending 09/26 Fungal Cx from MARQUISE drain: NGTD Reviewed in [facility] today 09/12 0910 lumbar spine aspergillus 09/12 0907 lumbar spine negative to date 09/12 0855 epidural space negative to date Subjective: patient with many questions. Back pain is improved and right leg pain is improved. Patient does not want to think about placement of hardware currently. Objective: Vital Signs Temp Pulse Resp BP Pulse Ox 37.0 C 79 14 116/78 91 L 10/03/16 07:30 10/03/16 07:30 10/03/16 07:30 10/03/16 07:30 10/03/16 07:30 Microbiology 09/26/16 16:35 Gram Stain - Final Back - Aspirate 09/18/16 14:30 Gram Stain - Final Back - Aspirate Anaerobic Culture - Final Aspergillus Fumigatus Enterococcus Faecalis 09/18/16 14:30 Mycobacterial Smear (LIZBET) - Final Back - Aspirate Laboratory Results 10/03/16 06:15 10/03/16 06:15 10/02/16 10/03/16 10/04/16 05:59 05:59 05:59 Intake Total 2304 582 Output Total 1000 1890 Balance 1304 -1308 ESR 25 MM/HR (0-15) H 09/17/16 17:55 C-Reactive Protein 49.8 mg/L (<10.0) H 10/03/16 06:15 09/17/16 09/17/16 09/17/16 17:55 20:30 Unknown IgG 910 IgA 193 IgM 108 Complement C3 169 Complement C4 37 Tot Complement (CH50) 73 % CD4 Cells Absolute CD4 Count T-Lymph CD4/CD8 Ratio % CD8 Cells Absolute CD8 Count HIV 1&2 Antibody NEGATIVE A. galactomannan Ag 09/21/16 09/22/16 10:00 04:30 IgG IgA IgM Complement C3 Complement C4 Tot Complement (CH50) % CD4 Cells 31 Absolute CD4 Count 521 T-Lymph CD4/CD8 Ratio 1.8 % CD8 Cells 17 Absolute CD8 Count 288 HIV 1&2 Antibody A. galactomannan Ag < 0.500 Laboratory Tests 09/30/16 09/30/16 10/01/16 04:40 13:05 06:40 Total Bilirubin 0.6 Conjugated Bilirubin 0.4 Unconjugated Bilirubin 0.2 AST 243 H 165 H 147 H ALT 315 H 310 H 303 H Alkaline Phosphatase 205 H 216 H 205 H 10/02/16 10/03/16 05:15 06:15 Total Bilirubin Conjugated Bilirubin Unconjugated Bilirubin AST 171 H 103 H ALT 345 H 291 H Alkaline Phosphatase 181 H 151 H - Physical Exam General Appearance: alert, no apparent distress EENT: No scleral icterus Respiratory: No accessory muscle use Extremities: No pedal edema, No erythema Male Genitalia: No morales Back: other ( MARQUISE with small amount of blood in the bulb; yesterday wound examined and was healed) Skin: No rash Neuro/Psych: no motor/sensory deficits, alert, normal mood/affect, oriented x 3 - Line/s RUE PICC Lines: No drainage, No erythema - Time Spent With Patient Time Spent with Patient: greater than 35 minutes Time Spent with Patient: Greater than 35 minutes spent on this patients care, greater than 50% of time spent counseling, educating, and coordinating care regarding the above mentioned plan. ICD10 Worksheet Patient Problems: Problems Problem Status Onset Lumbar back pain Acute
[2016-10-03] MEDS: VORICONAZOLE 200 MG TAB PO SCH ×2 (11:53→20:03)
--- NOTE | 2016-10-03 12:24 | HOSPPROG ---
Hospitalist Progress Note Assessment/Plan: Hospitalist Progress Note Assessment/Plan: Patient is a 30-year-old male with a history of lumbar back pain who had a L4-5 microdiskectomy on 07/10/2016. Last week the pain became so bad he went to [place] and underwent a decompression and washout. He was discharged on Keflex. Cultures were obtained on 09/15/2016 which were positive for Aspergillus. At that time infections Disease prescribed for voriconazole. He presented to the emergency room with worsening back pain. *Aspergillus lumbar infection/diskitis, possible osteomyelitis @ L4-L5 Washout 09/12/2016 & 09/23/16. Patient with toxicity to micafungin with elevated LFTs, improving today. Plan biopsy of the disc space L4-L5 and paraspinous inflammatory area on 10/04 to further establish control of infection re-challenge with voriconazole, Micafungin 100 mg IV daily, s/p 12 day liposomal amphotericin x1 day s/p drain placement in lumbar area 09/18 *renal insuff likely r/t amphotericin hydrated w 250 ml of saline prior to receiving this medication stop any nephrotoxic medications better *elevated LFT improving *poss dural tear resolved *right hip pain/possibly piriformis area/more gluteal/ radiculopathy type pain w associated spasms scheduled Robaxin, Gabapentin increased to 300 mg tid long acting morphine has been added by neurosurgical team the integrative team helped his pain *Leukocytosis resolved *Acute on chronic back pain ongoing/this varies day to day *constipation bowel protocol *dvt prophylaxis: LMWH/if creat cont to rise /will need to change to heparin tid *Plan: Areli Reeves to see pt/ I am concerned he is getting depressed. Reviewed with CM and Dr Kinsey Subjective: Up in the chair. Anxious about biopsy tomorrow. Pain better today. Objective: Vital Signs Temp Pulse Resp BP Pulse Ox 37.0 C 79 14 116/78 91 L 10/03/16 07:30 10/03/16 07:30 10/03/16 07:30 10/03/16 07:30 10/03/16 07:30 Microbiology 09/26/16 16:35 Gram Stain - Final Back - Aspirate 09/18/16 14:30 Gram Stain - Final Back - Aspirate Anaerobic Culture - Final Aspergillus Fumigatus Enterococcus Faecalis 09/18/16 14:30 Mycobacterial Smear (LIZBET) - Final Back - Aspirate Laboratory Results 10/03/16 06:15 10/03/16 06:15 10/02/16 10/03/16 10/04/16 05:59 05:59 05:59 Intake Total 2304 582 Output Total 1000 1890 Balance 1304 -1308 - Physical Exam Constitutional: appears nourished, chronically ill appearing, uncomfortable Eyes: PERRL, anicteric sclera, EOMI Ears, Nose, Mouth, Throat: moist mucous membranes, hearing normal, ears appear normal Cardiovascular: regular rate and rhythym, No JVD, No edema Respiratory: no respiratory distress, no rales or rhonchi, reduced air movement Gastrointestinal: normoactive bowel sounds, No tenderness, No ascites Skin: warm, normal color, No erythema Musculoskeletal: pain with ROM, muscular tenderness, generalized weakness Neurologic: AAOx3, weakness Psychiatric: not encephalopathic, thought process linear, anxious ICD10 Worksheet Patient Problems: Problems Problem Status Onset Lumbar back pain Acute
[2016-10-03] MEDS: SENNOSIDES/DOCUSATE SODIUM TAB PO SCH (20:02)
[2016-10-03] MEDS: DIAZEPAM 5 MG TAB PO PRN (20:03)
[2016-10-04] MEDS: HYDROmorphONE/DILAUDID 2 MG TAB PO PRN (00:12)
[2016-10-04] MEDS: DIAZEPAM 5 MG TAB PO PRN ×3 (02:49→20:24)
[2016-10-04 06:43] LABS: % IMMATURE GRANULYOCYTES 1.2 % (0.0-1.1); ADD DIFF? NO; ADD MORPH? NO; ADD SCAN? NO; ATYPICAL LYMPHOCYTE FLAG 30 (0-99); FRAGMENT RBC FLAG 0 (0-99); HEMATOCRIT 36.6 % (40.0-51.0); HEMOGLOBIN 11.9 g/dL (13.7-17.5); LEFT SHIFT FLG 10 (0-99); LIPEMIA HEMOLYSIS FLAG 80 (0-99); MEAN CELL HEMOGLOBIN 28.5 pg (27.9-34.1); MEAN CELL HEMOGLOBIN CONCENTR. 32.5 g/dL (32.4-36.7); MEAN CELL VOLUME 87.8 fL (81.5-99.8); MEAN PLATELET VOLUME 9.3 fL (8.7-11.7); PLATELET CLUMPS FLAG 0 (0-99); PLATELET COUNT 457 10^3/uL (150-400); RED BLOOD CELL COUNT 4.17 10^6/uL (4.40-6.38)
[2016-10-04 07:02] LABS: ALANINE AMINOTRANSFERASE 227 IU/L (21-72); ALBUMIN 3.5 g/dL (3.5-5.0); ALKALINE PHOSPHATASE 133 IU/L (38-126); ANION GAP 13 mEq/L (8-16); ASPARTATE AMINOTRANSFERASE 60 IU/L (17-59); BILIRUBIN,TOTAL 0.6 mg/dL (0.1-1.4); CALCIUM 9.7 mg/dL (8.5-10.4); CARBON DIOXIDE 25 mEq/l (22-31); CHLORIDE 105 mEq/L (97-110); GLOMERULAR FILTRATION RATE > 60; GLUCOSE 93 mg/dL (70-100); MAGNESIUM 2.2 mg/dL (1.6-2.3); POTASSIUM 4.5 mEq/L (3.5-5.2); SODIUM 143 mEq/L (134-144); TOTAL PROTEIN 6.3 g/dL (6.3-8.2)
[2016-10-04] MEDS: VORICONAZOLE 200 MG TAB PO SCH ×2 (08:10→20:26)
[2016-10-04] MEDS: METHOCARBAMOL 750 MG TAB PO SCH ×3 (08:10→20:25)
[2016-10-04] MEDS: morphINE SR 15 MG TAB PO SCH ×2 (08:10→20:25)
[2016-10-04] MEDS: GABAPENTIN 300 MG CAP PO SCH ×3 (08:10→20:24)
--- NOTE | 2016-10-04 08:57 | NEUSURGPN ---
Assessment/Plan: Assessment: 30 yo M POD #6 washout of L4/5 aspergillosis infection after previous L4/5 microdiscectomy. Plan: 30y/o male with s/p L4/5 microdiscetomy/decompression in June 2016 at [facility] and then redo decompression and washout on 09/12/16 at [facility] found to Aspergillosis infection -Optimize pain management, Okay to use TENs unit from home, discussed as long as it is not over incisional muscles -Most recent 10/01 MRI lumbar spine stable and reviewed with patient -Continue PT/OT, discussed isometric, in chair/bed exercise. Ambulate 3x per day -Leave MARQUISE in for now -Pt has chosen to stay at [facility] and not transfer to - Biopsy today -Please notify NS with any change in neuro/motor exam -Discussed with Dr. Ellis and patient seen by him today as well Subjective: Pt resting in bed, states valium overnight helped with spasms in his leg. Ice helping his right calf. Objective: AAOx3 NAD VSS MAEx4 Motor 5/5 BLE +LT MARQUISE drain in place Urinary Catheter in Place: No - Physician Discussed Patient with : Rhonda Patient Seen by : Rhonda Neurosurgery Physical Exam - Vitals, I&O, Labs I and O 10/03/16 10/04/16 10/05/16 05:59 05:59 05:59 Intake Total 582 Output Total 1890 320 Balance -1308 -320 Intake: Oral (ml) 150 IV Infused (ml) 432 Ns 1,000 ml @ 125 mls/hr 432 IV CONT RICHAR Rx#: [id number] Output: Urine (ml) 1875 300 Toilet 675 Urinal 1200 300 MARQUISE Drain Output (ml) 15 20 Back Basilio Quiñonez 15 20 Other: Number of Voids Toilet 2 Number of Stools Toilet 1 Microbiology 09/26/16 16:35 Gram Stain - Final Back - Aspirate Vital Signs Temp Pulse Resp BP Pulse Ox 36.9 C 84 14 131/81 H 90 L 10/04/16 07:47 10/04/16 07:47 10/04/16 07:47 10/04/16 07:47 10/04/16 07:47 Laboratory Results 10/04/16 06:35 10/04/16 06:35 ICD10 Worksheet Patient Problems: Problems Problem Status Onset Lumbar back pain Acute
[2016-10-04] MEDS ORDERED: FLUMAZENIL 0.5 MG/5 ML MDV IVP ONE (11:24)
[2016-10-04] MEDS ORDERED: fentaNYL 100 MCG/2 ML INJ ONE ×2 (11:24→12:10)
[2016-10-04] MEDS ORDERED: NALOXONE HCL 0.4 MG/ML INJ ONE (11:24)
[2016-10-04] MEDS ORDERED: MIDAZOLAM 2 MG/2 ML VIAL ONE ×2 (11:25→12:10)
--- NOTE | 2016-10-04 13:03 | HOSPPROG ---
Hospitalist Progress Note Assessment/Plan: Hospitalist Progress Note Assessment/Plan: Patient is a 30-year-old male with a history of lumbar back pain who had a L4-5 microdiskectomy on 07/10/2016. Last week the pain became so bad he went to [place] and underwent a decompression and washout. He was discharged on Keflex. Cultures were obtained on 09/15/2016 which were positive for Aspergillus. At that time infections Disease prescribed for voriconazole. He presented to the emergency room with worsening back pain. *Aspergillus lumbar infection/diskitis, possible osteomyelitis @ L4-L5 Washout 09/12/2016 & 09/23/16. Patient with toxicity to micafungin with elevated LFTs, improving today. Plan biopsy of the disc space L4-L5 and paraspinous inflammatory area today to further establish control of infection re-challenge with voriconazole, Micafungin 100 mg IV daily, s/p 13 day liposomal amphotericin x1 day s/p drain placement in lumbar area 09/18 *renal insuff likely r/t amphotericin hydrated w 250 ml of saline prior to receiving this medication stop any nephrotoxic medications better *elevated LFT improving *poss dural tear resolved *right hip pain/possibly piriformis area/more gluteal/ radiculopathy type pain w associated spasms scheduled Robaxin, Gabapentin increased to 300 mg tid long acting morphine has been added by neurosurgical team the integrative team helped his pain *Leukocytosis resolved *Acute on chronic back pain ongoing/this varies day to day *constipation bowel protocol *dvt prophylaxis: LMWH/if creat cont to rise /will need to change to heparin tid *Plan: await bx results cont supportive care Subjective: Feeling anxious for procedure. Pain better today. Objective: Vital Signs Temp Pulse Resp BP Pulse Ox 36.9 C 84 14 131/81 H 90 L 10/04/16 07:47 10/04/16 07:47 10/04/16 07:47 10/04/16 07:47 10/04/16 07:47 Microbiology 09/26/16 16:35 Gram Stain - Final Back - Aspirate Laboratory Results 10/04/16 06:35 10/04/16 06:35 10/03/16 10/04/16 10/05/16 05:59 05:59 05:59 Intake Total 582 Output Total 1890 320 Balance -1308 -320 - Physical Exam Constitutional: appears nourished, chronically ill appearing Eyes: PERRL, anicteric sclera Ears, Nose, Mouth, Throat: moist mucous membranes, hearing normal Cardiovascular: regular rate and rhythym, No JVD Respiratory: no respiratory distress, reduced air movement Gastrointestinal: No tenderness, No ascites Skin: warm, normal color Musculoskeletal: generalized weakness, No normal joint ROM Neurologic: AAOx3, weakness Psychiatric: not encephalopathic, thought process linear, anxious ICD10 Worksheet Patient Problems: Problems Problem Status Onset Lumbar back pain Acute
--- NOTE | 2016-10-04 13:57 | POSTOPPROG ---
Post Op Note Date of Operation: 10/04/16 Surgeon: Jona Huizar Anesthesia: IV Sedation Pre-op Diagnosis: Back infection, treated Post-op Diagnosis: Same Indication: Looking for evidence of ongoing infection Procedure: 1. Needle aspiration L4-5 disc and tissues 2. Core needle biopsy of L5 Inf/Abcess present in the surg proc area at time of surgery?: Yes Depth: Organ Space (Currently on fluconazole for aspergillus) EBL: Minimal Specimen(s): 1. L4-5 disc aspirate 2. Aspirate of L4-5 interlaminar space 3. Bone biopsy L5 for tissue culture and histology
[2016-10-04] MEDS: BACLOFEN 10 MG TAB PO PRN (17:26)
[2016-10-04] MEDS: POLYETHYLENE GLYCOL 3350 17 GM PKT PO SCH (17:40)
--- NOTE | 2016-10-04 18:40 | PCMIDPN ---
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 Patient is currently on therapy with voriconazole. He continues to generally slowly improve. Bone biopsies sent to micro and pathology today. G stains with no fungal elements although GPCs (?) on 1. This may represent Enterococcus which would correspond to a late growing enterococcus from his initial culture although will wait until cultures come back from these biopsies before presuming this is a pathogen. Plan: 1. Continue voriconazole. Suspect 8 week total course of treatment. 2. Follow output from MARQUISE drain. Follow neuro surgical plan for repeat debridement if needed. 09/27/16 19:02 10/04/16 19:52 10/04/16 19:55 Subjective: Patient is resting in his hospital bed. Family in the room. He is relating that it is easier for him to get up and move around that was last week. No new fevers or chills. Slight vision changes but otherwise doing well. Objective: Voriconazole #2 Vital Signs Temp Pulse Resp BP Pulse Ox 37.1 C 89 14 137/81 H 98 10/04/16 15:43 10/04/16 15:43 10/04/16 15:43 10/04/16 15:43 10/04/16 15:43 Microbiology 10/04/16 12:30 Gram Stain - Final Back - Tissue 10/04/16 12:30 Gram Stain - Final Back - Aspirate 09/26/16 16:35 Gram Stain - Final Back - Aspirate Laboratory Results 10/04/16 06:35 10/04/16 06:35 10/03/16 10/04/16 10/05/16 05:59 05:59 05:59 Intake Total 582 Output Total 1890 320 900 Balance -1308 -320 -900 ESR 25 MM/HR (0-15) H 09/17/16 17:55 C-Reactive Protein 49.8 mg/L (<10.0) H 10/03/16 06:15 - Physical Exam General Appearance: WD/WN, alert, no apparent distress, non-toxic Respiratory: lungs clear, normal breath sounds, No respiratory distress Cardiac/Chest: regular rate, rhythm, No tachycardia Back: normal inspection, other (MARQUISE drain with slight amount of serosanguineous fluid.) Skin: normal color, warm/dry, No rash Neuro/Psych: alert, normal mood/affect, oriented x 3 ICD10 Worksheet Patient Problems: Problems Problem Status Onset Lumbar back pain Acute
[2016-10-04] MEDS: SENNOSIDES/DOCUSATE SODIUM TAB PO SCH (20:25)
[2016-10-05] VITALS: TEMP 98.4
[2016-10-05] MEDS: DIAZEPAM 5 MG TAB PO PRN ×2 (02:18→14:48)
[2016-10-05] MEDS: HYDROmorphONE/DILAUDID 2 MG TAB PO PRN ×2 (02:19→06:05)
[2016-10-05 05:19] LABS: % IMMATURE GRANULYOCYTES 1.3 % (0.0-1.1); ABSOLUTE IMMATURE GRANULOCYTES 0.11 10^3/uL (0.00-0.10); ADD DIFF? NO; ADD MORPH? NO; ADD SCAN? NO; ATYPICAL LYMPHOCYTE FLAG 30 (0-99); FRAGMENT RBC FLAG 0 (0-99); HEMATOCRIT 39.1 % (40.0-51.0); HEMOGLOBIN 12.7 g/dL (13.7-17.5); LEFT SHIFT FLG 10 (0-99); LIPEMIA HEMOLYSIS FLAG 80 (0-99); MEAN CELL HEMOGLOBIN 28.5 pg (27.9-34.1); MEAN CELL HEMOGLOBIN CONCENTR. 32.5 g/dL (32.4-36.7); MEAN CELL VOLUME 87.9 fL (81.5-99.8); MEAN PLATELET VOLUME 9.4 fL (8.7-11.7); PLATELET CLUMPS FLAG 0 (0-99); PLATELET COUNT 512 10^3/uL (150-400); RED BLOOD CELL COUNT 4.45 10^6/uL (4.40-6.38); RED CELL DISTRIBUTION WIDTH 12.9 % (11.5-15.2)
[2016-10-05 05:24] LABS: ALANINE AMINOTRANSFERASE 190 IU/L (21-72); ALBUMIN 3.7 g/dL (3.5-5.0); ALKALINE PHOSPHATASE 136 IU/L (38-126); ANION GAP 14 mEq/L (8-16); ASPARTATE AMINOTRANSFERASE 49 IU/L (17-59); BILIRUBIN,TOTAL 0.7 mg/dL (0.1-1.4); CALCIUM 10.1 mg/dL (8.5-10.4); CARBON DIOXIDE 25 mEq/l (22-31); CHLORIDE 101 mEq/L (97-110); GLOMERULAR FILTRATION RATE > 60; GLUCOSE 105 mg/dL (70-100); MAGNESIUM 2.1 mg/dL (1.6-2.3); POTASSIUM 4.8 mEq/L (3.5-5.2); SODIUM 140 mEq/L (134-144); TOTAL PROTEIN 6.9 g/dL (6.3-8.2)
[2016-10-05 07:18] VITALS: BP 121/72; PULSE 77; RESP 14; O2SAT 93
[2016-10-05] MEDS: morphINE SR 15 MG TAB PO SCH (08:42)
[2016-10-05] MEDS: METHOCARBAMOL 750 MG TAB PO SCH ×2 (08:42→14:48)
[2016-10-05] MEDS: POLYETHYLENE GLYCOL 3350 17 GM PKT PO SCH (08:43)
[2016-10-05] MEDS: GABAPENTIN 300 MG CAP PO SCH ×2 (08:43→14:48)
[2016-10-05] MEDS: VORICONAZOLE 200 MG TAB PO SCH (08:43)
--- NOTE | 2016-10-05 13:50 | PDIAF ---
- Diagnosis Diagnosis: Postoperative back infection due to Aspergillus Code Status: Full Code - Medication Management Discharge Medications: Medications to Continue on Transfer Baclofen [Baclofen 10 mg (*)] 10 mg PO Q8H PRN 09/17/16 [Last Taken Unknown] Alteplase [Cathflo Activase 2 mg (*)] 2 mg IVP PRN PRN #0 vial 10/05/16 [Last Taken Unknown] Diazepam [Valium 5 MG (*)] 2.5 - 5 mg PO Q6 PRN #0 tab 10/05/16 [Last Taken Unknown] Enoxaparin [Lovenox 40 MG (*)] 40 mg SC DAILY syr 10/05/16 [Last Taken Unknown] Gabapentin [Neurontin 300 MG (*)] 300 mg PO TID@0800,1500,2100 cap 10/05/16 [ Last Taken Unknown] HYDROmorphone HCL [Dilaudid 2 mg (*)] 2 mg PO Q4HRS PRN #0 tab 10/05/16 [Last Taken Unknown] Magnesium Oxide [Magnesium Oxide 400 mg (*)] 400 mg PO HS tab 10/05/16 [Last Taken Unknown] Methocarbamol [Robaxin 750 mg (*)] 750 mg PO TID@0800,1500,2100 tab 10/05/16 [ Last Taken Unknown] Ondansetron Odt [Zofran Odt 4 mg (*)] 4 mg PO Q4HRS PRN #0 tab 10/05/16 [Last Taken Unknown] Polyethylene Glycol 3350 [Miralax 17 gm (*)] 17 gm PO DAILY pkt 10/05/16 [Last Taken Unknown] Sennosides/Docusate Sodium [Senokot-S] 1 tab PO HS tab 10/05/16 [Last Taken Unknown] Voriconazole [Vfend 200MG (*)] 200 mg PO BID tab 10/05/16 [Last Taken Unknown] morphINE SR [Ms Contin/Oramorph 15 mg (*)] 15 mg PO BID@0800,2000 tab 10/05/16 [Last Taken Unknown] traMADol [Ultram 50 mg (*)] 50 - 100 mg PO Q6HRS PRN #0 tab 10/05/16 [Last Taken Unknown] Half-Way Antibiotics: voriconazole 200 mg p.o. twice daily [employer] Antibiotic Stop Date: 11/29/16 Discharge Medications: Refer to the Discharge Home Medication list for PRN reason. PICC Care - Routine: Yes - Orders Diet Recommendation: no restrictions on diet - Labs/Radiology CBC Date: 10/08/16 ( weekly Q Saturday) CMP Date: 10/08/16 ( weekly Q Saturday) LFT Date: 10/11/16 ( weekly Q ) Other Lab Name, Date and Time: voriconazole level; draw 30 minutes before dose on 10/11/16 Call or Fax Lab and Imaging Results to: Dr. Pereira, - Follow Up Care Current Providers and Referrals: MADI ACOSTA [Primary Care Provider] - Tam Pereira MD [Medical Doctor] - 10/11/16 1:00 pm
--- NOTE | 2016-10-05 13:58 | PCMIDPN ---
Assessment/Plan: Assessment/Plan: * Aspergillus wound infection/L4-L5 diskitis with probable osteomyelitis post microdiskectomy status post incision and drainage: oral voriconazole reintroduced and patient is tolerating well today was some mild visual disturbance. Anticipate 8 week course of voriconazole in the setting of vertebral osteomyelitis/diskitis. Gram stain of 1 biopsy specimen shows GPC but no growth to date. Unclear if this represents artifact versus true finding. Cultures remain negative to date and will continue to be followed. Will not add additional antibiotic therapy at this time. Plan weekly CBC and CMP on voriconazole with twice weekly LFTs based on prior transaminitis. Will check for voriconazole level on 10/11/2016. Will maintain PICC line in short- term pending additional culture results in the event becomes necessary to add antibacterial agent based on culture. * Drug-induced hepatitis: Most likely related to micafungin. Resolving after discontinuation. 10/05/16 13:55 10/05/16 13:59 Subjective: Patient feels clinically improved with decreasing back pain. Mild visual disturbance with voriconazole. Objective: Vital Signs Temp Pulse Resp BP Pulse Ox 36.9 C 77 14 121/72 H 93 10/05/16 07:16 10/05/16 07:16 10/05/16 07:16 10/05/16 07:16 10/05/16 07:16 Microbiology 09/26/16 16:35 Gram Stain - Final Back - Aspirate 10/04/16 12:30 Gram Stain - Final Back - Tissue 10/04/16 12:30 Gram Stain - Final Back - Aspirate Laboratory Results 10/05/16 05:00 10/05/16 05:00 10/04/16 10/05/16 10/06/16 05:59 05:59 05:59 Intake Total 1050 Output Total 320 1820 10 Balance -320 -770 -10 ESR 25 MM/HR (0-15) H 09/17/16 17:55 C-Reactive Protein 49.8 mg/L (<10.0) H 10/03/16 06:15 1 back aspirate showing gram-positive cocci with cultures remaining negative. Laboratory Tests 10/05/16 05:00 Total Bilirubin 0.7 AST 49 ALT 190 H Alkaline Phosphatase 136 H - Physical Exam General Appearance: alert, no apparent distress EENT: No scleral icterus Abdomen: non-tender, No distended Back: other (Incision intact without erythema or drainage) - Line/s RUE PICC Lines: No drainage, No erythema ICD10 Worksheet Patient Problems: Problems Problem Status Onset Lumbar back pain Acute
--- NOTE | 2016-10-05 14:04 | PDIAF ---
- Diagnosis Diagnosis: Postoperative back infection due to Aspergillus Code Status: Full Code - Medication Management Discharge Medications: Medications to Continue on Transfer Baclofen [Baclofen 10 mg (*)] 10 mg PO Q8H PRN 09/17/16 [Last Taken Unknown] Alteplase [Cathflo Activase 2 mg (*)] 2 mg IVP PRN PRN #0 vial 10/05/16 [Last Taken Unknown] Diazepam [Valium 5 MG (*)] 2.5 - 5 mg PO Q6 PRN #0 tab 10/05/16 [Last Taken Unknown] Enoxaparin [Lovenox 40 MG (*)] 40 mg SC DAILY syr 10/05/16 [Last Taken Unknown] Gabapentin [Neurontin 300 MG (*)] 300 mg PO TID@0800,1500,2100 cap 10/05/16 [ Last Taken Unknown] HYDROmorphone HCL [Dilaudid 2 mg (*)] 2 mg PO Q4HRS PRN #0 tab 10/05/16 [Last Taken Unknown] Magnesium Oxide [Magnesium Oxide 400 mg (*)] 400 mg PO HS tab 10/05/16 [Last Taken Unknown] Methocarbamol [Robaxin 750 mg (*)] 750 mg PO TID@0800,1500,2100 tab 10/05/16 [ Last Taken Unknown] Ondansetron Odt [Zofran Odt 4 mg (*)] 4 mg PO Q4HRS PRN #0 tab 10/05/16 [Last Taken Unknown] Polyethylene Glycol 3350 [Miralax 17 gm (*)] 17 gm PO DAILY pkt 10/05/16 [Last Taken Unknown] Sennosides/Docusate Sodium [Senokot-S] 1 tab PO HS tab 10/05/16 [Last Taken Unknown] Voriconazole [Vfend 200MG (*)] 200 mg PO BID tab 10/05/16 [Last Taken Unknown] morphINE SR [Ms Contin/Oramorph 15 mg (*)] 15 mg PO BID@0800,2000 tab 10/05/16 [Last Taken Unknown] traMADol [Ultram 50 mg (*)] 50 - 100 mg PO Q6HRS PRN #0 tab 10/05/16 [Last Taken Unknown] Retirement Antibiotics: voriconazole 200 mg p.o. twice daily [employer] Teacher Antibiotic Stop Date: 11/29/16 Discharge Medications: Refer to the Discharge Home Medication list for PRN reason. PICC Care - Routine: Yes - Orders Services needed: Registered Nurse, Physical Therapy, Occupational Therapy Diet Recommendation: no restrictions on diet - Labs/Radiology CBC Date: 10/08/16 ( weekly Q Saturday) CMP Date: 10/08/16 ( weekly Q Saturday) LFT Date: 10/11/16 ( weekly Q ) Other Lab Name, Date and Time: voriconazole level; draw 30 minutes before dose on 10/11/16 Call or Fax Lab and Imaging Results to: Dr. Pereira, - Follow Up Care Current Providers and Referrals: MADI ACOSTA [Primary Care Provider] - Tam Pereira MD [Medical Doctor] - 10/11/16 1:00 pm
[2016-10-05] MEDS ORDERED: MAGNESIUM OXIDE 400 MG TAB PO SCH (21:00)
--- NOTE | 2016-10-06 04:41 | GDS ---
[f rep st] DISCHARGE SUMMARY DISCHARGE DIAGNOSES: 1. Aspergillus wound infection and diskitis with probable osteomyelitis at L4-L5. 2. Renal insufficiency. 3. Transaminitis. 4. Right lower extremity pain. 5. Leukocytosis. CONSULTATIONS: 1. Infectious Disease. 2. Neurosurgery. PHYSICAL EXAMINATION: GENERAL: The patient is alert. VITAL SIGNS: Afebrile at 36.9, pulse is 77, respiratory rate 14, blood pressure is 121/72. He is saturating 93% on room air. I have seen and evaluated the patient on the day of discharge. HOSPITAL COURSE: The patient is a 30-year-old male with a complicated surgical history, who present ed to the emergency room for further evaluation. He was diagnosed with: 1. Aspergillus wound infection with diskitis and probable osteomyelitis at L4-L5. During this hosp italization, he had several repeat washouts, as well as multiple cultures obtained. He also had a b iopsy taken in Interventional Radiology. He is to continue on voriconazole and continue followup wi Infectious Disease. He seems to be responding to therapy and further cultures and biopsy results will be followed in the outpatient setting. 2. Renal insufficiency. This is likely medication induced and has resolved with fluid resuscitatio n. 3. Transaminitis. Also was reaction to medication therapy and is continuing to improve. 4. Right lower extremity pain. The patient will continue to use his TENS unit, which is providing him good relief. 5. Leukocytosis. This has resolved. DISPOSITION: The patient will be discharged to [facility] for further therapy and str engthening. He will continue his oral voriconazole for an anticipated 8-week course. His PICC line will remain in in case treatment regimen requires adjustment. I have discussed the patient's dispo sition with Dr. Tam Pereira, who is in agreement with this plan. Follow up will be in the outpatient setting with [facility], as well as Dr. Ellis of Neurosurgery. DISCHARGE MEDICATIONS: Please refer to the EMR form. It was recommended that the patient continue icing as needed, as well as his TENS unit as needed. I spent greater than 35 minutes in the care, coordination, and management of this patient's disposit ion. /[id number]/MODL
== END 2016-10-05 16:01 | DRG 857 ==
LOC: F3N 21:11
PROVIDERS: ADMIT Internal Medicine; ATTEND Internal Medicine
PROC: 009U30Z Drainage of Spinal Canal with Drainage Device, Percutaneous Approach (ICD-10-PCS; 2016-09-18)
PROC: 02HV33Z Insertion of Infusion Device into Superior Vena Cava, Percutaneous Approach (ICD-10-PCS; 2016-09-21)
PROC: 3E1R38Z Irrigation of Spinal Canal using Irrigating Substance, Percutaneous Approach (ICD-10-PCS; 2016-09-23)
PROC: 0SB Lower Joints, Excision (ICD-10-PCS; principal; 2016-10-04 13:10)
PROC: 0QB03ZX Excision of Lumbar Vertebra, Percutaneous Approach, Diagnostic (ICD-10-PCS; principal; 2016-10-04 13:10)
DX: T81.4XXA Infection following a procedure, initial encounter (principal); M46.26 Osteomyelitis of vertebra, lumbar region; B44.89 Other forms of aspergillosis; M46.46 Discitis, unspecified, lumbar region; N28.9 Disorder of kidney and ureter, unspecified; M79.604 Pain in right leg; G89.29 Other chronic pain; K59.00 Constipation, unspecified; Z79.2 Long term (current) use of antibiotics; G96.0 Cerebrospinal fluid leak
CPT/HCPCS: 82784-90; 86162-90; 86360-90; 97110-GO; 97110-GP; 97116-GP; 97162-GP; 97165-GO; 97530-GO; 97530-GP; 97535-GO; A9585; C1729; C1751; C1769; J0289; J0690; J1170; J1450; J1650; J2248; J2250; J2310; J2405; J2550; J2704; J3010; J3370; J3465; Q9967